=== PATIENT | female | born 1940 | race Asian ===

== ENCOUNTER 2017-05-11 10:50 | Emergency (ER) | payer MEDICARE, OTHER ==
[~2017-05-11] VITALS: Ht 160 cm; Wt 63.5 kg
[2017-05-11 15:10] LABS: Basophils # (auto) 0 uL; Basophils % (auto) 0.3 % (0.0-2.0); Eosinophils # (auto) 0.2 uL; Eosinophils % (auto) 2.1 % (0.0-7.0); Hematocrit 38.5 % (36.0-46.0); Hemoglobin 12.9 g/dL (12.2-16.2); Lymphocytes # (auto) 1.8 uL; Lymphocytes % (auto) 20.7 % (10.0-50.0); Mean Corpuscular Hemoglobin 30.9 pg (28.0-32.0); Mean Corpuscular Hgb Conc. 33.5 g/dL (32.0-36.0); Mean Corpuscular Volume 92.2 fL (80.0-100.0); Monocytes # (auto) 0.1 uL; Monocytes % (auto) 1.3 % (0.0-12.0); Neutrophils # (auto) 6.7 uL; Neutrophils % (auto) 75.6 % (37.0-80.0); Nucleated Red Blood Cells % 0.2 %; Platelet Count (auto) 165 10^3/uL (140-450); Red Blood Cells 4.18 10^6/uL (4.0-5.20); Red Cell Distribution Width 15.1 % (11.8-14.3); White Blood Cell 8.8 10^3/uL (4.4-10.8)
[2017-05-11 15:19] LABS: Potassium 4.4 mmol/L (3.5-5.1)
[2017-05-11 15:20] LABS: Albumin 3.5 g/dL (3.4-5.0); BUN/Creatinine Ratio 21.1; Bilirubin, Total 1.3 mg/dL (0.2-1.0); Calcium 8.3 mg/dL (8.5-10.1); Total Protein 7.4 g/dL (6.4-8.2)
[2017-05-11 20:53] LABS: Urine Bacteria FEW /hpf (None Seen); Urine Blood 1+ /uL (Negative); Urine Hyaline Cast FEW /lpf (0 - 2); Urine Mucus FEW (None Seen); Urine Specific Gravity 1.025 (1.001-1.035); Urine WBC 382 /hpf (0 - 5)
[2017-05-12 01:50] VITALS: BP 106/62
== END 2017-05-12 03:26 | disposition left against medical advice (07) ==
LOC: EDBD 10:50 → ER 10:50
DX: J06.9 Acute upper respiratory infection, unspecified (principal); K72.90 Hepatic failure, unspecified without coma
CPT/HCPCS: 36415; 71046; 80053; 81001; 85025; 93005

== ENCOUNTER 2018-11-11 18:37 | Inpatient (IN) | payer MEDICARE, OTHER ==
[~2018-11-11] VITALS: Ht 160 cm; Wt 73.2 kg
[2018-11-11] MEDS ORDERED: IPRATROPIUM BROM 0.5 MG/2.5ML INH SOL NEB ONE (23:15)
[2018-11-11] MEDS ORDERED: ALBUTEROL SULF 2.5 MG/0.5ML(0.5%) NEB SOLN NEB ONE (23:15)
[2018-11-11 23:27] LABS: Basophils # (auto) 0 uL; Eosinophils # (auto) 0.2 uL; Monocytes # (auto) 0.5 uL
[2018-11-11 23:29] LABS: Basophils % (auto) 0.6 % (0.0-2.0); Eosinophils % (auto) 4.1 % (0.0-7.0); Lymphocytes # (auto) 1.3 uL; Lymphocytes % (auto) 26.4 % (10.0-50.0); Mean Corpuscular Hemoglobin 24.2 pg (28.0-32.0); Mean Corpuscular Hgb Conc. 31.6 g/dL (32.0-36.0); Mean Corpuscular Volume 76.7 fL (80.0-100.0); Monocytes % (auto) 9.9 % (0.0-12.0); Platelet Count (auto) 154 10^3/uL (140-450); Red Blood Cells 4.56 10^6/uL (4.0-5.20); Red Cell Distribution Width 19.8 % (11.8-14.3); White Blood Cell 5.1 10^3/uL (4.4-10.8)
[2018-11-11 23:35] LABS: Urine Bacteria FEW /hpf (None Seen); Urine Blood Negative /uL (Negative); Urine Mucus FEW (None Seen); Urine Specific Gravity 1.024 (1.001-1.035); Urine WBC 1 /hpf (0 - 5)
[2018-11-11 23:40] LABS: Partial Thromboplastin Time 26.3 sec (23.64-32.05)
[2018-11-11 23:45] LABS: Alanine Aminotransferase 12 U/L (13-56); Anion Gap 10 (5-15); Aspartate Aminotransferase 10 U/L (15-37); BUN/Creatinine Ratio 20.2; Blood Urea Nitrogen 18 mg/dL (7-18); Carbon Dioxide 22 mmol/L (21-32); Chloride 111 mmol/L (98-107); GFR African American 79 mL/min; GFR Non-African American 65 mL/min; Glucose 98 mg/dL (74-106); Sodium 143 mmol/L (136-145)
[2018-11-11 23:47] LABS: Lactic Acid w/Reflex 2.9 mmol/L (0.4-2.0)
[2018-11-11 23:50] LABS: Alkaline Phosphatase 105 U/L (45-117); Bilirubin, Total 0.3 mg/dL (0.2-1.0); Total Protein 7.1 g/dL (6.4-8.2)
[2018-11-12] VITALS (7 sets, daily range): BP systolic 94–115; BP diastolic 49–70
[2018-11-12] MEDS ORDERED: VANCOMYCIN 1GM/250ML 250 ML IV ONE (01:15)
[2018-11-12] MEDS ORDERED: SODIUM CHLORIDE 0.9% 500 ML IV ONE (01:30)
[2018-11-12] MEDS ORDERED: ACETAMINOPHEN 325 MG TAB PO PRN (02:30)
[2018-11-12] MEDS ORDERED: TEMAZEPAM 15 MG CAP PO PRN (02:30)
[2018-11-12] MEDS ORDERED: ONDANSETRON HCL 4 MG/2 ML VIAL IV PRN (02:30)
[2018-11-12] MEDS ORDERED: ALBUTEROL SULF 2.5 MG/0.5ML(0.5%) NEB SOLN NEB PRN (02:30)
--- NOTE | 2018-11-12 03:05 | NUR ---
MS admit from ER PRAMOD MARR admitted to tele/MS after SBAR received. Patient oriented to Amanda Brewster, primary RN, unit, room, bed, and unit policies regarding patient care and visiting hours. Patient weighed by bedscale and encouraged to call if they need something. All questions and concerns addressed, patient verbalized understanding. Note:
--- NOTE | 2018-11-12 04:00 | NUR ---
PHOTOGRAPH OF BOIL ON RIGHT BUTTOCK OBTAINED.
[2018-11-12] MEDS: CLINDAMYCIN 600MG IV 50 ML IV SCH ×3 (05:27→21:36)
--- NOTE | 2018-11-12 06:31 | NUR ---
PT STATES SHE IS IN PAIN-BUT IS REFUSING TYLENOL WHICH IS WHAT THE MD HAS ORDERED FOR HER.PT STATES SHE WANTS THREE "STRESS PILLS' BUT DOES NOT KNOW THE NAME OF THE STRESS PILLS.PT AMBULATED TO THE BR WITH STANDBY ASSISTANCE;BACK IN BED. PT INFORMED THE RN IN JAPANESE VIA WEAVING LOOM OPERATOR IAP DISPLAYS ANALYST THAT THE MD DOWNSTAIRS SAID WE WERE TO GIVE HER ANYTHING SHE WANTS.
--- NOTE | 2018-11-12 06:55 | NUR ---
HOSPITALIST PAGED THROUGH PBX BECAUSE PT WANTS SIMPSON. WAITING CALL BACK.
[2018-11-12] MEDS: HYDROcodone-ACET 5/325MG TAB PO PRN ×2 (07:19→18:54)
--- NOTE | 2018-11-12 07:22 | NUR ---
Opening Shift Note Assumed care of patient, awake and alert. No S/S of distress/SOB or pain. Instructed on POC and to call for assist PRN, will continue to monitor for changes Q1hr and PRN. Bed locked in lowest position with two side rails up and call light in reach.
--- NOTE | 2018-11-12 08:34 | NUR ---
Respiratory note: ASSESSED PT FOR PRN TX PT WAS AWAKE AND ALERT NO RESP DISTRESS NOTED. HR 79, RR 16, SPO2 96% ON ROOM AIR. BS ARE CLEAR, NO INDICATION FOR TX AT THIS TIME. PT KNOWS TO HAVE RT PAGED IF TX IS NEEDED.
[2018-11-12] MEDS: ATENOLOL 25 MG TAB PO SCH ×2 (10:00→21:36)
[2018-11-12] MEDS: FAMOTIDINE 20 MG TAB PO SCH ×2 (10:00→21:36)
--- NOTE | 2018-11-12 19:20 | NUR ---
Respiratory note: ASSESSED PT FOR PRN MED NEB AT THIS TIME, NO RESP DISTRESS NOTED, NO TX INDICATED, PULSE OX 93% ON RA, HR 78, RR 22, BILATERAL BS CRACKLES.
--- NOTE | 2018-11-12 20:00 | NUR ---
OPENING SHIFT NOTE: PATIENT IS RESTING IN BED. NO COMPLAINTS OF PAIN OR SOB. SITTER IS BEDSIDE. CALL LIGHT IS WITHIN REACH. BED IS LOCKED IN LOWEST POSITION AND SIDE RAILS UP X2. WILL CONTINUE TO MONITOR.
[2018-11-13 05:51] LABS: Eosinophils # (auto) 0.3 uL; Hemoglobin 10.8 g/dL (12.2-16.2); Monocytes # (auto) 0.4 uL; Neutrophils # (auto) 2.3 uL
[2018-11-13 05:56] LABS: Basophils # (auto) 0.1 uL; Basophils % (auto) 1.9 % (0.0-2.0); Hematocrit 33.6 % (36.0-46.0); Lymphocytes % (auto) 24.3 % (10.0-50.0); Mean Corpuscular Hemoglobin 24.9 pg (28.0-32.0); Mean Corpuscular Hgb Conc. 32.1 g/dL (32.0-36.0); Mean Corpuscular Volume 77.6 fL (80.0-100.0); Monocytes % (auto) 9.7 % (0.0-12.0); Neutrophils % (auto) 56.1 % (37.0-80.0); Nucleated Red Blood Cells % 0.1 %; Platelet Count (auto) 49 10^3/uL (140-450); Red Blood Cells 4.33 10^6/uL (4.0-5.20); Red Cell Distribution Width 19.8 % (11.8-14.3); White Blood Cell 4.1 10^3/uL (4.4-10.8)
[2018-11-13 06:04] LABS: Anion Gap 8 (5-15); BUN/Creatinine Ratio 27.9; Blood Urea Nitrogen 19 mg/dL (7-18); Calcium 8.2 mg/dL (8.5-10.1); Carbon Dioxide 21 mmol/L (21-32); Chloride 113 mmol/L (98-107); GFR African American 108 mL/min; GFR Non-African American 89 mL/min; Glucose 81 mg/dL (74-106); Potassium 4.7 mmol/L (3.5-5.1); Sodium 142 mmol/L (136-145)
[2018-11-13] MEDS: HYDROcodone-ACET 5/325MG TAB PO PRN ×2 (06:29→18:38)
[2018-11-13] MEDS: CLINDAMYCIN 600MG IV 50 ML IV SCH ×3 (06:29→22:01)
[2018-11-13 08:00] VITALS: BP 101/61
--- NOTE | 2018-11-13 08:34 | NUR ---
RT NOTE: PRN BREATHING TX. NOT INDICATED AT THIS TIME. NO S/S OF RESPIRATORY DISTRESS NOTED. PT.HR 68, RR 20, POX 96% R/A. SITTER AT BEDSIDE.
--- NOTE | 2018-11-13 09:03 | NUR ---
PAGED AND RECEIVED A CALL BACK FROM ASSISTANT PROPERTY MANAGER DEPARTMENT HELPER [employer]. NOTIFIED HER OF SOCIAL SERVICE CONSULT.
--- NOTE | 2018-11-13 09:30 | NUR ---
PATIENTS ROMA MURPHY BROUGHT PATIENT HER HOME WALKER. WALKER AT BEDSIDE.
[2018-11-13] MEDS: ATENOLOL 25 MG TAB PO SCH ×2 (10:00→22:00)
[2018-11-13] MEDS: FAMOTIDINE 20 MG TAB PO SCH ×2 (10:00→22:00)
[2018-11-13 10:05] VITALS: BP 101/61
--- NOTE | 2018-11-13 10:50 | NUR ---
DR MARC FUNEZ
--- NOTE | 2018-11-13 11:55 | NUR ---
PATIENT TOOK SHOWER BACK IN BED WITHOUT INCIDENT.
--- NOTE | 2018-11-13 12:45 | NUR ---
CALLED ROMA MURPHY AT [phone] CELL NUMBER PER SON HE WORKS FROM [phone] DAILY AND WILL NOT BE ABLE TO PICK HER UP UNTIL AFTER 152911/14/18. EVEN THOUGH HE WORKS DAILY SHE DOES HAVE A HOME HEALTH AGENCY THAT COMES OUT FROM [phone] DAILY, PER SON HE DOES NOT KNOW HEALTH CARE AGENCY NAME. PER ROMA MURPHY IT IS OK TO DISCHARGE HOME TOMORROW. WILL LET DR TRAN KNOW
[2018-11-13 13:00] VITALS: BP 93/51
--- NOTE | 2018-11-13 14:45 | NUR ---
ROUNDS PATIENT SLEEPING
--- NOTE | 2018-11-13 15:36 | NUR ---
ROUNDS PATIENT TALKING WITH NEIGHBORS FAMILY. NO SIGNS AND SYMPTOMS OF DISTRESS NOTED.
[2018-11-13 17:00] VITALS: BP 93/54
--- NOTE | 2018-11-13 17:18 | NUR ---
PATIENTS BLOOD PRESSURES HAVE BEEN ON THE LOWER SIDE THE PAST TWO DAYS LAST BP FOR MY SHIFT 94/62 HEART RATE 65. ASYMPTOMATIC AMBULATORY.
--- NOTE | 2018-11-13 20:30 | NUR ---
Respiratory note: ASSESSED PT FOR PRN TX. PT IS CURRENTLY ON ROOM AIR: HR 70, RR 18, SPO2 96%. PT SHOWS NO S/S OF RESPIRATORY DISTRESS. MED NEB TX NOT INDICATED AT THIS TIME. WILL CONTINUE TO MONITOR.
[2018-11-13 22:15] VITALS: BP 126/75
[2018-11-14 05:00] VITALS: BP 105/51
[2018-11-14 08:39] VITALS: BP 146/79
[2018-11-14] MEDS: CLINDAMYCIN 600MG IV 50 ML IV SCH (08:40)
[2018-11-14] MEDS: HYDROcodone-ACET 5/325MG TAB PO PRN (08:40)
--- NOTE | 2018-11-14 09:46 | NUR ---
Respiratory note: ASSESSED PT FOR PRN MEDNEB TX. HR 71, RR 16, POX 98% ON ROOM AIR. BREATH SOUNDS CLEAR/DIMINISHED THROUGHOUT. NO S/S OF RESPIRATORY DISTRESS NOTED. MEDNEB TX NOT INDICATED AT THIS TIME. WROTE RT NAME AND PAGER NUMBER ON WHITEBOARD. WILL CONTINUE TO MONITOR.
[2018-11-14] MEDS: FAMOTIDINE 20 MG TAB PO SCH (10:00)
[2018-11-14] MEDS: ATENOLOL 25 MG TAB PO SCH (10:00)
[2018-11-14 12:39] VITALS: BP 144/70
[2018-11-14 13:59] VITALS: BP 146/79
--- NOTE | 2018-11-14 16:51 | NUR ---
assessment Patient is a 78 year old Zimbabwean speaking female who is alert and oriented. Patients caregiver Cierra is translating for us. Patients PCP is Dr Herrera. Patient has a rollator for home use. Patient has been informed that she has a ss consult for patient is unable to take care of herself. 2nd ss consult SNF placement. Patient is refusing SNF. Patient will return home with caregiver and son on discharge. Patient and her caregiver Cierra informed me that patient is never alone. Per Cierra she comes in from 8am to 3pm and patients son Mike is with patient from 3pm until 8am. Patient feels safe at home and has no post discharge needs. Addendum: 11/14/18 at 1655 by Funmilayo Brumfield Amended: Links added.
== END 2018-11-14 14:50 | disposition home or self-care (01) | DRG 602 ==
LOC: EDBD 18:37 → ER 18:43 → WEST WING 18:44
PROVIDERS: ADMIT Nurse Practitioner; ATTEND Family Medicine
DX: L02.31 Cutaneous abscess of buttock (principal); J18.9 Pneumonia, unspecified organism; R62.7 Adult failure to thrive; I50.9 Heart failure, unspecified; I11.0 Hypertensive heart disease with heart failure; K21.9 Gastro-esophageal reflux disease without esophagitis; G47.00 Insomnia, unspecified; L03.317 Cellulitis of buttock; Z95.0 Presence of cardiac pacemaker; Z88.0 Allergy status to penicillin; Z79.899 Other long term (current) drug therapy; Z88.2 Allergy status to sulfonamides; Z68.28 Body mass index [BMI] 28.0-28.9, adult
CPT/HCPCS: 36415; 71045; 80048; 80053; 81001; 83605; 83880; 84484; 85025; 85610; 85730; 87040; 93005; 94640; 96365; G0378; J3490

== ENCOUNTER 2019-10-24 08:58 | Inpatient (IN) | payer MEDICARE, OTHER ==
[~2019-10-24] VITALS: Ht 154.9 cm; Wt 79.8 kg
[2019-10-24] MEDS ORDERED: ACETAMINOPHEN 650 MG RECT SUPP PR ONE ×2 (09:44→09:48)
[2019-10-24] MEDS ORDERED: LORazepam 2MG/ML-1ML VIAL ONE ×2 (10:00→10:02)
[2019-10-24] MEDS ORDERED: LORazepam 2MG/ML-1ML VIAL IV ONE ×2 (10:00→11:45)
[2019-10-24] MEDS ORDERED: IBUPROFEN 100MG/5ML ORAL SUSP 100 MG/5 ML UD ONE (10:21)
[2019-10-24] MEDS ORDERED: ACETAMINOPHEN 650 mg PER 20 mL UD ONE (10:21)
[2019-10-24] MEDS ORDERED: ACETAMINOPHEN 650 mg PER 20 mL UD PO ONE ×2 (10:30→20:45)
[2019-10-24] MEDS ORDERED: IBUPROFEN 100MG/5ML ORAL SUSP 100 MG/5 ML UD PO ONE (10:30)
[2019-10-24 10:31] LABS: Urine Bacteria FEW /hpf (None Seen); Urine Blood Negative /uL (Negative); Urine Mucus FEW (None Seen); Urine Specific Gravity 1.029 (1.001-1.035); Urine WBC 2 /hpf (0 - 5)
[2019-10-24] MEDS ORDERED: diphenhdrAMINE HCL 50 MG/1 ML VL IV ONE (11:45)
[2019-10-24] MEDS ORDERED: HALOPERIDOL LACTATE 5 MG/ML INJ VIAL IM ONE (11:45)
[2019-10-24 12:37] LABS: Albumin 2.7 g/dL (3.4-5.0)
[2019-10-24 12:38] LABS: INR 1.23 (0.9-1.15); Lactic Acid w/Reflex 10.9 mmol/L (0.4-2.0); Partial Thromboplastin Time 29.2 sec (23.64-32.05)
[2019-10-24 12:40] LABS: Albumin 2.7 g/dL (3.4-5.0); Anion Gap 18 (5-15); Blood Urea Nitrogen 39 mg/dL (7-18); Carbon Dioxide 16 mmol/L (21-32); Chloride 113 mmol/L (98-107); Glucose 99 mg/dL (74-106); Magnesium 2.3 mg/dL (1.6-2.6); Potassium 4.6 mmol/L (3.5-5.1); Sodium 147 mmol/L (136-145)
[2019-10-24 12:42] LABS: Bilirubin, Direct 0.3 mg/dL (0-0.2); Bilirubin, Total 0.8 mg/dL (0.2-1.0); Total Protein 6.3 g/dL (6.4-8.2)
[2019-10-24 12:44] LABS: Alanine Aminotransferase 23 U/L (13-56); Alkaline Phosphatase 58 U/L (45-117); Aspartate Aminotransferase 64 U/L (15-37); BUN/Creatinine Ratio 19.4; Bilirubin, Total 0.8 mg/dL (0.2-1.0); GFR African American 31 mL/min; GFR Non-African American 25 mL/min; Lactate Dehydrogenase 396 U/L (84-246); Total Protein 6.3 g/dL (6.4-8.2)
[2019-10-24] MEDS ORDERED: LABETALOL HCL 5 MG/ML 4ML SYRINGE IV ONE ×2 (12:58→13:00)
[2019-10-24] MEDS ORDERED: ONDANSETRON HCL 4 MG/2 ML VIAL ONE (13:00)
[2019-10-24] MEDS ORDERED: HEPARIN SODIUM (PORCINE) 5000 UNITS/ML 1ML VIAL IV ONE (13:00)
[2019-10-24] MEDS ORDERED: MORPHINE SULF INJ 2 MG/ML SYRINGE 1ML ONE (13:00)
[2019-10-24 13:11] LABS: Blood Alcohol < 3.0 mg/dL (0-5)
[2019-10-24] MEDS ORDERED: NITROGLYCERIN 50MG/250ML 250 ML IV ONE (13:15)
[2019-10-24] MEDS ORDERED: HEPARIN IN NS 1000Units/500mL 0 ML ONE (13:27)
[2019-10-24] MEDS ORDERED: IODIXANOL 320MG/ML 100ML BTL IV ONE (13:27)
[2019-10-24] MEDS ORDERED: LIDOCAINE 2%HCL (LOCAL ANESTH.) INJ 20ML MDV ONE (13:27)
[2019-10-24] MEDS ORDERED: IOHEXOL 350 MG/ML 100ML IJ ONE (13:31)
[2019-10-24] MEDS ORDERED: levoFLOXacin 500MG 100 ML IV ONE (14:00)
[2019-10-24] MEDS ORDERED: MORPHINE SULF INJ 2 MG/ML SYRINGE 1ML IV PRN (14:00)
[2019-10-24] MEDS ORDERED: NITROGLYCERIN 0.4 MG SL TAB SL PRN (14:00)
[2019-10-24] MEDS ORDERED: MEROPENEM 1 GM IVP SCH (14:00)
[2019-10-24] MEDS ORDERED: PANTOPRAZOLE 40mg/50ML NS AE 50 ML IV ONE (14:00)
[2019-10-24 14:11] LABS: Eosinophils # (auto) 0 10 ^3/uL (0-0.8); Lymphocytes # (auto) 1.3 10 ^3/uL (0.4-5.4)
[2019-10-24 14:12] LABS: Basophils # (auto) 0 10 ^3/uL (0-0.2); Basophils % (auto) 0.2 % (0.0-2.0); Eosinophils % (auto) 0.1 % (0.0-7.0); Hematocrit 33.3 % (36.0-46.0); Hemoglobin 10.5 g/dL (12.2-16.2); Lymphocytes % (auto) 10.2 % (10.0-50.0); Mean Corpuscular Hemoglobin 25.4 pg (28.0-32.0); Mean Corpuscular Hgb Conc. 31.6 g/dL (32.0-36.0); Mean Corpuscular Volume 80.2 fL (80.0-100.0); Monocytes # (auto) 1.1 10 ^3/uL (0-1.3); Monocytes % (auto) 8.6 % (0.0-12.0); Neutrophils % (auto) 80.9 % (37.0-80.0); Nucleated Red Blood Cells % 0.1 %; Platelet Count (auto) 127 10^3/uL (140-450); Red Blood Cells 4.15 10^6/uL (4.0-5.20); White Blood Cell 12.4 10^3/uL (4.4-10.8)
[2019-10-24] MEDS ORDERED: MEROPENEM 1GM IVPB 100 ML IV ONE (14:15)
[2019-10-24] MEDS ORDERED: ONDANSETRON HCL 4 MG/2 ML VIAL IV ONE (14:15)
[2019-10-24] MEDS ORDERED: MORPHINE SULF INJ 2 MG/ML SYRINGE 1ML IV ONE (14:15)
[2019-10-24] MEDS ORDERED: ETOMIDATE (2MG/ML) 20ML VIAL IV ONE ×2 (14:18→15:00)
[2019-10-24] MEDS ORDERED: SUCCINYLCHOLINE CHLORIDE 20 MG/ML 10ML VIAL IV ONE (14:18)
[2019-10-24] MEDS ORDERED: MIDAZOLAM DRIP 50 mg/50mL 50 ML IV ONE (14:50)
[2019-10-24] MEDS: MIDAZOLAM DRIP 50 mg/50mL 50 ML IV SCH ×2 (14:53→17:21)
[2019-10-24] MEDS ORDERED: NOREPINEPHRINE 8 MG/250ML KIT 250 ML IV ONE (15:05)
[2019-10-24] MEDS ORDERED: DOPamine 1600MCG/ML D5W 250 ML IV ONE (15:11)
[2019-10-24] MEDS ORDERED: SODIUM BICARBONATE 8.4 % INJ 50ML VIAL IV ONE ×2 (15:15→17:45)
[2019-10-24] MEDS: NOREPINEPHRINE 8 MG/250ML KIT 250 ML IV SCH (15:17)
[2019-10-24] MEDS: DOPamine 1600MCG/ML D5W 250 ML IV SCH (15:30)
[2019-10-24] MEDS ORDERED: SODIUM CHLORIDE 0.9% 3,000 ML IV ONE (16:00)
[2019-10-24] MEDS ORDERED: OCTREOTIDE ACETATE 100 MCG in SODIUM CHL 0.9% 50 ML IV ONE (16:30)
[2019-10-24] MEDS ORDERED: PHENYLEPHRINE IV 250 ML IV ONE (16:38)
[2019-10-24] MEDS: PHENYLEPHRINE IV 250 ML IV SCH (16:55)
[2019-10-24] MEDS: D5W/SOD CHL 0.45% 1,000 ML IV SCH (17:19)
[2019-10-24] MEDS ORDERED: FUROSEMIDE 20 MG/2 ML VIAL IV ONE (18:15)
[2019-10-24 18:16] VITALS: BP 104/62
[2019-10-24] MEDS ORDERED: SODIUM BICARBONATE 50ML VIAL 50 ML in SOD CHL 0.45% 1,000 ML IV ONE (18:45)
[2019-10-24 20:34] VITALS: BP 100/62
[2019-10-24 21:56] VITALS: BP 99/62
[2019-10-24] MEDS ORDERED: MEROPENEM 1GM IVPB 100 ML IV SCH (22:00)
[2019-10-24] MEDS ORDERED: MEROPENEM 500MG IVPB 50 ML IV SCH (22:00)
[2019-10-25] VITALS (12 sets, daily range): BP systolic 76–117; BP diastolic 44–70
[2019-10-25] MEDS: D5W/SOD CHL 0.45% 1,000 ML IV SCH ×3 (01:01→20:11)
[2019-10-25] MEDS: PHENYLEPHRINE IV 250 ML IV SCH ×3 (01:01→17:43)
[2019-10-25 01:18] LABS: Hemoglobin 11.7 g/dL (12.2-16.2)
[2019-10-25 01:20] LABS: Hematocrit 36.4 % (36.0-46.0)
[2019-10-25 06:45] LABS: Basophils # (auto) 0 10 ^3/uL (0-0.2); Basophils % (auto) 0.4 % (0.0-2.0); Eosinophils # (auto) 0.1 10 ^3/uL (0-0.8); Monocytes # (auto) 0.5 10 ^3/uL (0-1.3); Neutrophils # (auto) 7.3 10 ^3/uL (1.6-8.6); White Blood Cell 9.1 10^3/uL (4.4-10.8)
[2019-10-25 06:47] LABS: Hematocrit 37.7 % (36.0-46.0); Hemoglobin 12.1 g/dL (12.2-16.2); Lymphocytes # (auto) 1.2 10 ^3/uL (0.4-5.4); Lymphocytes % (auto) 12.7 % (10.0-50.0); Mean Corpuscular Hemoglobin 26.3 pg (28.0-32.0); Mean Corpuscular Hgb Conc. 32.2 g/dL (32.0-36.0); Mean Corpuscular Volume 81.6 fL (80.0-100.0); Monocytes % (auto) 5.3 % (0.0-12.0); Neutrophils % (auto) 80.6 % (37.0-80.0); Nucleated Red Blood Cells % 0.1 %; Platelet Count (auto) 91 10^3/uL (140-450); Red Blood Cells 4.62 10^6/uL (4.0-5.20)
[2019-10-25 07:02] LABS: Potassium 3.5 mmol/L (3.5-5.1)
[2019-10-25 07:05] LABS: Albumin 1.8 g/dL (3.4-5.0); BUN/Creatinine Ratio 25.9; Calcium 6.4 mg/dL (8.5-10.1)
[2019-10-25 07:07] LABS: Bilirubin, Total 1.2 mg/dL (0.2-1.0); Total Protein 5.1 g/dL (6.4-8.2)
[2019-10-25] MEDS: DOPamine 1600MCG/ML D5W 250 ML IV SCH (07:45)
[2019-10-25] MEDS ORDERED: FUROSEMIDE 40 MG/4 ML VIAL IV ONE (09:45)
[2019-10-25] MEDS ORDERED: ACETAMINOPHEN 650 MG RECT SUPP PR PRN ×2 (10:00→10:45)
[2019-10-25] MEDS: MEROPENEM 1GM IVPB 100 ML IV SCH ×2 (10:24→22:19)
--- NOTE | 2019-10-25 11:24 | NUR ---
WOUND CARE NOTE: Added patient to wound care monitoring list due to intubation status, low Lyle score,putting patient to high risk for skin breakdown. Patient is 79 years old female with admitting diagnosis of Acute GI Bleed, AMI, Sepsis. Witnessed patient being transferred from [facility] to ICU bed in ER bed#8. No open wound, no pressure injury noted other than linear scab scratches to mclean. Patient tolerated well, repositioned for comfort. CLEM Almaguer at bedside. RECOMMENDATION: BID/PRN cleaning and application of Barrier cream to sacral, buttocks as preventative , frequent turning and repositioning schedule as condition permits, redistribute pressure points with pillows,elevate heels on pillows, continue monitoring by wound care while patient is intubated.
[2019-10-25 14:31] LABS: Hematocrit 41.5 % (36.0-46.0); Hemoglobin 12.9 g/dL (12.2-16.2)
[2019-10-25] MEDS: NOREPINEPHRINE 8 MG/250ML KIT 250 ML IV SCH (15:16)
[2019-10-25] MEDS ORDERED: VANCOMYCIN PER PHARMACY 0 MG IV SCH (18:45)
[2019-10-25] MEDS ORDERED: ACETAMINOPHEN 650 mg PER 20 mL UD GT ONE (19:00)
[2019-10-25] MEDS ORDERED: VANCOMYCIN 750mg/250ml 250 ML IV SCH (20:00)
[2019-10-25] MEDS ORDERED: IBUPROFEN 100MG/5ML ORAL SUSP 100 MG/5 ML UD GT ONE (21:15)
[2019-10-25] MEDS ORDERED: VANCOMYCIN 1GM/250ML 250 ML IV SCH (22:00)
[2019-10-25] MEDS: PANTOPRAZOLE 40 MG/10 ML VIAL INJ IV SCH (22:45)
[2019-10-25] MEDS ORDERED: SODIUM BICARBONATE 50ML VIAL 100 ML in SOD CHL 0.45% 1,000 ML IV ONE (23:45)
[2019-10-25] MEDS ORDERED: SODIUM BICARBONATE 8.4 % INJ 50ML VIAL IV ONE (23:45)
[2019-10-25] MEDS ORDERED: SODIUM BICARBONATE 8.4% INJ 50ML SYRINGE ONE (23:46)
[2019-10-26] VITALS (67 sets, daily range): BP systolic 78–118; BP diastolic 45–69
[2019-10-26] MEDS: DOPamine 1600MCG/ML D5W 250 ML IV SCH ×2 (00:01→17:07)
[2019-10-26] MEDS: PHENYLEPHRINE IV 250 ML IV SCH ×3 (01:50→17:08)
[2019-10-26 02:06] LABS: Hemoglobin 13.1 g/dL (12.2-16.2)
[2019-10-26] MEDS: D5W/SOD CHL 0.45% 1,000 ML IV SCH ×2 (06:09→17:07)
[2019-10-26 06:40] LABS: Calcium 6.7 mg/dL (8.5-10.1); Potassium 3.1 mmol/L (3.5-5.1)
[2019-10-26 06:44] LABS: BUN/Creatinine Ratio 18.4
--- NOTE | 2019-10-26 08:50 | NUR ---
ADMIT TO ICU PRAMOD MARR admitted to ICU via gurney on bleacher groundwood pulp, intubated and being bagged by Respiratory Therapist May. Patient transferred to bed 108, connected to mechanical ventilator by therapist, IAN at bedside. Patient connected to ICU monitoring, weighed by bedscale, oriented to Omaira Du primary RN, unit, ventilator and sedation (Versed). Patient on vasopressor therapy (Levophed and Dopamine). IVF fluid running into right IJ TLC, patient also has Right Femoral TLC with CVP monitoring, 5. Physical assessment completed. Partial linen change complete and patient repositioned on side. Tolerated activity fair. Patient opening eyes to stimuli. No distress noted. Temperature 100.4 rectal. Cooling measures initiated. Bed locked in lowest position, alarms in place. Will continue to monitor.
[2019-10-26 09:03] LABS: Hepatitis B Surface Antibody Negative
[2019-10-26] MEDS: VANCOMYCIN 1GM/250ML 250 ML IV SCH (09:12)
--- NOTE | 2019-10-26 10:30 | NUR ---
MD VISIT at bedside assessing patient. No new orders received at this time.
[2019-10-26] MEDS: MEROPENEM 1GM IVPB 100 ML IV SCH ×2 (10:37→22:11)
[2019-10-26] MEDS: PANTOPRAZOLE 40 MG/10 ML VIAL INJ IV SCH ×2 (10:40→22:11)
[2019-10-26 10:54] LABS: Hepatitis B Core Total AB Negative; Hepatitis B Surface Antigen Negative (Negative)
--- NOTE | 2019-10-26 11:33 | NUR ---
CONTACT Called daughters number listed to obtain medical information for admission. No answer, message left.
[2019-10-26] MEDS: MIDAZOLAM DRIP 50 mg/50mL 50 ML IV SCH ×4 (12:50→23:43)
[2019-10-26] MEDS: NOREPINEPHRINE 8 MG/250ML KIT 250 ML IV SCH ×2 (14:51→19:22)
--- NOTE | 2019-10-26 14:52 | NUR ---
ANDERSON Anderson catheter bag leaking. Small hole noted in bag. New Anderson catheter bag placed.
--- NOTE | 2019-10-26 19:00 | NUR ---
LAB Blood obtained from central line and sent to lab.
--- NOTE | 2019-10-26 19:23 | NUR ---
REPORT Report given to Deysi NJ, care endorsed.
[2019-10-26 19:28] LABS: Magnesium 1.5 mg/dL (1.6-2.6); Potassium 3.3 mmol/L (3.5-5.1)
--- NOTE | 2019-10-26 19:47 | NUR ---
DR DIALLO PAGED REGARDING K+ AND MG+ LABS. AWAIT CALL BACK.
--- NOTE | 2019-10-26 20:00 | NUR ---
OPEN ASSUMED CARE OF FEMALE PT ORALLY INTUBATED. PT SEDATED ON VERSED GTT 15 MG/HR. PT GRIMACES AND WITHDRAWS TO TACTILE STIMULI. OTHERWISE NON RESPONSIVE. SINUS TACH ON INFORMATION ASSISTANT. LEVOPHED GTT INFUSING AT 24MCG/MIN, DOPAMINE GTT INFUSING AT 10 MCG/KG/MIN. D5 0.45 NS INFUSING AT 100 ML/HR. PT WITH R. IJ TLC ALL PORTS PATENT. DRESSING CDI. TLC TO R. FEMORAL. ALL PORTS PATENT. DRESSING CDI. NGT TO L. NARE CLAMPED. PLACEMENT VERIFIED. ANDERSON TO GRAVITY DRAINING CLEAR YELLOW URINE. PALMIRA SCD'S IN PLACE. NO SKIN BREAKDOWN OBSERVED. PT WITH MALFORMED FINGERS AND THUMBS. HX OF ARTHRITIS. BED IN LOWEST LOCKED POSITION. PILLOWS USED TO OFFLOAD BONY PROMINENCES AND PALMIRA HEELS. HOB ELEVATED 30 DEGREES. ORAL CARE PROVIDED. PT IN FULL VIEW OF RN STATION. WILL CONTINUE TO MONITOR.
[2019-10-27] VITALS (104 sets, daily range): BP systolic 63–132; BP diastolic 35–80
--- NOTE | 2019-10-27 03:15 | NUR ---
Patient bathe/linen change Patient given complete bath. Skin integrity assessed for any changes. Linens changed. Patient repositioned for comfort.
[2019-10-27] MEDS: D5W/SOD CHL 0.45% 1,000 ML IV SCH ×3 (03:20→18:23)
[2019-10-27] MEDS: PHENYLEPHRINE IV 250 ML IV SCH ×4 (04:00→23:31)
[2019-10-27] MEDS: MIDAZOLAM DRIP 50 mg/50mL 50 ML IV SCH ×4 (04:15→23:34)
[2019-10-27 04:31] LABS: Basophils # (auto) 0 10 ^3/uL (0-0.2); Eosinophils # (auto) 0.2 10 ^3/uL (0-0.8); Hemoglobin 11.3 g/dL (12.2-16.2); Monocytes # (auto) 0.5 10 ^3/uL (0-1.3)
[2019-10-27 04:34] LABS: Basophils % (auto) 0.2 % (0.0-2.0); Eosinophils % (auto) 2.1 % (0.0-7.0); Hematocrit 34.4 % (36.0-46.0); Lymphocytes # (auto) 0.9 10 ^3/uL (0.4-5.4); Lymphocytes % (auto) 10.9 % (10.0-50.0); Mean Corpuscular Hemoglobin 26.1 pg (28.0-32.0); Mean Corpuscular Hgb Conc. 32.8 g/dL (32.0-36.0); Mean Corpuscular Volume 79.5 fL (80.0-100.0); Monocytes % (auto) 5.8 % (0.0-12.0); Neutrophils # (auto) 6.3 10 ^3/uL (1.6-8.6); Platelet Count (auto) 79 10^3/uL (140-450); Red Blood Cells 4.33 10^6/uL (4.0-5.20); Red Cell Distribution Width 19.8 % (11.8-14.3); White Blood Cell 7.8 10^3/uL (4.4-10.8)
[2019-10-27 04:52] LABS: Lactic Acid w/Reflex 2.5 mmol/L (0.4-2.0)
[2019-10-27 05:46] LABS: Calcium 6.8 mg/dL (8.5-10.1); Potassium 3.3 mmol/L (3.5-5.1)
[2019-10-27 05:51] LABS: BUN/Creatinine Ratio 18.3
[2019-10-27] MEDS: DOPamine 1600MCG/ML D5W 250 ML IV SCH (07:40)
[2019-10-27] MEDS: POTASSIUM CHL 20MEQ/100ML 100 ML IV SCH ×2 (07:55→09:50)
[2019-10-27] MEDS: NOREPINEPHRINE 8 MG/250ML KIT 250 ML IV SCH ×2 (08:36→18:30)
[2019-10-27] MEDS: MAGNESIUM SULFATE 1GM/100ML 100 ML IV SCH ×2 (08:44→10:38)
--- NOTE | 2019-10-27 09:26 | NUR ---
MD VISIT at bedside rounding. Orders obtained for Fentanyl drip for pain control.
[2019-10-27] MEDS: VANCOMYCIN 1GM/250ML 250 ML IV SCH (09:28)
--- NOTE | 2019-10-27 09:48 | NUR ---
SEDATION VACATION Patient awakes on current sedation when moved or any tactile stimuli applied. Patient not ready to wean at this time. aware.
--- NOTE | 2019-10-27 10:10 | NUR ---
PAGED Kelli Rivas paged regarding Microbiology results. Paging services stated he will not be available until after 1645.
[2019-10-27] MEDS: MEROPENEM 1GM IVPB 100 ML IV SCH ×2 (10:37→21:59)
[2019-10-27] MEDS: PANTOPRAZOLE 40 MG/10 ML VIAL INJ IV SCH ×2 (10:38→21:59)
--- NOTE | 2019-10-27 10:55 | NUR ---
Respiratory note: VENT RATE CHANGED FROM [address] KABA.
--- NOTE | 2019-10-27 12:09 | NUR ---
Nutrition Assessment Notes please see attached link for complete assessment Est. Energy Needs ABW 62 [id number] kcal (23-25 kcal/kg BW), Est. Protein Needs: 62-74 gms/day (1.0-1.2 gms/kg ABW r/t hypoalb).Will continue to monitor and reassess prn. Addendum: 10/27/19 at [address] Amended: Links added.
--- NOTE | 2019-10-27 13:47 | NUR ---
assessment Patient is a 79 year old female who is on a vent in ICU. Per patients daughter Alanis prior to admission patient lived home with her son and functioned with assistance of her SS caregiver. Patients son helps her at night. Patient has a fww for home use. Patients PCP is Dr Herrera Per Alanis patient was vomiting and family called 911. Patient was brought to ER and admitted. Patient has no POA or advanced directive. I informed Alanis that patients post discharge needs to be determined after extubation and prior to discharge. Alanis verbalized understanding. I Will continue to monitor and follow up as appropriate. Addendum: 10/27/19 at 1350 by Funmilayo COELLO Amended: Links added.
--- NOTE | 2019-10-27 13:51 | NUR ---
NOTIFIED Spoke with regarding MRSA nares results. Orders obtained.
[2019-10-27] MEDS: fentaNYL Drip 2500mCg/250mlNS 250 ML IV SCH (15:00)
[2019-10-27] MEDS ORDERED: FUROSEMIDE 100 MG/10ML VIAL IV ONE (18:15)
--- NOTE | 2019-10-27 18:17 | NUR ---
MD VISIT Dr.Patel johnston at bedside.
[2019-10-27 18:35] LABS: Potassium 3.9 mmol/L (3.5-5.1)
[2019-10-27 18:38] LABS: Magnesium 2.1 mg/dL (1.6-2.6)
[2019-10-27] MEDS ORDERED: POTASSIUM CHL 20MEQ/100ML 100 ML IV PRN (18:45)
[2019-10-27] MEDS ORDERED: MAGNESIUM SULFATE 1GM/100ML 100 ML IV PRN (18:45)
--- NOTE | 2019-10-27 18:46 | NUR ---
ORDERS wants to place patient on potassium and magnesium protocol. If potassium is less than 3.8, administer potassium rider 20 meq times two (40 meq total). If magnesium less than 2, administer two grams of magnesium rider. Orders placed.
--- NOTE | 2019-10-27 19:17 | NUR ---
REPORT Report given to Deysi NJ, care endorsed.
--- NOTE | 2019-10-27 20:00 | NUR ---
DECREASED BP PT BP 85/55. INCREASED PHENYLEPHRINE GTT PER PROTOCOL (SEE IV SPREADSHEET).
--- NOTE | 2019-10-27 20:00 | NUR ---
PEN ASSUMED CARE OF FEMALE PT ORALLY INTUBATED. PT SEDATED ON VERSED GTT 10 MG/HR AND FENTANYL GTT 50 MCG/HR. PT OPENS EYES DURING TURNING WITHDRAWS TO TACTILE STIMULI. OTHERWISE NON RESPONSIVE. SINUS RHYTHM ON SPA DIRECTOR. LEVOPHED GTT INFUSING AT 14MCG/MIN, PHENYLEPHRINE GTT AT 40 MCG MIN. D5 0.45 NS INFUSING AT 50ML/HR. PT WITH R. IJ TLC ALL PORTS PATENT. DRESSING CDI. TLC TO R. FEMORAL. ALL PORTS PATENT. DRESSING CDI. NGT TO L. NARE CLAMPED. PLACEMENT VERIFIED. ANDERSON TO GRAVITY DRAINING CLEAR YELLOW URINE. PALMIRA SCD'S IN PLACE. CIRCULAR SLOW TO SCOTT AREA OF REDNESS OBSERVED TO L. HEEL. PT WITH MALFORMED FINGERS AND THUMBS. HX OF ARTHRITIS. BED IN LOWEST LOCKED POSITION. PILLOWS USED TO OFFLOAD BONY PROMINENCES AND PALMIRA HEELS. HOB ELEVATED 30 DEGREES. ORAL CARE PROVIDED. PT IN FULL VIEW OF RN STATION. WILL CONTINUE TO MONITOR.
[2019-10-27] MEDS: MUPIROCIN 2% OINT 15gm or 22gm EACHNOSTRI SCH (21:59)
[2019-10-28] VITALS (97 sets, daily range): BP systolic 82–114; BP diastolic 42–60
[2019-10-28] MEDS: DOPamine 1600MCG/ML D5W 250 ML IV SCH ×2 (00:55→15:47)
[2019-10-28] MEDS: NOREPINEPHRINE 8 MG/250ML KIT 250 ML IV SCH ×2 (03:30→21:39)
[2019-10-28 04:30] LABS: Basophils # (auto) 0 10 ^3/uL (0-0.2); Basophils % (auto) 0.2 % (0.0-2.0); Eosinophils # (auto) 0.2 10 ^3/uL (0-0.8); Eosinophils % (auto) 3.7 % (0.0-7.0); Hematocrit 32.8 % (36.0-46.0); Hemoglobin 10.7 g/dL (12.2-16.2); Lymphocytes # (auto) 1.1 10 ^3/uL (0.4-5.4); Lymphocytes % (auto) 16.3 % (10.0-50.0); Mean Corpuscular Hemoglobin 25.9 pg (28.0-32.0); Mean Corpuscular Hgb Conc. 32.8 g/dL (32.0-36.0); Mean Corpuscular Volume 79.1 fL (80.0-100.0); Monocytes # (auto) 0.7 10 ^3/uL (0-1.3); Monocytes % (auto) 10.4 % (0.0-12.0); Neutrophils # (auto) 4.5 10 ^3/uL (1.6-8.6); Neutrophils % (auto) 69.4 % (37.0-80.0); Nucleated Red Blood Cells % 0.1 %; Platelet Count (auto) 79 10^3/uL (140-450); Red Blood Cells 4.14 10^6/uL (4.0-5.20); White Blood Cell 6.5 10^3/uL (4.4-10.8)
[2019-10-28 04:31] LABS: Red Cell Distribution Width 20.2 % (11.8-14.3)
[2019-10-28 04:42] LABS: Albumin 1.3 g/dL (3.4-5.0); Calcium 6.9 mg/dL (8.5-10.1); Potassium 3.4 mmol/L (3.5-5.1)
[2019-10-28 04:45] LABS: BUN/Creatinine Ratio 24.5; Bilirubin, Total 0.6 mg/dL (0.2-1.0); Total Protein 4.5 g/dL (6.4-8.2)
[2019-10-28] MEDS: PHENYLEPHRINE IV 250 ML IV SCH ×3 (04:58→23:53)
[2019-10-28] MEDS ORDERED: POTASSIUM CHL 20MEQ/100ML 200 ML IV ONE (05:41)
[2019-10-28] MEDS ORDERED: POTASSIUM CHL 20MEQ/100ML 100 ML IV PRN (05:45)
[2019-10-28] MEDS ORDERED: MAGNESIUM SULFATE 1GM/100ML 100 ML IV PRN (05:45)
[2019-10-28] MEDS: MIDAZOLAM DRIP 50 mg/50mL 50 ML IV SCH ×2 (05:57→23:55)
[2019-10-28] MEDS ORDERED: FUROSEMIDE 20 MG/2 ML VIAL IV SCH (06:00)
[2019-10-28] MEDS: D5W/SOD CHL 0.45% 1,000 ML IV SCH (06:30)
[2019-10-28] MEDS: MUPIROCIN 2% OINT 15gm or 22gm EACHNOSTRI SCH ×2 (09:54→22:10)
--- NOTE | 2019-10-28 09:59 | NUR ---
DR. Fabian DIALLO AT BEDSIDE: ORDERS MD UPDATED ON PT'S CURRENT STATUS, LABS AND POC FOR TODAY. ORDERS GIVEN AND TO BE CARRIED OUT. WILL CONTINUE TO MONITOR.
[2019-10-28] MEDS: PANTOPRAZOLE 40 MG/10 ML VIAL INJ IV SCH ×2 (10:03→22:11)
[2019-10-28] MEDS: MEROPENEM 1GM IVPB 100 ML IV SCH ×2 (10:03→22:10)
[2019-10-28] MEDS: fentaNYL Drip 2500mCg/250mlNS 250 ML IV SCH (13:31)
[2019-10-28] MEDS: VANCOMYCIN 1GM/250ML 250 ML IV SCH (13:32)
--- NOTE | 2019-10-28 13:45 | NUR ---
DR. Red WILKES CALLED: UPDATE NO SIGNS OF ACTIVE GI BLEEDING AT THIS TIME. UPDATED ON PT'S CURRENT POC. WILL CONTINUE CURRENT TX PLAN. CONTINUE CARE.
[2019-10-28] MEDS ORDERED: CLINIMIX PER PHARMACY 0 ML IV SCH (14:00)
--- NOTE | 2019-10-28 14:00 | NUR ---
DR. MACK AT BEDSIDE: UPDATE MD UPDATED ON PT'S CURRENT STATUS, LABS, CULTURES AND POC FOR TODAY. ORDERS GIVEN AND TO BE CARRIED OUT. CONTINUE CARE.
[2019-10-28 15:57] LABS: Phosphorus 2.4 mg/dL (2.5-4.90)
[2019-10-28] MEDS ORDERED: AMINO ACID INFUSION IN D5W 2,000 ML IV NR (20:00)
--- NOTE | 2019-10-28 20:00 | NUR ---
RECIEVED PT VENTILATED AND SEDATE, PT DOES GRIMACE SLIGHTLY, AFEBRILE , VS STABLE , ORAL CARE REPOSITIONED, SEE INTERVENTIONS FOR ASSESSMENT, VITAL SIGNS AND DRIPS
[2019-10-28] MEDS: InsuLIN REG 1unit/0.01ml Soln (100units/ml) SC SCH (23:59)
[2019-10-29] VITALS (102 sets, daily range): BP systolic 83–122; BP diastolic 39–66
[2019-10-29] MEDS ORDERED: DEXTROSE (50%) 50ML SYRG IV SCH
--- NOTE | 2019-10-29 03:30 | NUR ---
COMPLETE BATH AND LINEN CHANGE, OPTIFOAM APPLIED ON BUTTOCK, PT GRIMACES, EYES OPEN NOT TRACKING AT THIS TIME, REPOSITONED, AM LABS DRAWN, NO OTHER CHANGES
[2019-10-29 04:33] LABS: Albumin 1.4 g/dL (3.4-5.0); Calcium 7.1 mg/dL (8.5-10.1); Magnesium 1.9 mg/dL (1.6-2.6); Potassium 3.4 mmol/L (3.5-5.1)
[2019-10-29 04:39] LABS: BUN/Creatinine Ratio 30.8; Bilirubin, Total 0.9 mg/dL (0.2-1.0); Phosphorus 2.4 mg/dL (2.5-4.90); Pre Albumin 5.5 mg/dL (20.0-40.0); Total Protein 4.3 g/dL (6.4-8.2)
[2019-10-29] MEDS: VANCOMYCIN 1GM/250ML 250 ML IV SCH ×2 (05:00→21:03)
[2019-10-29] MEDS: InsuLIN REG 1unit/0.01ml Soln (100units/ml) SC SCH ×4 (06:00→23:50)
[2019-10-29] MEDS: ACCU-CHEK COMFORT CURVE STRIP VI SCH ×5 (06:00→23:50)
[2019-10-29] MEDS: fentaNYL Drip 2500mCg/250mlNS 250 ML IV SCH (09:26)
[2019-10-29] MEDS: DOPamine 1600MCG/ML D5W 250 ML IV SCH (09:35)
[2019-10-29] MEDS: MUPIROCIN 2% OINT 15gm or 22gm EACHNOSTRI SCH ×2 (09:48→22:20)
[2019-10-29] MEDS: MEROPENEM 1GM IVPB 100 ML IV SCH ×2 (09:49→22:19)
[2019-10-29] MEDS: PANTOPRAZOLE 40 MG/10 ML VIAL INJ IV SCH ×2 (09:52→22:20)
[2019-10-29] MEDS ORDERED: FUROSEMIDE 20 MG/2 ML VIAL IV SCH (10:00)
[2019-10-29] MEDS: D5W/SOD CHL 0.45% 1,000 ML IV SCH ×2 (10:15→19:36)
--- NOTE | 2019-10-29 11:28 | NUR ---
Nutrition Followup/consult Notes Wt: 91.3 kg Pt`s intubated sedated with no family by bedside. pt is currently NPO and will be initiated on PN support from marcio. pt with GI bleed. Est. Energy Needs ABW 62 [id number] kcal (23-25 kcal/kg BW), Est. Protein Needs: 62-74 gms/day (1.0-1.2 gms/kg ABW r/t hypoalb).Will continue to monitor and reassess prn. LABS: GLU 127 H, CA 7.1 L, ALB 1.4 L, TG 182 H, PREALB 5.5 L GI: Pt with no BM reported per RN doc. BS: 12 high risk. Please refer to wound assessment report for full details. PES: 1) Altered nutrition related lab values r.t current chronic medical condition aeb severe hypoalb hypocalcemia Impaired swallowing r.t current medical condition aeb pt`s intubated sedated with order of NPO Comments 1) advance diet as medically feasible. 2) consider PN support to meet > 75% of needs if pt continues to be npo. 3) continue current plan of care
[2019-10-29] MEDS: PHENYLEPHRINE IV 250 ML IV SCH ×2 (12:57→18:09)
[2019-10-29] MEDS ORDERED: POTASSIUM PHOSPHATE 22 MEQ in SODIUM CHL 0.9% 100 ML IV ONE (13:00)
[2019-10-29] MEDS: MAGNESIUM SULFATE 1GM/100ML 100 ML IV SCH ×2 (13:07→14:20)
[2019-10-29] MEDS: POTASSIUM CHL 20MEQ/100ML 100 ML IV SCH ×2 (13:19→14:20)
--- NOTE | 2019-10-29 15:02 | NUR ---
Resumed care at 0725, orders reviewed and ongoing assessments being done. Being treated for multiple problems and remains intubated and sedated. Remains on sedation for comfort with Versed and FentaNLY. Continues to facial grimace when rendering care and at times appears to try to open eyes when spoken to. Dr. Herrera rounded at 1004 and discussed condition and plan of care. Remains on Levophed and Phenylephrine for BP support. Continue to titrate as appropriate. Dr. Herrera stated that he tried to contact daughter Otilia and left her a message. Remains with low grade temperature. Measuring with rectal probe. Utilizing ice packs and cool compress on forehead. Temperature at this time 99.9.
[2019-10-29] MEDS: MIDAZOLAM DRIP 50 mg/50mL 50 ML IV SCH (15:10)
[2019-10-29] MEDS: NOREPINEPHRINE 8 MG/250ML KIT 250 ML IV SCH (16:40)
[2019-10-29] MEDS ORDERED: AMINO ACID INFUSION IN D5W 2,000 ML IV NR (20:00)
--- NOTE | 2019-10-29 20:00 | NUR ---
SEDATION VACATION PATIENT IS ON DEEP SEDATION. VERSED TURNED OFF TO CHECK PATIENT'S NEURO STATUS.
[2019-10-29] MEDS: FUROSEMIDE 20 MG/2 ML VIAL IV SCH (22:19)
[2019-10-30] VITALS (104 sets, daily range): BP systolic 83–128; BP diastolic 34–61
--- NOTE | 2019-10-30 | NUR ---
SEDATION PATIENT IS ON MODERATE SEDATION. FENTANYL 100MCG/HR INFUSING. VERSED DIDN'T RESTART. WILL MONITOR PATIENT'S SEDATION STATUS
[2019-10-30] MEDS: DOPamine 1600MCG/ML D5W 250 ML IV SCH ×2 (01:55→16:58)
[2019-10-30] MEDS: NOREPINEPHRINE 8 MG/250ML KIT 250 ML IV SCH ×2 (02:35→12:55)
[2019-10-30 05:34] LABS: Albumin 1.4 g/dL (3.4-5.0); Calcium 7.4 mg/dL (8.5-10.1); Potassium 3.6 mmol/L (3.5-5.1)
[2019-10-30 05:38] LABS: BUN/Creatinine Ratio 26.1; Phosphorus 2.7 mg/dL (2.5-4.90); Total Protein 4.4 g/dL (6.4-8.2)
[2019-10-30] MEDS: ACCU-CHEK COMFORT CURVE STRIP VI SCH ×3 (05:38→18:08)
[2019-10-30] MEDS: PHENYLEPHRINE IV 250 ML IV SCH ×3 (05:48→22:28)
[2019-10-30] MEDS: InsuLIN REG 1unit/0.01ml Soln (100units/ml) SC SCH ×3 (05:55→18:10)
[2019-10-30] MEDS: fentaNYL Drip 2500mCg/250mlNS 250 ML IV SCH (05:58)
--- NOTE | 2019-10-30 06:00 | NUR ---
NEURO STATUS PATIENT OPEN EYES TO TOUCH, WITHDRAWS TO PAINFUL STIMULI, AND DOESN'T FOLLOW COMMANDS. FENTANYL 100MCG/HR INFUSING. VERSED DIDN'T RESTART.
--- NOTE | 2019-10-30 07:45 | NUR ---
INITIAL CONTACT REPORT RECEIVED FROM MIC NJ, CARE ASSUMED. FEMALE PT ORALLY INTUBATED, SEDATED ON FENTANYL GTT. PT GRIMACES AND WITHDRAWS TO TACTILE STIMULI. AFEBRILE. SINUS RHYTHM 80'S ON COUNTY COMMISSIONER. PULSES PALPABLE RADIAL AND PEDAL BILATERALLY. PITTING EDEMA PRESENT ON ALL EXTREMITIES. LEVOPHED GTT INFUSING AT 12MCG/MIN. D5 0.45 NS INFUSING AT 30 ML/HR. PT WITH R. IJ TLC ALL PORTS PATENT. DRESSING CDI. TLC TO RIGHT FEMORAL. ALL PORTS PATENT. DRESSING CDI. NGT TO LEFT NARE CLAMPED. ANDERSON TO GRAVITY DRAINING CLEAR YELLOW URINE. BILATERAL SCD'S IN PLACE. SEE SKIN/WOUND ASSESSMENT. BED IN LOWEST LOCKED POSITION. PILLOWS USED TO OFFLOAD BONY PROMINENCES AND BILATERAL HEELS. HOB ELEVATED 30 DEGREES. ORAL CARE PROVIDED. ALARMS IN PLACE. WILL CONTINUE TO MONITOR.
--- NOTE | 2019-10-30 10:30 | NUR ---
MD VISIT at bedside assessing patient. Orders obtained for Cpap trial tomorrow.
[2019-10-30] MEDS: PANTOPRAZOLE 40 MG/10 ML VIAL INJ IV SCH ×2 (10:32→22:05)
[2019-10-30] MEDS: MEROPENEM 1GM IVPB 100 ML IV SCH ×2 (10:32→23:30)
[2019-10-30] MEDS: MUPIROCIN 2% OINT 15gm or 22gm EACHNOSTRI SCH ×2 (10:32→22:05)
[2019-10-30] MEDS: FUROSEMIDE 20 MG/2 ML VIAL IV SCH ×2 (10:32→22:05)
--- NOTE | 2019-10-30 10:47 | NUR ---
VENT CHANGES ORDERED BY DR KABA. PT NOW ON SETTINGS: SIMV, RR 12, VT 550, PEEP +5, PS 8, FIO2 30%. CHANGES MADE WITHOUT INCIDENT. PER MD, PLAN TO WEAN/CPAP TRIAL TOMORROW, WILL ENDORSE TO ONCOMING RT.
[2019-10-30] MEDS: VANCOMYCIN 1GM/250ML 250 ML IV SCH ×2 (12:56→21:30)
--- NOTE | 2019-10-30 16:18 | NUR ---
CARES Partial linen change complete. Skin reassessment performed. Skin intact. Oral care complete. Patient repositioned on side. Bed locked in lowest position, alarms in place. Will continue to monitor.
--- NOTE | 2019-10-30 19:18 | NUR ---
REPORT Repot given to Ariana NJ care endorsed.
--- NOTE | 2019-10-30 19:30 | NUR ---
REPORT RECEIVED AND ASSUMED CARE; SEE INTERVENTIONS FOR ASSESSMENT; SEE IV SPREADSHEET FOR GTTS; VS STABLE AT THIS TIME; WILL CONT. TO MONITOR.
[2019-10-30] MEDS ORDERED: AMINO ACID INFUSION IN D5W 2,000 ML IV NR (20:00)
[2019-10-31] VITALS (101 sets, daily range): BP systolic 93–145; BP diastolic 38–72
[2019-10-31] MEDS: InsuLIN REG 1unit/0.01ml Soln (100units/ml) SC SCH ×4 (01:30→18:00)
[2019-10-31] MEDS: ACCU-CHEK COMFORT CURVE STRIP VI SCH ×4 (01:30→18:00)
[2019-10-31 04:41] LABS: Basophils # (auto) 0 10 ^3/uL (0-0.2); Basophils % (auto) 0.2 % (0.0-2.0); Eosinophils # (auto) 0.3 10 ^3/uL (0-0.8); Lymphocytes # (auto) 0.8 10 ^3/uL (0.4-5.4); Mean Corpuscular Volume 78.9 fL (80.0-100.0); Monocytes # (auto) 0.5 10 ^3/uL (0-1.3); Monocytes % (auto) 9.3 % (0.0-12.0); Neutrophils # (auto) 3.4 10 ^3/uL (1.6-8.6)
[2019-10-31 04:45] LABS: Eosinophils % (auto) 6.8 % (0.0-7.0); Hematocrit 29.3 % (36.0-46.0); Hemoglobin 9.7 g/dL (12.2-16.2); Lymphocytes % (auto) 16.7 % (10.0-50.0); Mean Corpuscular Hemoglobin 26.2 pg (28.0-32.0); Mean Corpuscular Hgb Conc. 33.2 g/dL (32.0-36.0); Nucleated Red Blood Cells % 0.4 %; Platelet Count (auto) 144 10^3/uL (140-450); Red Blood Cells 3.71 10^6/uL (4.0-5.20); Red Cell Distribution Width 19.8 % (11.8-14.3)
[2019-10-31 04:59] LABS: Potassium 3.3 mmol/L (3.5-5.1)
[2019-10-31 05:06] LABS: Albumin 1.3 g/dL (3.4-5.0); BUN/Creatinine Ratio 27.9; Bilirubin, Total 1.1 mg/dL (0.2-1.0); Calcium 7.7 mg/dL (8.5-10.1); Magnesium 1.8 mg/dL (1.6-2.6); Phosphorus 2.4 mg/dL (2.5-4.90); Total Protein 4.2 g/dL (6.4-8.2)
--- NOTE | 2019-10-31 07:35 | NUR ---
INITIAL CONTACT REPORT RECEIVED FROM SUHAIL NJ, CARE ASSUMED. FEMALE PT ORALLY INTUBATED, SEDATED ON FENTANYL GTT. PT GRIMACES, OPENS EYES, AND WITHDRAWS TO TACTILE STIMULI. DOES NOT FOLLOW COMMANDS AT THIS TIME. AFEBRILE. SINUS RHYTHM ON INSURANCE ADJUSTER. PULSES PALPABLE RADIAL AND PEDAL BILATERALLY. PITTING EDEMA PRESENT ON ALL EXTREMITIES. LEVOPHED GTT INFUSING AT 12 MCG/MIN. D5 0.45 NS INFUSING AT 30 ML/HR. PT WITH R. IJ TLC ALL PORTS PATENT. DRESSING CDI. TLC TO RIGHT FEMORAL. ALL PORTS PATENT. DRESSING CDI. NGT TO LEFT NARE CLAMPED. ANDERSON TO GRAVITY DRAINING CLEAR YELLOW URINE. BILATERAL SCD'S IN PLACE. SEE SKIN/WOUND ASSESSMENT. BED IN LOWEST LOCKED POSITION. PILLOWS USED TO OFFLOAD BONY PROMINENCES AND BILATERAL HEELS. HOB ELEVATED 30 DEGREES. ORAL CARE PROVIDED. ALARMS IN PLACE. WILL CONTINUE TO MONITOR.
[2019-10-31] MEDS: VANCOMYCIN 1GM/250ML 250 ML IV SCH ×2 (07:46→22:08)
[2019-10-31] MEDS: PHENYLEPHRINE IV 250 ML IV SCH ×2 (09:00→11:47)
--- NOTE | 2019-10-31 09:00 | NUR ---
SEDATION FENTANYL TITRATED OFF FOR CPAP TRIAL ATTEMPT PER MD ORDER.
[2019-10-31] MEDS: fentaNYL Drip 2500mCg/250mlNS 250 ML IV SCH (09:26)
[2019-10-31] MEDS: MEROPENEM 1GM IVPB 100 ML IV SCH ×2 (09:59→22:08)
[2019-10-31] MEDS: FUROSEMIDE 20 MG/2 ML VIAL IV SCH ×2 (10:00→22:08)
[2019-10-31] MEDS: PANTOPRAZOLE 40 MG/10 ML VIAL INJ IV SCH ×2 (10:00→22:09)
--- NOTE | 2019-10-31 10:28 | NUR ---
SEDATION VACATION PATIENT TOLERATING VENTILATION. SEDATION TITRATING OFF. PATIENT TOO DROWSY. WILL ATTEMPT CPAP TRIAL WHEN PATIENT ABLE TO STAY AWAKE AND ALERT. ALL OTHER VSS AT THIS TIME.
[2019-10-31] MEDS: DOPamine 1600MCG/ML D5W 250 ML IV SCH (10:35)
--- NOTE | 2019-10-31 11:00 | NUR ---
AM ORDER REVIEWED FOR CPAP. PT OFF SEDATION AND IS AROUSABLE, FOLLOWS COMMANDS, BUT IS DROWSY. WILL CONTINUE TO MONITOR PT FOR POSSIBLE CPAP TRIAL TODAY.
[2019-10-31] MEDS: D5W/SOD CHL 0.45% 1,000 ML IV SCH ×2 (11:46→22:14)
[2019-10-31] MEDS: MUPIROCIN 2% OINT 15gm or 22gm EACHNOSTRI SCH ×2 (11:46→22:08)
[2019-10-31] MEDS ORDERED: POTASSIUM PHOSP 22MEQ(15MMOLE) in NS 100 ML IV ONE (13:00)
--- NOTE | 2019-10-31 13:00 | NUR ---
ROUNDING NOTE PATIENT OBSERVED RESTING AT THIS TIME. SEDATION OFF, PT NOT OPENING EYES OR FOLLOWING COMMANDS. CPAP TRIAL WHEN AWAKE. ALL VITAL SIGNS REMAIN STABLE AT THIS TIME. WILL CONTINUE TO MONITOR.
[2019-10-31] MEDS: MIDAZOLAM DRIP 50 mg/50mL 50 ML IV SCH (14:47)
[2019-10-31] MEDS: NOREPINEPHRINE 8 MG/250ML KIT 250 ML IV SCH ×2 (15:15→19:33)
--- NOTE | 2019-10-31 15:30 | NUR ---
CARES Partial linen change complete. Skin reassessment performed. Skin intact. Oral care complete. Patient repositioned on side. Bed locked in lowest position, alarms in place. Patient not opening eyes, but does facial grimacing with any movement. Will continue to monitor.
--- NOTE | 2019-10-31 16:06 | NUR ---
Nutrition Followup Notes Wt: 91.0 kg Pt`s intubated sedated with no family by bedside. pt is currently NPO since 10/25, with Amino Acid PN support running @ 42 ml/hr . Pt with GI bleed and hypoactive bowel sounds. Est. Energy Needs ABW 62 [id number] kcal (23-25 kcal/kg BW), Est. Protein Needs: 62-74 gms/day (1.0-1.2 gms/kg ABW r/t hypoalb).Will continue to monitor and reassess prn. LABS: GLU 125 H, CA 7.1 L, ALB 1.3 L, POT 3.3 L GI: Pt with no BM reported per RN doc. BS: 12 high risk. Please refer to wound assessment report for full details. PES: 1) Altered nutrition related lab values r.t current chronic medical condition aeb severe hypoalb hypocalcemia Impaired swallowing r.t current medical condition aeb pt`s intubated sedated with order of NPO Comments 1) advance diet as medically feasible. 2) consider PN support to meet > 75% of needs if pt continues to be npo. 3) continue current plan of care
--- NOTE | 2019-10-31 19:47 | NUR ---
REPORT REPORT GIVEN TO SUHAIL NJ, CARE ENDORSED.
[2019-10-31] MEDS ORDERED: CLINIMIX PER PHARMACY IV NR (20:00)
[2019-11-01] VITALS (100 sets, daily range): BP systolic 82–145; BP diastolic 40–85
[2019-11-01 04:48] LABS: Potassium 3.1 mmol/L (3.5-5.1)
[2019-11-01 04:55] LABS: Albumin 1.4 g/dL (3.4-5.0); BUN/Creatinine Ratio 39.5; Bilirubin, Total 0.9 mg/dL (0.2-1.0); Calcium 7.8 mg/dL (8.5-10.1); Magnesium 1.8 mg/dL (1.6-2.6); Total Protein 4.7 g/dL (6.4-8.2)
[2019-11-01 05:08] LABS: Phosphorus 2.6 mg/dL (2.5-4.90)
[2019-11-01] MEDS: ACCU-CHEK COMFORT CURVE STRIP VI SCH ×3 (06:00→18:25)
[2019-11-01] MEDS: InsuLIN REG 1unit/0.01ml Soln (100units/ml) SC SCH ×3 (06:00→18:00)
--- NOTE | 2019-11-01 07:32 | NUR ---
Opening Shift Note Assumed care of patient, sedated and intubated. ET tube is size 8 and 22 cm from lip. Patient is on SIMV. Ventilation orders match MD orders. IVs infusing per MD order. Rhythm is sinus with occasional PVCs. No S/S of distress/SOB or pain. Bed is in lowest position and locked. Call light within reach. Board updated. Instructed on POC and to call for assist PRN, will continue to monitor for changes Q1hr and PRN.
[2019-11-01] MEDS: VANCOMYCIN 1GM/250ML 250 ML IV SCH ×2 (08:56→20:30)
[2019-11-01] MEDS: PHENYLEPHRINE IV 250 ML IV SCH ×2 (09:00→16:08)
[2019-11-01] MEDS: DOPamine 1600MCG/ML D5W 250 ML IV SCH ×2 (09:00→19:15)
--- NOTE | 2019-11-01 09:00 | NUR ---
Patient is not on any sedation currently. Patient is arousable to light pain stimuli and shaking. Addendum: 11/01/19 at 1046 by JUDD MENDOZA RN Amended: Links added.
[2019-11-01] MEDS: MUPIROCIN 2% OINT 15gm or 22gm EACHNOSTRI SCH (09:07)
[2019-11-01] MEDS: FUROSEMIDE 20 MG/2 ML VIAL IV SCH ×2 (09:07→21:52)
[2019-11-01] MEDS: PANTOPRAZOLE 40 MG/10 ML VIAL INJ IV SCH ×2 (09:07→21:52)
[2019-11-01] MEDS: MEROPENEM 1GM IVPB 100 ML IV SCH ×2 (09:07→21:52)
[2019-11-01] MEDS: fentaNYL Drip 2500mCg/250mlNS 250 ML IV SCH (09:26)
--- NOTE | 2019-11-01 11:08 | NUR ---
Spoke to MD Herrera and notified him that patient's potassium has been trending downward and most current potassium level, which is currently 3.1. Previous potassium level was 3.3. Patient is receiving Lasix. Orders received: 1) BMP for tomorrow AM, 2) CBC for tomorrow AM, 3) Potassium Chloride Boom 20 mEq IV x 3 for a total of 60 mEq, 4) Communication order: "Per MD Herrera, please give Potassium Chloride Boom 20 mEq IV x 2 if potassium serum level drops below 3.6."
[2019-11-01] MEDS: POTASSIUM CHL 20MEQ/100ML 100 ML IV SCH ×3 (12:29→14:50)
--- NOTE | 2019-11-01 12:30 | NUR ---
WOUND CARE NOTE: IN TO SEE PATIENT FOR SKIN INTEGRITY AT THIS TIME. PATIENT CONTINUES TO BE INTUBATED, SEDATED. SHE IS WOUND FREE AT THIS TIME. PATIENT DOES HAVE GENERALIZED EDEMA, ESPECIALLY TO BLE. BOTH LEGS ELEVATED UP ONTO PILLOWS FOR EDEMA CONTROL. REPOSITIONED PATIENT ONTO LEFT SIDE, REDISTRIBUTING PRESSURE POINTS WITH PILLOWS. SKIN/WOUND CARE PLAN UPDATED. RECOMMEND: CONTINUATION WITH ALL WOUND CARE ORDERS PREVIOUSLY PRESCRIBED BY MD. WOUND CARE TEAM WILL CONTINUE TO MONITOR.
--- NOTE | 2019-11-01 12:30 | NUR ---
WOUND CARE Wound care nurse Zuleyka NJ at bedside to assess skin. Patient tolerated well.
--- NOTE | 2019-11-01 12:32 | NUR ---
Performed Accucheck as scheduled at 1200. Blood glucose level is 112. Medication had already been non-adminstered by another RN so I can not document it. No insulin needed. Will continue to monitor.
[2019-11-01] MEDS ORDERED: POTASSIUM CHL 20MEQ/100ML 100 ML IV SCH (13:15)
[2019-11-01] MEDS: MIDAZOLAM DRIP 50 mg/50mL 50 ML IV SCH (14:47)
--- NOTE | 2019-11-01 15:10 | NUR ---
Respiratory note: PER DR. KABA PT PLACED ON CPAP TRIAL. PT NOT FOLLOWING COMMANDS BUT ALL SEDATION IS OFF. CPAP 5, PSV 8 AND FI02 30%. WILL MONIOTR PT CLOSELY. PT TOLERATING WELL.
--- NOTE | 2019-11-01 16:37 | NUR ---
Respiratory note: PT ABG RESULTS ON CPAP TRIAL FOR [address] KABA. MESSAGE LEFT. PT COULD NOT DO NIF, VC. PT WOULD BLINK FOR ME.
--- NOTE | 2019-11-01 16:48 | NUR ---
Respiratory note: DR. KABA CALLED BACK. ORDERS TO KEEP PT ON CPAP LONG PT IS COMFORTABLE. DO WEANING PARAMETERS IN 3-4 HOURS.
--- NOTE | 2019-11-01 19:09 | NUR ---
Respiratory note: ATTEMPTED TO OBTAIN WEANING PARAMETERS, PT DOES NOT OPEN EYES OR FOLLOW COMMANDS. WAS ABLE TO OBTAIN A MIP OF -20.4 FROM PT'S SPONTANEOUS EFFORT WITHOUT FOLLOWING COACHING INSTRUCTIONS, VITAL CAPACITY OF 347mL OBTAINED IN THE SAME MANNER. PT SUCTIONED FOR LARGE THICK PRIETO/CLEAR SECRETIONS X3. GAG REFLEX NOTED, PT ABLE TO COUGH UP SECRETIONS INTO ET TUBE. WILL CALL DR. KABA WITH PARAMETERS AND PT UPDATE, RN AWARE.
--- NOTE | 2019-11-01 19:13 | NUR ---
Closing note Patient still sedated, but does not appear to be in distress. Patient is currently on CPAP. Care endorsed to Deysi.
--- NOTE | 2019-11-01 19:37 | NUR ---
Respiratory note: DR. KABA NOTIFIED OF CPAP PARAMETERS. ORDERED TO PLACE PT BACK ON SIMV SETTINGS FOR TONIGHT, REPEAT CPAP AGAIN TOMORROW. WILL NOTIFY RN AND CONTINUE TO MONITOR PT.
[2019-11-01] MEDS ORDERED: CLINIMIX PER PHARMACY IV NR (20:00)
--- NOTE | 2019-11-01 20:00 | NUR ---
OPEN ASSUMED CARE OF FEMALE PT ORALLY INTUBATED. PT GRIMACES AND WITHDRAWS TO TACTILE STIMULI. OTHERWISE NON RESPONSIVE. SINUS TACH ON DIRECTOR OF ANALYTICS. D5 0.45 NS INFUSING AT 30 ML/HR. PT WITH R. IJ TLC ALL PORTS PATENT. DRESSING CDI. TLC TO R. FEMORAL. ALL PORTS PATENT. DRESSING CDI. NGT TO L. NARE CLAMPED. PLACEMENT VERIFIED. ANDERSON TO GRAVITY DRAINING CLEAR LIGHT GERALD URINE. PALMIRA SCD'S IN PLACE. NO SKIN BREAKDOWN OBSERVED. PT WITH MALFORMED FINGERS AND THUMBS. HX OF ARTHRITIS. BED IN LOWEST LOCKED POSITION. PILLOWS USED TO OFFLOAD BONY PROMINENCES AND PALMIRA HEELS. HOB ELEVATED 30 DEGREES. ORAL CARE PROVIDED. PT IN FULL VIEW OF RN STATION. WILL CONTINUE TO MONITOR.
--- NOTE | 2019-11-01 20:25 | NUR ---
RN MADE AWARE OF SMALL SORE ON PT'S LOWER LIP, IN THE CENTER RIGHT LOCATION. ET TUBE POSITIONED TO NOT REST ON SORE, WILL CONTINUE TO MONITOR.
[2019-11-02] VITALS (47 sets, daily range): BP systolic 100–166; BP diastolic 45–88
[2019-11-02] MEDS: PHENYLEPHRINE IV 250 ML IV SCH ×3 (00:28→17:08)
[2019-11-02] MEDS: InsuLIN REG 1unit/0.01ml Soln (100units/ml) SC SCH ×4 (00:40→23:52)
[2019-11-02] MEDS: ACCU-CHEK COMFORT CURVE STRIP VI SCH ×4 (00:40→23:52)
--- NOTE | 2019-11-02 03:00 | NUR ---
Patient bathe/linen change Patient given complete bath. Skin integrity assessed for any changes. Linens changed. Patient repositioned for comfort. NEW OPTIFOAM GENTLE SACRAL DRESSING PLACED TO INTACT SKIN OF SACRUM/COCCYX PREVENTATIVE.
--- NOTE | 2019-11-02 03:30 | NUR ---
NEURO/ TEACHING LUXEMBOURGER SPEAKING RN ASSIST WITH INTERPRETING. PT OPENED EYES TO COMMAND SPOKEN IN LUXEMBOURGER. PT TRACKING RN. PT ATTEMPTING TO SPEAK AROUND ETT. ORIENTED PT REGARDING HOSPITALIZATION AND PLAN TO CPAP IN AM.
[2019-11-02] MEDS: D5W/SOD CHL 0.45% 1,000 ML IV SCH ×2 (03:52→21:07)
[2019-11-02 04:53] LABS: BUN/Creatinine Ratio 39.5; Calcium 8.3 mg/dL (8.5-10.1); Potassium 3.7 mmol/L (3.5-5.1)
[2019-11-02 04:55] LABS: Basophils # (auto) 0 10 ^3/uL (0-0.2); Basophils % (auto) 0.4 % (0.0-2.0); Eosinophils # (auto) 0.2 10 ^3/uL (0-0.8); Eosinophils % (auto) 3.8 % (0.0-7.0); Hematocrit 28.7 % (36.0-46.0); Hemoglobin 9.4 g/dL (12.2-16.2); Lymphocytes # (auto) 0.9 10 ^3/uL (0.4-5.4); Lymphocytes % (auto) 17.1 % (10.0-50.0); Mean Corpuscular Hemoglobin 26.2 pg (28.0-32.0); Mean Corpuscular Hgb Conc. 32.8 g/dL (32.0-36.0); Mean Corpuscular Volume 79.8 fL (80.0-100.0); Monocytes # (auto) 0.4 10 ^3/uL (0-1.3); Monocytes % (auto) 8.4 % (0.0-12.0); Neutrophils # (auto) 3.5 10 ^3/uL (1.6-8.6); Neutrophils % (auto) 70.3 % (37.0-80.0); Platelet Count (auto) 142 10^3/uL (140-450); Red Blood Cells 3.59 10^6/uL (4.0-5.20); Red Cell Distribution Width 19.8 % (11.8-14.3)
[2019-11-02] MEDS: VANCOMYCIN 1GM/250ML 250 ML IV SCH ×2 (08:00→20:22)
[2019-11-02] MEDS: fentaNYL Drip 2500mCg/250mlNS 250 ML IV SCH ×2 (09:26→23:13)
[2019-11-02] MEDS: FUROSEMIDE 20 MG/2 ML VIAL IV SCH ×2 (09:53→21:45)
[2019-11-02] MEDS: PANTOPRAZOLE 40 MG/10 ML VIAL INJ IV SCH ×2 (09:53→21:45)
[2019-11-02] MEDS: MEROPENEM 1GM IVPB 100 ML IV SCH ×2 (10:00→21:45)
--- NOTE | 2019-11-02 10:55 | NUR ---
PT PLACED ON CPAP TRIAL. PT AWAKE BUT NOT FOLLOWING COMMANDS.
--- NOTE | 2019-11-02 10:55 | NUR ---
RESPIRATORY RT Ana Lilia at bedside changed ventilator mode to CPAP, patient tolerating well at this time sating 100% but does not fully wake up and follow commands.
[2019-11-02] MEDS: DOPamine 1600MCG/ML D5W 250 ML IV SCH (11:35)
--- NOTE | 2019-11-02 11:44 | NUR ---
Nutrition Followup Notes Wt: 89.4 kg Pt`s intubated on CPAP when rounded this am per RN. pt is currently NPO with PN support @ 42 ml/hr proding 240 kcals and 42.5 gm proteins. pt with inadequate PN support Est. Energy Needs ABW 62 [id number] kcal (23-25 kcal/kg BW), Est. Protein Needs: 62-74 gms/day (1.0-1.2 gms/kg ABW r/t hypoalb).Will continue to monitor and reassess prn. LABS: CO2 34 H, CA 8.3 L ALB 1.4 L. GI: Pt with no BM reported per RN doc. BS: 12 high risk. Please refer to wound assessment report for full details. PES: 1) Altered nutrition related lab values r.t current chronic medical condition aeb severe hypoalb hypocalcemia Impaired swallowing r.t current medical condition aeb pt`s intubated sedated with order of NPO Comments 1) advance diet as medically feasible. 2) consider PN support to meet > 75% of needs if pt continues to be npo. 3) continue current plan of care
--- NOTE | 2019-11-02 14:17 | NUR ---
PAGED DR. KABA REGARDING PT'S ABG RESULTS ON CPAP TRIAL.
[2019-11-02] MEDS: MIDAZOLAM DRIP 50 mg/50mL 50 ML IV SCH (14:47)
--- NOTE | 2019-11-02 14:55 | NUR ---
RESPIRATORY RT Ana Lilia at bedside and placed patient on SIMV of 6, Tidal Volume of 550, FIO2 30% and peep of 5. Patient sating 100% tolerating well. Will continue to monitor patient closely.
[2019-11-02] MEDS: NOREPINEPHRINE 8 MG/250ML KIT 250 ML IV SCH (15:15)
--- NOTE | 2019-11-02 19:07 | NUR ---
RT NOTE RECEIVED PT INTUBATED AND ON VENT ADQ 0236 ON STATED SETTINGS. VENT IS PLUGGED TO RED OUTLET. ALARMS ARE ON AND AUDIBLE TO NURSING. AMBU BAG AT BEDSIDE AND CONNECTED TO O2 SOURCE. 8.0 ETT SECURED WITH ANCHORFAST AT 22 CM TO THE ORAL LEFT. BS ARE COARSE. PT WAS SUCTIONED FOR SMALL CLEAR/WHITE RETURN FROM ETT AND LARGE RETURN ORALLY. CONT ORDERED. POX 99, PT TEMP 99.3 Addendum: 11/02/19 at 1914 by Yue Guerin RT Amended: Links added.
[2019-11-02] MEDS ORDERED: CLINIMIX PER PHARMACY IV NR (20:00)
--- NOTE | 2019-11-02 20:15 | NUR ---
OPENING NOTE: INTUBATED AND OFF SEDATION. OPENS EYES. MOVES ALL EXTREMITIES BUT VERY WEAK. INTERMITTENTLY FOLLOWS COMMANDS. ATTEMPTING TO SPEAK OVER ETT. HITTING BED WITH HANDS. NSR-SINUS TACH, HR 90-110s. SBP 110-150s. 8.0 ETT, 22 AT THE LIP. SpO2>95% ON CURRENT VENT SETTINGS. LS CTA, EVEN AND UNLABORED BREATHING. MODERATE THICK ETT SECRETIONS. DOES NOT ALLOW GAME BIRD FARMER TO PERFORM ORAL CARE. ABD SOFT. HYPOACTIVE BS. UNKNOWN LBM. ANDERSON INTACT, DRAINING GERALD URINE. SKIN GROSSLY INTACT. RIGHT FEMORAL AND RIGHT IJ TLC, CDI, AND PATENT WITH BLOOD RETURN. DENIES PAIN AT THIS TIME. REINFORCED POC. MAINTAINED PATIENT SAFETY: BED LOCKED AND IN THE LOWEST POSITION, FREQUENT VISUAL CHECKS, BED ALARM ON. SOFT MITTENS ON FOR SAFETY.
--- NOTE | 2019-11-02 20:17 | NUR ---
RT NOTE ROUTINE VENT CHECK DONE. PT INTUBATED AND ON VENT ADQ 0236 ON STATED SETTINGS. VENT IS PLUGGED TO RED OUTLET. ALARMS ARE ON AND AUDIBLE TO NURSING. AMBU BAG AT BEDSIDE AND CONNECTED TO O2 SOURCE. 8.0 ETT SECURED WITH ANCHORFAST AT 22 CM TO THE ORAL LEFT. CONT ORDERED. POX 100%, PT TEMP 99.3 Addendum: 11/02/19 at 2020 by Yue Guerin RT Amended: Links added.
--- NOTE | 2019-11-02 22:01 | NUR ---
RT NOTE ROUTINE VENT CHECK DONE. PT INTUBATED AND ON VENT ADQ 0236 ON STATED SETTINGS. VENT IS PLUGGED TO RED OUTLET. ALARMS ARE ON AND AUDIBLE TO NURSING. AMBU BAG AT BEDSIDE AND CONNECTED TO O2 SOURCE. 8.0 ETT SECURED WITH ANCHORFAST AT 22 CM TO THE ORAL LEFT. BS ARE COARSE THROUGHOUT. PT WAS SUCTIONED FOR LARGE RETURN. CONT ORDERED. POX 100%, PT TEMP 99.3 Addendum: 11/02/19 at 2207 by Yue Guerin RT Amended: Links added.
--- NOTE | 2019-11-02 22:14 | NUR ---
RT NOTE ETT MOVED TO THE ORAL CENTER Addendum: 11/02/19 at 2214 by Yue Guerin RT Amended: Links added.
--- NOTE | 2019-11-02 23:13 | NUR ---
AGITATED - STARTED ON FENTANYL GTT PATIENT TACHYCARDIC, TACHYPNIC, HYPERTENSIVE, ATTEMPTING TO SPEAK OVER THE ETT, BANGING ARMS AGAINST THE BED. UNABLE TO REDIRECT. SOFT MITTENS ON FOR SAFETY.
[2019-11-03] VITALS (66 sets, daily range): BP systolic 92–172; BP diastolic 49–100
--- NOTE | 2019-11-03 | NUR ---
REMAINS AGITATED/RESTLESS
--- NOTE | 2019-11-03 00:07 | NUR ---
RT NOTE ROUTINE VENT CHECK DONE. PT INTUBATED AND ON VENT ADQ 0236 ON STATED SETTINGS. VENT IS PLUGGED TO RED OUTLET. ALARMS ARE ON AND AUDIBLE TO NURSING. AMBU BAG AT BEDSIDE AND CONNECTED TO O2 SOURCE. 8.0 ETT SECURED WITH ANCHORFAST AT 22 CM TO THE ORAL CENTER. CONT ORDERED. POX 98%, PT TEMP 99.7 Addendum: 11/03/19 at 0010 by Yue Guerin RT Amended: Links added.
--- NOTE | 2019-11-03 00:54 | NUR ---
INCREASED ECTOPY - AM LABS DRAWN AND SENT
[2019-11-03 01:26] LABS: Albumin 1.9 g/dL (3.4-5.0); BUN/Creatinine Ratio 38.3; Calcium 8.5 mg/dL (8.5-10.1); Magnesium 1.8 mg/dL (1.6-2.6); Potassium 3.1 mmol/L (3.5-5.1)
[2019-11-03 01:28] LABS: Basophils # (auto) 0 10 ^3/uL (0-0.2); Basophils % (auto) 0.3 % (0.0-2.0); Eosinophils # (auto) 0.2 10 ^3/uL (0-0.8); Monocytes # (auto) 0.6 10 ^3/uL (0-1.3); Platelet Count (auto) 147 10^3/uL (140-450)
[2019-11-03] MEDS: PHENYLEPHRINE IV 250 ML IV SCH ×3 (01:28→18:08)
[2019-11-03 01:29] LABS: Bilirubin, Total 0.9 mg/dL (0.2-1.0); Eosinophils % (auto) 3.8 % (0.0-7.0); Hematocrit 27.8 % (36.0-46.0); Hemoglobin 9.3 g/dL (12.2-16.2); Lymphocytes # (auto) 0.9 10 ^3/uL (0.4-5.4); Mean Corpuscular Hemoglobin 26.5 pg (28.0-32.0); Mean Corpuscular Hgb Conc. 33.3 g/dL (32.0-36.0); Mean Corpuscular Volume 79.4 fL (80.0-100.0); Monocytes % (auto) 9.9 % (0.0-12.0); Neutrophils # (auto) 4.1 10 ^3/uL (1.6-8.6); Red Cell Distribution Width 19.9 % (11.8-14.3); Total Protein 5.7 g/dL (6.4-8.2); White Blood Cell 5.8 10^3/uL (4.4-10.8)
--- NOTE | 2019-11-03 01:30 | NUR ---
K 3.1 - WILL GIVE 40 MEQ KCL IVPB
[2019-11-03] MEDS ORDERED: POTASSIUM CHL 20MEQ/100ML 100 ML IV ONE (01:35)
[2019-11-03] MEDS: POTASSIUM CHL 20MEQ/100ML 100 ML IV SCH ×2 (01:44→03:03)
--- NOTE | 2019-11-03 02:16 | NUR ---
RT NOTE ROUTINE VENT CHECK DONE. PT INTUBATED AND ON VENT ADQ 0236 ON STATED SETTINGS. VENT IS PLUGGED TO RED OUTLET. ALARMS ARE ON AND AUDIBLE TO NURSING. AMBU BAG AT BEDSIDE AND CONNECTED TO O2 SOURCE. 8.0 ETT SECURED WITH ANCHORFAST AT 22 CM TO THE ORAL CENTER. HME AND INLINE SUCTION CHANGED WITHOUT INCIDENT. PT WAS SUCTIONED FOR SMALL RETURN. CONT ORDERED. POX 99%, PT TEMP 99.5 ON COOLING MEASURES Addendum: 11/03/19 at 0222 by Yue Guerin RT Amended: Links added.
[2019-11-03] MEDS: DOPamine 1600MCG/ML D5W 250 ML IV SCH ×2 (03:17→20:15)
--- NOTE | 2019-11-03 04:10 | NUR ---
RT NOTE ROUTINE VENT CHECK DONE. PT INTUBATED AND ON VENT ADQ 0236 ON STATED SETTINGS. VENT IS PLUGGED TO RED OUTLET. ALARMS ARE ON AND AUDIBLE TO NURSING. AMBU BAG AT BEDSIDE AND CONNECTED TO O2 SOURCE. 8.0 ETT SECURED WITH ANCHORFAST AT 22 CM TO THE ORAL CENTER. CONT ORDERED. POX 100%, PT TEMP 99.5 ON COOLING MEASURES Addendum: 11/03/19 at 0410 by Yue Guerin RT Amended: Links added.
[2019-11-03] MEDS: InsuLIN REG 1unit/0.01ml Soln (100units/ml) SC SCH ×3 (06:00→18:00)
[2019-11-03] MEDS: ACCU-CHEK COMFORT CURVE STRIP VI SCH ×3 (06:10→18:12)
--- NOTE | 2019-11-03 06:10 | NUR ---
PARTIAL LINEN CHANGE COMPLETED
--- NOTE | 2019-11-03 07:11 | NUR ---
REPORT AND CARE GIVEN TO JOE NJ
--- NOTE | 2019-11-03 08:00 | NUR ---
ASSESSMENT Pt. resting, arousable to verbal stimuli then gets restless/agitated with physical assessment, pt. on vent-orally intubated, IVFs, Clinimix and Fentanyl gtt. via her right femoral TLC-site benign, right IJ TLC also noted with catheter out by approx. 2-3cm. with dressing holding the catheter in place-CVP readings seen up on the monitor, huerta catheter intact, SCDs on, no signs of pain/distress seen, will monitor pt.
[2019-11-03] MEDS: VANCOMYCIN 1GM/250ML 250 ML IV SCH ×2 (08:58→20:09)
--- NOTE | 2019-11-03 10:30 | NUR ---
Provider/Hospitalist at bedside Dr. Varela made rounds and saw pt. and updated MD on pt.'s status, MD made some orders.
[2019-11-03] MEDS: MEROPENEM 1GM IVPB 100 ML IV SCH ×2 (11:04→23:00)
[2019-11-03] MEDS: PANTOPRAZOLE 40 MG/10 ML VIAL INJ IV SCH ×2 (11:04→23:00)
[2019-11-03] MEDS: FUROSEMIDE 20 MG/2 ML VIAL IV SCH ×2 (11:04→23:00)
--- NOTE | 2019-11-03 12:30 | NUR ---
Provider/Hospitalist at bedside Dr. Fabian Herrera made rounds and saw pt. and updated MD on pt.'s status, orders were made.
--- NOTE | 2019-11-03 13:28 | NUR ---
EXTUBATED PT AT APPROXIMATELY [address] GONZALES'S ORDERS. RN JOE AT BEDSIDE. PLACED PT ON 8L CA AT 30% FIO2. NO STRIDOR NOTED. HR 101, RR 22, SPO2 96 WITH COARSE BS. NO DISTRESS NOTED. WILL CONTINUE TO MONITOR PT.
[2019-11-03] MEDS: MIDAZOLAM DRIP 50 mg/50mL 50 ML IV SCH (14:47)
[2019-11-03] MEDS: NOREPINEPHRINE 8 MG/250ML KIT 250 ML IV SCH (15:15)
--- NOTE | 2019-11-03 15:20 | NUR ---
PAGED Dr. Varela paged to update MD on pt's status, awaiting callback.
--- NOTE | 2019-11-03 15:22 | NUR ---
PLACED PT ON BIPAP ON SETTINGS 12/5 BUR 12, 40% FIO2 DUE TO INCREASED WOB. WAITING ON MD GONZALES FOR FURTHER ORDERS.
--- NOTE | 2019-11-03 16:00 | NUR ---
PAGE no callback from Dr. Varela, another page was made to , and paged Dr. Fabian Herrera for orders, awaiting callback.
--- NOTE | 2019-11-03 16:10 | NUR ---
PAGED Dr. Fabian Herrera paged and called back and updated MD. on pt.'s condition, phone orders were given.
[2019-11-03] MEDS ORDERED: IPRATROPIUM BROM 0.5 MG/2.5ML INH SOL NEB PRN (16:15)
[2019-11-03] MEDS ORDERED: IPRATROPIUM BROM 0.5 MG/2.5ML INH SOL ONE (16:17)
[2019-11-03] MEDS ORDERED: ALBUTEROL SULF 2.5 MG/0.5ML(0.5%) NEB SOLN ONE (16:17)
--- NOTE | 2019-11-03 16:23 | NUR ---
OVERRIDE MEDS: ALBUTEROL 2.5MG AND ATROVENT 0.5MG GIVEN INLINE DUE TO PT WHEEZING T/O. WAITING FOR DR. GONZALES TO CALL BACK FOR FURTHER ORDERS. PT ON BIPAP SETTINGS OF 14/5 BUR 12, 40% FIO2.
[2019-11-03] MEDS ORDERED: ALBUTEROL SULF 2.5 MG/0.5ML(0.5%) NEB SOLN NEB PRN (16:30)
[2019-11-03] MEDS ORDERED: methylPREDNISolone SOD SUCC 125 MG/2 ML VL ONE (16:34)
[2019-11-03] MEDS ORDERED: methylPREDNISolone SOD SUCC 125 MG/2 ML VL IV SCH (16:40)
[2019-11-03] MEDS: IPRATROPIUM BROM 0.5 MG/2.5ML INH SOL NEB SCH ×2 (18:14→22:20)
[2019-11-03] MEDS: ALBUTEROL SULF 2.5 MG/0.5ML(0.5%) NEB SOLN NEB SCH ×2 (18:15→22:20)
--- NOTE | 2019-11-03 19:45 | NUR ---
OPEN ASSUMED CARE OF FEMALE PT S/P EXTUBATION TODAY. PT ON BIPAP MASK 13/09 40%. PT WITH AUDIBLE WHEEZING AND TIGHTNESS TO LUNG ATKINSON. WILL NOTIFY R.T. PT IN NO APPARENT DISTRESS AT THIS TIME. PT ALBANIAN SPEAKING ONLY. ABLE TO FOLLOW SIMPLE COMMANDS AT THIS TIME. ABLE TO MOVE ALL EXTREMITIES. PT FATIGUED. SINUS RHYTHM ON GENERAL SERVICE OFFICER. D5 0.45 NS INFUSING AT 30 ML/HR. PT WITH R. IJ TLC WITH NON INTACT SUTURES. TLC TO R. FEMORAL. ALL PORTS PATENT. DRESSING CDI. ANDERSON TO GRAVITY DRAINING CLEAR LIGHT GERALD URINE. [place] SCD'S IN PLACE. NO SKIN BREAKDOWN OBSERVED. PT WITH MALFORMED FINGERS AND THUMBS. HX OF ARTHRITIS. GENERALIZED EDEMA TO [place]A UPPER AND LOWER EXTREMITIES. BED IN LOWEST LOCKED POSITION. PILLOWS USED TO OFFLOAD BONY PROMINENCES AND PALMIRA HEELS. HOB ELEVATED 30 DEGREES. ORAL CARE PROVIDED. PT IN FULL VIEW OF RN STATION. WILL CONTINUE TO MONITOR.
--- NOTE | 2019-11-03 19:56 | NUR ---
Respiratory note: AT BEDSIDE FOR BIPAP CHECK, PT IN NO RESPIRATORY DISTRESS. RN REQUESTED PRN MED NEB TX BE GIVEN DUE TO WHEEZES/RHONCHI. TX GIVEN IN LINE ON BIPAP. TOLERATING WELL NO ADVERSE REACTIONS NOTED. WILL CONTINUE TO MONITOR.
[2019-11-03] MEDS: AMINO ACID INFUSION IN D5W 2,000 ML IV NR (20:09)
--- NOTE | 2019-11-03 21:00 | NUR ---
REASSESS RESP PT RESTING COMFORTABLY ON BIPAP.
[2019-11-04] VITALS (24 sets, daily range): BP systolic 83–121; BP diastolic 45–68
--- NOTE | 2019-11-04 | NUR ---
Patient refused insulin administration stating she does not normally have increased blood sugars. Patient educated on risk and benefits, patient verbalized understanding. Patient refused. Addendum: 11/05/19 at 0743 by KENYETTA HUFFMAN RN RN Wrong date and time entered: date of refusal 11/05/19 time 0000.
[2019-11-04] MEDS: ACCU-CHEK COMFORT CURVE STRIP VI SCH ×4 (01:00→19:18)
--- NOTE | 2019-11-04 01:00 | NUR ---
CENTRAL LINE REMOVAL R. IJ TLC WITH NON INTACT SUTURES LAYING PART WAY OUT. PT WITH TLC TO R. GROIN INFUSING ALL MEDICATIONS. R. IJ TLC REMOVED. NO BLEEDING. STERILE 4X4 AND NON OCCLUSIVE DRESSING PLACED TO SITE.
--- NOTE | 2019-11-04 01:24 | NUR ---
NEURO/TEACHING PT MOSTLY LIBERIAN SPEAKING. WITH USE OF LIBERIAN SPEAKING RN. PT ABLE TO COMMUNICATE. ABLE TO FOLLOW COMMANDS. EDUCATED PT REGARDING BIPAP MASK. REORIENTED PT TO HOSPITALIZATION. PT VERBALIZED UNDERSTANDING. CALL MOONEY IN REACH.
[2019-11-04] MEDS: IPRATROPIUM BROM 0.5 MG/2.5ML INH SOL NEB SCH ×6 (02:13→22:48)
[2019-11-04] MEDS: ALBUTEROL SULF 2.5 MG/0.5ML(0.5%) NEB SOLN NEB SCH ×6 (02:13→22:47)
[2019-11-04] MEDS: PHENYLEPHRINE IV 250 ML IV SCH ×2 (02:28→10:43)
--- NOTE | 2019-11-04 05:00 | NUR ---
Patient bathe/linen change Patient given complete bath. Skin integrity assessed for any changes. Linens changed. Patient repositioned for comfort.
[2019-11-04] MEDS: InsuLIN REG 1unit/0.01ml Soln (100units/ml) SC SCH ×5 (06:00→19:22)
[2019-11-04] MEDS: methylPREDNISolone SOD SUCC 40 MG/ML VL IV SCH ×3 (06:00→23:17)
--- NOTE | 2019-11-04 07:12 | NUR ---
Opening Shift Note Assumed care of patient, awake and alert x 3. Spoke to patient via [place] RN transfer and line up worker CLEM Gracia. Patient currently on BiPAP mask with 30% FiO2. No S/S of distress/SOB or pain. Bed is in lowest position and locked. Call light within reach. Board updated in Swiss. Bed alarm on. Instructed on POC and to call for assist PRN, will continue to monitor for changes Q1hr and PRN.
--- NOTE | 2019-11-04 07:58 | NUR ---
PT TAKEN OFF BIPAP. PT ON 2L/MIN VIA NC, 99% O2 SATS, HR 90 BPM, RR22 BPM, BS ARE BIBASILARLY DIMINISHED TO AUSCULTATION, SKIN IS WARM AND DRY TO THE TOUCH. NO SOB OR ANY OTHER ACUTE DISTRESS NOTICED. PT IS ASKING FOR "BREAKFAST". PT TOLERATING WELL. WILL CONTINUE TO MONITOR PT.
[2019-11-04] MEDS: VANCOMYCIN 1GM/250ML 250 ML IV SCH ×2 (08:24→21:10)
[2019-11-04 08:54] LABS: Calcium 8.5 mg/dL (8.5-10.1); Magnesium 2.1 mg/dL (1.6-2.6); Potassium 3.5 mmol/L (3.5-5.1)
[2019-11-04 08:57] LABS: Bilirubin, Total 0.8 mg/dL (0.2-1.0); Phosphorus 3.2 mg/dL (2.5-4.90)
--- NOTE | 2019-11-04 09:07 | NUR ---
Placing order for Potassium chloride 40 mEq IV once per MD Herrera's communication order from 11/01/19 to order said medication at said dose if patient's potassium level is below 3.6 mEq. Patient's potassium level this morning is 3.5 mEq. Order will be placed.
[2019-11-04] MEDS: fentaNYL Drip 2500mCg/250mlNS 250 ML IV SCH (09:25)
--- NOTE | 2019-11-04 10:24 | NUR ---
MD Noe notified per pharmacy request if patient should continue Clinimix infusion today. Per MD Noe, continue one more day. Also requested dietary order. Patient able to tolerate ice chips. Order received: Clear liquid diet.
[2019-11-04] MEDS: MEROPENEM 1GM IVPB 100 ML IV SCH ×2 (10:40→23:17)
[2019-11-04] MEDS: FUROSEMIDE 20 MG/2 ML VIAL IV SCH ×2 (10:41→23:17)
[2019-11-04] MEDS: POTASSIUM CHL 20MEQ/100ML 100 ML IV SCH ×2 (10:42→12:55)
[2019-11-04] MEDS: PANTOPRAZOLE 40 MG/10 ML VIAL INJ IV SCH ×2 (10:42→23:16)
[2019-11-04] MEDS: D5W/SOD CHL 0.45% 1,000 ML IV SCH (10:43)
[2019-11-04] MEDS ORDERED: HYDROcodone-ACET 5/325MG TAB PO PRN (11:00)
--- NOTE | 2019-11-04 11:02 | NUR ---
MD Herrera in to see patient. Orders received: 1) Transfer to Telemetry, 2) [place] 5/325 mg 0.5 tablets q 6 hrs PRN moderate pain.
[2019-11-04] MEDS: HYDROcodone-ACET 5/325MG TAB PO PRN ×2 (12:13→21:11)
--- NOTE | 2019-11-04 12:25 | NUR ---
Patient refused regular insulin per sliding scale for blood glucose of 140 mg/dl. Patient states she is not diabetic and does not need insulin. I attempted to educate the patient regarding the importance of strict blood glucose control during hospitalization and illness but patient still refuses insulin.
[2019-11-04] MEDS: DOPamine 1600MCG/ML D5W 250 ML IV SCH (12:35)
--- NOTE | 2019-11-04 13:38 | NUR ---
Assisted patient with eating her lunch. Patient can barely raise her arms to lift spoon or straw to mouth. 75% of meal consumed.
[2019-11-04] MEDS: MIDAZOLAM DRIP 50 mg/50mL 50 ML IV SCH (14:45)
[2019-11-04] MEDS: NOREPINEPHRINE 8 MG/250ML KIT 250 ML IV SCH (15:02)
--- NOTE | 2019-11-04 15:08 | NUR ---
Telemetry bed now available. Patient is set to be transferred to room 223A.
--- NOTE | 2019-11-04 15:41 | NUR ---
Report given to CLEM Shah. Will be transporting patient shortly.
--- NOTE | 2019-11-04 16:01 | NUR ---
Patient arrived to floor. Patient shows no signs of distress at this time. Will continue to monitor.
--- NOTE | 2019-11-04 16:10 | NUR ---
Patient transferred to room 223a using ACLS protocol. Patient transported on 1 l/min NC. All belongings taken to room with patient. DATA PROCESSING SYSTEMS PROJECT PLANNER at bedside upon arrival. Patient alert and oriented x 4 with no signs of distress or SOB upon transfer.
--- NOTE | 2019-11-04 19:30 | NUR ---
Opening Shift Note Assumed care of patient, awake and alert. No S/S of distress/SOB or pain. Patient safety measures in place bed in lowest position, side rails up x2, call light within reach, and bed alarm on. Instructed on POC and to call for assist PRN, will continue to monitor for changes Q1hr and PRN.
[2019-11-04] MEDS: AMINO ACID INFUSION IN D5W 2,000 ML IV NR (19:49)
--- NOTE | 2019-11-04 19:51 | NUR ---
Closing Shift Report gave report to CLEM Gracia. Patient shows no signs of distress at this time.
[2019-11-04] MEDS ORDERED: AMINO ACID INFUSION IN D5W 2,000 ML IV NR (20:00)
--- NOTE | 2019-11-04 20:10 | NUR ---
Called pharmacy patient Clinimix unavailable to administer, current bag patient is running is half full. Pharmacy said continue administrating the bag that is hanging. Pharmacy will reschedule new administration time.
[2019-11-05] MEDS: InsuLIN REG 1unit/0.01ml Soln (100units/ml) SC SCH ×4 (00:49→17:38)
[2019-11-05] MEDS: ACCU-CHEK COMFORT CURVE STRIP VI SCH ×4 (00:49→17:38)
[2019-11-05] MEDS: ALBUTEROL SULF 2.5 MG/0.5ML(0.5%) NEB SOLN NEB SCH ×6 (02:45→22:27)
[2019-11-05] MEDS: IPRATROPIUM BROM 0.5 MG/2.5ML INH SOL NEB SCH ×6 (02:45→22:27)
[2019-11-05 06:38] VITALS: BP 106/49
[2019-11-05] MEDS: methylPREDNISolone SOD SUCC 40 MG/ML VL IV SCH (06:50)
--- NOTE | 2019-11-05 07:00 | NUR ---
Opening Shift Note Received report on the patient. Awake lying in bed. Patient shows no signs of distress at this time. Tried to discuss the plan of care with the patient, but there was a language barrier. Bed in lowest position, side rails up x2, and the call light is within reach.
--- NOTE | 2019-11-05 07:00 | NUR ---
Patient refused insulin administration stating she does not normally have increased blood sugars. Patient educated on risk and benefits, patient verbalized understanding. Patient refused.
[2019-11-05 07:11] LABS: Potassium 3.3 mmol/L (3.5-5.1)
[2019-11-05 07:23] LABS: Albumin 2.1 g/dL (3.4-5.0); BUN/Creatinine Ratio 59.3; Bilirubin, Total 0.7 mg/dL (0.2-1.0); Calcium 8.3 mg/dL (8.5-10.1); Magnesium 2.3 mg/dL (1.6-2.6); Phosphorus 3.1 mg/dL (2.5-4.90)
[2019-11-05 07:59] LABS: Pre Albumin 13.4 mg/dL (20.0-40.0)
[2019-11-05] MEDS: VANCOMYCIN 1GM/250ML 250 ML IV SCH ×2 (08:00→19:53)
[2019-11-05 09:00] VITALS: BP 101/43
--- NOTE | 2019-11-05 09:34 | NUR ---
Nutrition Followup Notes Wt: 80.9 kg Pt`s extubated, transferred out of ICU. Pt is currently NPO with Clinimix running @ 52 ml/hr. Pt with no distress per RN doc. Will continue to monitor PO status, skin status, pertinent labs and weight trends. Will f/u in 2-3 days. Est. Energy Needs ABW 62 [id number] kcal (23-25 kcal/kg BW), Est. Protein Needs: 62-74 gms/day (1.0-1.2 gms/kg ABW r/t hypoalb). Will continue to monitor and reassess prn. LABS: Gluc 140 H, CA 8.3 L ALB 2.9 L. GI: Pt with no BM reported today per RN doc. BS: 14 mod risk. Please refer to wound assessment report for full details. PES: 1) Altered nutrition related lab values r.t current chronic medical condition aeb severe hypoalb hypocalcemia Impaired swallowing r.t current medical condition aeb pt`s intubated sedated with order of NPO Comments 1) advance diet as medically feasible. 2) consider PN support to meet > 75% of needs if pt continues to be npo. 3) continue current plan of care
[2019-11-05] MEDS: PANTOPRAZOLE 40 MG/10 ML VIAL INJ IV SCH ×2 (10:00→22:30)
[2019-11-05] MEDS: FUROSEMIDE 20 MG/2 ML VIAL IV SCH ×2 (10:00→22:30)
--- NOTE | 2019-11-05 10:00 | NUR ---
Dr. Herrera at bedside. New orders received.
[2019-11-05] MEDS ORDERED: POTASSIUM CHL 20 Meq TABLET PO ONE (10:15)
[2019-11-05] MEDS: HYDROcodone-ACET 5/325MG TAB PO PRN ×2 (11:56→18:42)
--- NOTE | 2019-11-05 12:25 | NUR ---
Dr. Bakari Noe at bedside. new orders received.
[2019-11-05] MEDS: MEROPENEM 1GM IVPB 100 ML IV SCH ×2 (12:35→22:53)
--- NOTE | 2019-11-05 12:35 | NUR ---
Meropenem was late because I had to call pharmacy 5 times to have it sent to the unit.
[2019-11-05 13:00] VITALS: BP 101/49
[2019-11-05 17:00] VITALS: BP 104/47
[2019-11-05] MEDS: SUCRALFATE 1 GM/10 ML ORAL SUSP PO SCH ×2 (17:38→22:30)
--- NOTE | 2019-11-05 18:51 | NUR ---
RT NOTE PT WAS SEEN BY RT FOR HHN TX. PT TOLERATES WELL VIA MASK. NO ADVERSE REACTION NOTED. CONT ORDERED Addendum: 11/05/19 at 1851 by Yue Guerin RT Amended: Links added.
--- NOTE | 2019-11-05 19:42 | NUR ---
Opening Shift Note Assumed care of patient, awake and alert. No S/S of distress/SOB or pain. Safety measures in place bed in lowest position, side rails up x2, call light within reach, and fall alarm on. Instructed on POC and to call for assist PRN, will continue to monitor for changes Q1hr and PRN.
--- NOTE | 2019-11-05 19:55 | NUR ---
Chemistry called patient has critical lab value [place] 31.8, pharmacy notified. Medication held.
--- NOTE | 2019-11-05 22:29 | NUR ---
RT NOTE PT WAS SEEN BY RT FOR HHN TX. PT TOLERATES WELL VIA MASK. NO ADVERSE REACTION NOTED. NEW HHN SET UP PROVIDED. CONT ORDERED Addendum: 11/05/19 at 2230 by Yue Guerin RT Amended: Links added.
[2019-11-05 22:30] VITALS: BP 109/49
[2019-11-06] MEDS: ACCU-CHEK COMFORT CURVE STRIP VI SCH ×4 (00:16→17:57)
[2019-11-06 02:11] VITALS: BP 109/49
[2019-11-06] MEDS: ALBUTEROL SULF 2.5 MG/0.5ML(0.5%) NEB SOLN NEB SCH ×6 (02:25→22:25)
[2019-11-06] MEDS: IPRATROPIUM BROM 0.5 MG/2.5ML INH SOL NEB SCH ×6 (02:25→22:25)
--- NOTE | 2019-11-06 02:25 | NUR ---
RT NOTE PT WAS SEEN BY RT FOR HHN TX. PT IS SLEEPING BUT EASILY AWAKENED. NO SWOB OR DISTRESS NOTED. PT REFUSED HHN TX AT THIS TIME TO SLEEP. CONT ORDERED
[2019-11-06] MEDS: HYDROcodone-ACET 5/325MG TAB PO PRN ×2 (05:47→18:38)
[2019-11-06 05:58] VITALS: BP 105/52
[2019-11-06] MEDS: InsuLIN REG 1unit/0.01ml Soln (100units/ml) SC SCH ×4 (05:58→17:57)
[2019-11-06] MEDS: SUCRALFATE 1 GM/10 ML ORAL SUSP PO SCH ×4 (06:52→22:00)
[2019-11-06 09:00] VITALS: BP 125/53
[2019-11-06] MEDS: MEROPENEM 1GM IVPB 100 ML IV SCH ×2 (10:00→23:05)
[2019-11-06] MEDS: FUROSEMIDE 20 MG/2 ML VIAL IV SCH ×2 (10:00→22:35)
[2019-11-06] MEDS: PANTOPRAZOLE 40 MG/10 ML VIAL INJ IV SCH ×2 (10:00→22:36)
--- NOTE | 2019-11-06 10:24 | NUR ---
Dr. Carlton at bedside. New orders received
[2019-11-06 12:04] LABS: Basophils # (auto) 0 10 ^3/uL (0-0.2); Eosinophils # (auto) 0.1 10 ^3/uL (0-0.8); Lymphocytes # (auto) 1.1 10 ^3/uL (0.4-5.4); Monocytes # (auto) 0.8 10 ^3/uL (0-1.3)
[2019-11-06 12:06] LABS: Basophils % (auto) 0.4 % (0.0-2.0); Eosinophils % (auto) 2.7 % (0.0-7.0); Hematocrit 28.7 % (36.0-46.0); Hemoglobin 9.2 g/dL (12.2-16.2); Lymphocytes % (auto) 20.2 % (10.0-50.0); Mean Corpuscular Hemoglobin 25.8 pg (28.0-32.0); Mean Corpuscular Hgb Conc. 32.1 g/dL (32.0-36.0); Mean Corpuscular Volume 80.3 fL (80.0-100.0); Monocytes % (auto) 15.6 % (0.0-12.0); Neutrophils # (auto) 3.3 10 ^3/uL (1.6-8.6); Neutrophils % (auto) 61.1 % (37.0-80.0); Nucleated Red Blood Cells % 0.1 %; Platelet Count (auto) 201 10^3/uL (140-450); Red Blood Cells 3.58 10^6/uL (4.0-5.20); Red Cell Distribution Width 20.6 % (11.8-14.3); White Blood Cell 5.3 10^3/uL (4.4-10.8)
[2019-11-06 12:35] LABS: BUN/Creatinine Ratio 54.7; Calcium 8.2 mg/dL (8.5-10.1); Potassium 3.3 mmol/L (3.5-5.1)
[2019-11-06 13:00] VITALS: BP 139/65
[2019-11-06 17:00] VITALS: BP 126/61
[2019-11-06] MEDS ORDERED: VANCOMYCIN 1GM/250ML 250 ML IV SCH (18:00)
[2019-11-06 22:00] VITALS: BP 150/78
[2019-11-07] MEDS: ALBUTEROL SULF 2.5 MG/0.5ML(0.5%) NEB SOLN NEB SCH ×4 (02:30→14:13)
[2019-11-07] MEDS: IPRATROPIUM BROM 0.5 MG/2.5ML INH SOL NEB SCH ×4 (02:30→14:13)
[2019-11-07] MEDS: HYDROcodone-ACET 5/325MG TAB PO PRN (03:36)
[2019-11-07 05:00] VITALS: BP 134/70
[2019-11-07] MEDS: ACCU-CHEK COMFORT CURVE STRIP VI SCH ×4 (06:00→17:34)
[2019-11-07] MEDS: InsuLIN REG 1unit/0.01ml Soln (100units/ml) SC SCH ×4 (06:00→17:33)
[2019-11-07] MEDS: SUCRALFATE 1 GM/10 ML ORAL SUSP PO SCH ×3 (07:00→17:00)
[2019-11-07 07:30] LABS: Basophils # (auto) 0 10 ^3/uL (0-0.2); Eosinophils # (auto) 0.3 10 ^3/uL (0-0.8); Hemoglobin 9.5 g/dL (12.2-16.2); Lymphocytes # (auto) 1.2 10 ^3/uL (0.4-5.4); Nucleated Red Blood Cells % 0.1 %; White Blood Cell 4.4 10^3/uL (4.4-10.8)
[2019-11-07 07:32] LABS: Basophils % (auto) 0.9 % (0.0-2.0); Eosinophils % (auto) 6.2 % (0.0-7.0); Hematocrit 30.1 % (36.0-46.0); Lymphocytes % (auto) 26.8 % (10.0-50.0); Mean Corpuscular Hemoglobin 26.2 pg (28.0-32.0); Mean Corpuscular Hgb Conc. 31.6 g/dL (32.0-36.0); Mean Corpuscular Volume 83.1 fL (80.0-100.0); Monocytes # (auto) 0.7 10 ^3/uL (0-1.3); Neutrophils # (auto) 2.2 10 ^3/uL (1.6-8.6); Neutrophils % (auto) 51.1 % (37.0-80.0); Platelet Count (auto) 180 10^3/uL (140-450); Red Blood Cells 3.63 10^6/uL (4.0-5.20)
[2019-11-07 07:56] LABS: Calcium 7.9 mg/dL (8.5-10.1); Potassium 3.4 mmol/L (3.5-5.1)
--- NOTE | 2019-11-07 08:00 | NUR ---
RECEIVED PATIENT ALERT AND ORIENTED X4, LITHUANIAN SPEAKING ONLY, NOT IN DISTRESS, CLEAR LS IN BILATERAL UPPER AND DIMINISHED IN LOWER LUNG SOUNDS, RR=18 SAT=93%, DEEP BREATHING AND COUGHING WAS ENCOURAGED, DEMONSTRATED UNDERSTANDING, DENIED SOB AND CHEST PAIN AT THIS MOMENT, PACING R=90 ON TELE MONITOR, ABDOMEN SOFT WITH ACTIVE BS IN ALL FOUR QUADRANTS, LAST BM ON 11/02/19 REPORTED, ANDERSON CATH IN PLACE AND PATENT, DRAINING CLEAR YELLOW URINE, SACRUM COVERED WITH PROTECTIVE DRY AND INTACT OPTIFOAM DRESSING, RT, GROIN TRIPLE LUMEN CENTRAL LINE IN PLACE AND PATENT, COVERED WITH DRY AND INTACT DRESSING, SKIN INTACT WARM TO TOUCH, RESTING ON BED, HEAD OF BED ELEVATED, BED ON LOW POSITION, RAILS UP X2, CALL LIGHT ON REACH, PENDING PT, WILL CONTINUE MONITORING.
[2019-11-07 09:23] VITALS: BP 126/69
[2019-11-07] MEDS ORDERED: levoFLOXacin 500MG 100 ML IV SCH (10:00)
[2019-11-07] MEDS: FUROSEMIDE 20 MG/2 ML VIAL IV SCH (10:15)
[2019-11-07] MEDS: PANTOPRAZOLE 40 MG/10 ML VIAL INJ IV SCH (10:16)
[2019-11-07] MEDS: MEROPENEM 1GM IVPB 100 ML IV SCH (11:11)
--- NOTE | 2019-11-07 12:00 | NUR ---
OUT OF BED TO THE CHAIR FOR TWO HOURS, TOLERATING WELL, TOLERATED 100% OF FULL LIQUID DIET WELL, NOT IN DISTRESS SITTING ON THE CHAIR, PENDING D/C, WILL CONTINUE MONITORING.
[2019-11-07 12:22] VITALS: BP 113/69
--- NOTE | 2019-11-07 14:40 | NUR ---
D/C Planning Per consult for SNF placement. Faxed clinical information to [facility]. Per Niyah with [facility] Ph:) patient has been accepted to room 202 bed 3 accepting Md, Dr. Fabian Herrera. Transportation has been arranged with [facility] ) via gurney with oxygen, pear picker time 18:00. Informed CLEM Nvaarro.
--- NOTE | 2019-11-07 14:41 | NUR ---
Nutrition Followup Notes Wt: 79.8 kg Pt was sleeping at time of rounds. pt diet advanced to full liq on 11/03 and pt appetite is good aeb pt with adequate po intake of 85% avg per RN note since diet advanced. Est. Energy Needs ABW 62 [id number] kcal (23-25 kcal/kg BW), Est. Protein Needs: 62-74 gms/day (1.0-1.2 gms/kg ABW r/t hypoalb). Will continue to monitor and reassess prn. LABS: BUN 31H, Ca 7.9L, Alb 2.1L GI: Pt with no BM reported today per RN doc. BS: 14 mod risk. Please refer to wound assessment report for full details. PES: 1) Altered nutrition related lab values r.t current chronic medical condition aeb severe hypoalb hypocalcemia Impaired swallowing r.t current medical condition aeb pt`s intubated sedated with order of NPO Comments 1) advance diet as medically feasible 2) consider PN support to meet > 75% of needs if pt continues to be npo. 3) continue current plan of care
[2019-11-07 15:30] VITALS: BP 126/69
[2019-11-07 16:52] VITALS: BP 134/67
--- NOTE | 2019-11-07 18:00 | NUR ---
CONTACT WAS UNABLE TO REACH ON [phone] [phone], NO VOICE MAIL TO LIVE A MESSAGE, REPORT WAS GIVEN TO THE RECEIVING NURSE IN [facility] [phone] ROOM 202 BED #3, INFORMATION WAS REPEATED AND VERIFIED, VERBALIZED UNDERSTANDING, WILL CONTINUE MONITORING.
--- NOTE | 2019-11-07 19:01 | NUR ---
UNABLE TO SIGN D/C INFORMATION, TRANSFER AND BELONGING LIST, D/C INFORMATION AND EDUCATION PROVIDED, D/C ENVELOPE HANDED TO THE TRANSPORTATION PERSONAL, D/C TELE, D/C ANDERSON CATH VOIDED X1 POST D/C, D/C CENTRAL LINE FROM RT. GROIN, TOLERATED WELL, NOT IN DISTRESS, DENIED PAIN, VS T=98.2 RR=18 SAT=94% P=68 BW=770/72, D/C TO [facility], TOOL ALL BELONGINGS AND LEFT NOTHING BEHIND.
== END 2019-11-07 18:25 | DRG 870 ==
LOC: ER 08:58 → EDUNIT# 08:58 → EDBD 08:58 → OVERFLOW 08:59 → ICU WEST 10-26 08:50 → TELE-CENTR 11-04 15:47
PROVIDERS: ADMIT Specialist; ATTEND Specialist
PROC: 5A1955Z Respiratory Ventilation, Greater than 96 Consecutive Hours (ICD-10-PCS; principal; 2019-10-24)
PROC: 0BH17EZ Insertion of Endotracheal Airway into Trachea, Via Natural or Artificial Opening (ICD-10-PCS; 2019-10-24)
PROC: 06HY33Z Insertion of Infusion Device into Lower Vein, Percutaneous Approach (ICD-10-PCS; 2019-10-24)
PROC: 30233N1 Transfusion of Nonautologous Red Blood Cells into Peripheral Vein, Percutaneous Approach (ICD-10-PCS; 2019-10-24)
PROC: 02HV33Z Insertion of Infusion Device into Superior Vena Cava, Percutaneous Approach (ICD-10-PCS; 2019-10-24)
PROC: 5A09357 Assistance with Respiratory Ventilation, Less than 24 Consecutive Hours, Continuous Positive Airway Pressure (ICD-10-PCS; 2019-11-03)
DX: A41.51 Sepsis due to Escherichia coli [E. coli] (principal); G93.41 Metabolic encephalopathy; I21.3 ST elevation (STEMI) myocardial infarction of unspecified site; J15.212 Pneumonia due to Methicillin resistant Staphylococcus aureus; J96.00 Acute respiratory failure, unspecified whether with hypoxia or hypercapnia; R65.21 Severe sepsis with septic shock; I50.31 Acute diastolic (congestive) heart failure; N30.00 Acute cystitis without hematuria; K92.0 Hematemesis; N17.9 Acute kidney failure, unspecified; K92.2 Gastrointestinal hemorrhage, unspecified; E87.2 Acidosis; E46 Unspecified protein-calorie malnutrition; E86.0 Dehydration; B96.20 Unspecified Escherichia coli [E. coli] as the cause of diseases classified elsewhere; I25.10 Atherosclerotic heart disease of native coronary artery without angina pectoris; E87.6 Hypokalemia; Z88.2 Allergy status to sulfonamides; Z88.0 Allergy status to penicillin; E11.9 Type 2 diabetes mellitus without complications; I11.0 Hypertensive heart disease with heart failure; Z95.0 Presence of cardiac pacemaker; M06.9 Rheumatoid arthritis, unspecified; Z82.49 Family history of ischemic heart disease and other diseases of the circulatory system; Z20.828 Contact with and (suspected) exposure to other viral communicable diseases; Z68.32 Body mass index [BMI] 32.0-32.9, adult
CPT/HCPCS: 31500; 36415; 36556; 36600; 51702; 70450; 71045; 74176; 80048; 80053; 80076; 80202; 80320; 81001; 82040; 82728; 82805; 82962; 83605; 83615; 83735; 83880; 84100; 84132; 84478; 84484; 85014; 85018; 85025; 85610; 85730; 86703; 86704; 86706; 86803; 86850; 86900; 86901; 86920; 87040; 87070; 87077; 87081; 87086; 87088; 87186; 87205; 87340; 87804; 87880; 93005; 94002; 94003; 94640; 94660; 96365; 96372; 96375; 97110; 97163; 97530; 99291; C9113; G0378; J0330; J1815; J1956; J2185; J2250; J2405; J3480; J3490; Q9967

== ENCOUNTER 2021-01-26 11:40 | Inpatient (IN) | payer MEDICARE, OTHER ==
[~2021-01-26] VITALS: Ht 157.5 cm; Wt 74.0 kg
[2021-01-26] MEDS ORDERED: ASPirin 81 mg TAB PO ONE (12:00)
[2021-01-26 12:25] LABS: Albumin 2.9 g/dL (3.4-5.0); Anion Gap 8 (5-15); Basophils # (auto) 0 10 ^3/uL (0-0.2); Blood Urea Nitrogen 17 mg/dL (7-18); Calcium 8.5 mg/dL (8.5-10.1); Carbon Dioxide 22 mmol/L (21-32); Chloride 108 mmol/L (98-107); Eosinophils # (auto) 0.1 10 ^3/uL (0-0.8); Glucose 135 mg/dL (74-106); Lymphocytes # (auto) 1.3 10 ^3/uL (0.4-5.4); Neutrophils # (auto) 3.9 10 ^3/uL (1.6-8.6); Potassium 4.2 mmol/L (3.5-5.1); Sodium 138 mmol/L (136-145)
[2021-01-26 12:27] LABS: Basophils % (auto) 0.3 % (0.0-2.0); Eosinophils % (auto) 1.8 % (0.0-7.0); Hematocrit 33.5 % (36.0-46.0); Hemoglobin 10.8 g/dL (12.2-16.2); Lymphocytes % (auto) 22.3 % (10.0-50.0); Mean Corpuscular Hemoglobin 23.9 pg (28.0-32.0); Mean Corpuscular Hgb Conc. 32.3 g/dL (32.0-36.0); Mean Corpuscular Volume 73.9 fL (80.0-100.0); Monocytes # (auto) 0.5 10 ^3/uL (0-1.3); Monocytes % (auto) 7.9 % (0.0-12.0); Neutrophils % (auto) 67.7 % (37.0-80.0); Nucleated Red Blood Cells % 0.2 %; Red Blood Cells 4.53 10^6/uL (4.0-5.20); Red Cell Distribution Width 21.2 % (11.8-14.3); White Blood Cell 5.8 10^3/uL (4.4-10.8)
[2021-01-26 12:30] LABS: Alanine Aminotransferase 17 U/L (13-56); Alkaline Phosphatase 93 U/L (45-117); Aspartate Aminotransferase 17 U/L (15-37); BUN/Creatinine Ratio 21.3; Bilirubin, Total 0.2 mg/dL (0.2-1.0); GFR African American 89 mL/min; GFR Non-African American 73 mL/min; Total Protein 6.6 g/dL (6.4-8.2)
[2021-01-26] MEDS ORDERED: cefTRIAXone 1GM/50ML D5W 50 ML IV ONE (13:00)
[2021-01-26] MEDS ORDERED: ALPRAZolam 0.25 MG TAB PO PRN (16:45)
[2021-01-26] MEDS ORDERED: NITROGLYCERIN 0.4 MG SL TAB SL PRN (16:45)
[2021-01-26] MEDS ORDERED: MORPHINE SULFATE INJECTION 2 MG/ML SYRG IV PRN (16:45)
[2021-01-26] MEDS ORDERED: DOCUSATE SOD 100 MG CAP PO PRN (16:45)
[2021-01-26 19:00] VITALS: BP 142/74
[2021-01-26] MEDS: ALBUTEROL SULF 2.5 MG/0.5ML(0.5%) NEB SOLN NEB SCH ×2 (19:09→22:18)
[2021-01-26 20:00] VITALS: BP 142/74
[2021-01-26] MEDS: HYDROcodone-ACET 5/325MG TAB PO PRN (20:06)
[2021-01-26] MEDS: PANTOPRAZOLE 40 MG/10 ML VIAL INJ IV SCH (23:28)
[2021-01-26] MEDS: ATENOLOL 25 MG TAB PO SCH (23:28)
[2021-01-27 01:17] VITALS: BP 142/56
[2021-01-27] MEDS: ALBUTEROL SULF 2.5 MG/0.5ML(0.5%) NEB SOLN NEB SCH ×7 (02:28→22:09)
[2021-01-27] MEDS: HYDROcodone-ACET 5/325MG TAB PO PRN ×4 (03:26→20:42)
[2021-01-27 05:00] VITALS: BP 101/58
[2021-01-27 09:00] VITALS: BP 130/68
[2021-01-27] MEDS: ASPirin 81 mg TAB PO SCH (09:13)
[2021-01-27] MEDS: ENOXAPARIN SOD 40 MG/0.4 ML SYRINGE SC SCH (09:13)
[2021-01-27] MEDS: PANTOPRAZOLE 40 MG/10 ML VIAL INJ IV SCH ×2 (09:13→20:42)
[2021-01-27] MEDS: methylPREDNISolone SOD SUCC 40 MG/ML VL IV SCH (09:13)
[2021-01-27] MEDS: AZITHROMYCIN 500MG/ 250ML 250 ML IV SCH (09:50)
[2021-01-27] MEDS: ATENOLOL 25 MG TAB PO SCH ×2 (09:51→20:42)
[2021-01-27] MEDS ORDERED: ACYCLOVIR 400 MG TAB PO SCH (10:00)
[2021-01-27] MEDS: PROMETHAZINE W/CODEINE 5 ML ORAL SYRUP PO PRN (11:30)
[2021-01-27 13:00] VITALS: BP 119/53
[2021-01-27] MEDS ORDERED: ACETAMINOPHEN 325 MG TAB PO PRN (13:30)
[2021-01-27 17:00] VITALS: BP 112/62
[2021-01-27 22:00] VITALS: BP 99/46
[2021-01-28] MEDS: PROMETHAZINE W/CODEINE 5 ML ORAL SYRUP PO PRN ×4 (00:30→20:52)
[2021-01-28 05:00] VITALS: BP 95/58
[2021-01-28] MEDS: ALBUTEROL SULF 2.5 MG/0.5ML(0.5%) NEB SOLN NEB SCH ×6 (06:26→23:57)
[2021-01-28] MEDS: HYDROcodone-ACET 5/325MG TAB PO PRN ×2 (06:31→20:51)
[2021-01-28 09:00] VITALS: BP 103/48
[2021-01-28] MEDS: ASPirin 81 mg TAB PO SCH (11:08)
[2021-01-28] MEDS: methylPREDNISolone SOD SUCC 40 MG/ML VL IV SCH (11:08)
[2021-01-28] MEDS: AZITHROMYCIN 500MG/ 250ML 250 ML IV SCH (11:08)
[2021-01-28] MEDS: PANTOPRAZOLE 40 MG/10 ML VIAL INJ IV SCH ×2 (11:08→20:49)
[2021-01-28] MEDS: ATENOLOL 25 MG TAB PO SCH ×2 (11:08→20:50)
[2021-01-28] MEDS: ENOXAPARIN SOD 40 MG/0.4 ML SYRINGE SC SCH (11:09)
[2021-01-28 13:00] VITALS: BP 100/49
[2021-01-28 17:00] VITALS: BP 136/73
[2021-01-28 22:00] VITALS: BP 153/71
[2021-01-29] MEDS: PROMETHAZINE W/CODEINE 5 ML ORAL SYRUP PO PRN ×4 (01:34→19:50)
[2021-01-29 04:30] VITALS: BP 110/63
[2021-01-29 05:51] LABS: Basophils # (auto) 0 10 ^3/uL (0-0.2); Basophils % (auto) 0.1 % (0.0-2.0); Eosinophils # (auto) 0 10 ^3/uL (0-0.8); Lymphocytes # (auto) 0.9 10 ^3/uL (0.4-5.4); Mean Corpuscular Volume 73.8 fL (80.0-100.0)
[2021-01-29] MEDS: HYDROcodone-ACET 5/325MG TAB PO PRN ×3 (05:54→19:49)
[2021-01-29 05:55] LABS: Hematocrit 30.3 % (36.0-46.0); Hemoglobin 9.6 g/dL (12.2-16.2); Lymphocytes % (auto) 20.6 % (10.0-50.0); Mean Corpuscular Hemoglobin 23.4 pg (28.0-32.0); Mean Corpuscular Hgb Conc. 31.7 g/dL (32.0-36.0); Monocytes # (auto) 0.4 10 ^3/uL (0-1.3); Monocytes % (auto) 8.2 % (0.0-12.0); Neutrophils # (auto) 3.1 10 ^3/uL (1.6-8.6); Neutrophils % (auto) 71.1 % (37.0-80.0); Nucleated Red Blood Cells % 0.1 %; White Blood Cell 4.4 10^3/uL (4.4-10.8)
[2021-01-29] MEDS: ALBUTEROL SULF 2.5 MG/0.5ML(0.5%) NEB SOLN NEB SCH ×4 (06:00→23:23)
[2021-01-29 09:00] VITALS: BP 132/77
[2021-01-29] MEDS: ASPirin 81 mg TAB PO SCH (09:52)
[2021-01-29] MEDS: methylPREDNISolone SOD SUCC 40 MG/ML VL IV SCH (09:52)
[2021-01-29] MEDS: ATENOLOL 25 MG TAB PO SCH ×2 (09:52→19:55)
[2021-01-29] MEDS: PANTOPRAZOLE 40 MG/10 ML VIAL INJ IV SCH (09:52)
[2021-01-29] MEDS: ENOXAPARIN SOD 40 MG/0.4 ML SYRINGE SC SCH (09:53)
[2021-01-29] MEDS: AZITHROMYCIN 500MG/ 250ML 250 ML IV SCH (10:00)
[2021-01-29 13:00] VITALS: BP_SYST 139; BP_SYST 89; BP_DIAS 56; BP_DIAS 77
[2021-01-29 16:53] VITALS: BP 116/73
[2021-01-29 21:03] VITALS: BP 116/73
[2021-01-29 22:00] VITALS: BP 117/62
[2021-01-30] MEDS: PROMETHAZINE W/CODEINE 5 ML ORAL SYRUP PO PRN ×2 (00:11→04:30)
[2021-01-30] MEDS: ALBUTEROL SULF 2.5 MG/0.5ML(0.5%) NEB SOLN NEB SCH ×3 (02:00→10:00)
[2021-01-30 05:00] VITALS: BP 113/61
[2021-01-30 08:42] VITALS: BP 143/76
[2021-01-30] MEDS: HYDROcodone-ACET 5/325MG TAB PO PRN (08:56)
[2021-01-30] MEDS: ASPirin 81 mg TAB PO SCH (09:29)
[2021-01-30] MEDS: ATENOLOL 25 MG TAB PO SCH (09:30)
[2021-01-30] MEDS: ENOXAPARIN SOD 40 MG/0.4 ML SYRINGE SC SCH (09:30)
[2021-01-30] MEDS: methylPREDNISolone SOD SUCC 40 MG/ML VL IV SCH (09:31)
[2021-01-30] MEDS ORDERED: PANTOPRAZOLE 40 MG TAB PO SCH (10:00)
[2021-01-30] MEDS ORDERED: AZITHROMYCIN 250 MG TAB PO SCH (10:00)
[2021-01-30 13:00] VITALS: BP 130/57
== END 2021-01-30 10:33 | disposition home or self-care (01) | DRG 291 ==
LOC: EDBD 11:40 → ER 11:40 → EDUNIT# 11:40 → OVERFLOW 16:43 → WEST WING 19:17
PROVIDERS: ADMIT Specialist; ATTEND Specialist
PROC: 05HB33Z Insertion of Infusion Device into Right Basilic Vein, Percutaneous Approach (ICD-10-PCS; principal; 2021-01-27)
PROC: B54MZZA Ultrasonography of Right Upper Extremity Veins, Guidance (ICD-10-PCS; 2021-01-27)
DX: I11.0 Hypertensive heart disease with heart failure (principal); I50.31 Acute diastolic (congestive) heart failure; J44.1 Chronic obstructive pulmonary disease with (acute) exacerbation; E11.9 Type 2 diabetes mellitus without complications; Z20.822 Contact with and (suspected) exposure to COVID-19; K21.9 Gastro-esophageal reflux disease without esophagitis; J06.9 Acute upper respiratory infection, unspecified; Z88.2 Allergy status to sulfonamides; Z88.0 Allergy status to penicillin
CPT/HCPCS: 36415; 71045; 80053; 82565; 83880; 84484; 85025; 87081; 87426; 94640; C9113; G0378

== ENCOUNTER 2021-04-23 12:05 | Emergency (ER) | payer MEDICARE, OTHER ==
[~2021-04-23] VITALS: Ht 162.6 cm; Wt 77.1 kg
[2021-04-23 13:17] LABS: Basophils # (auto) 0 10 ^3/uL (0-0.2); Basophils % (auto) 0.6 % (0.0-2.0); Eosinophils # (auto) 0.2 10 ^3/uL (0-0.8); Eosinophils % (auto) 2.3 % (0.0-7.0); Hematocrit 35.4 % (36.0-46.0); Hemoglobin 11.1 g/dL (12.2-16.2); Lymphocytes # (auto) 1.8 10 ^3/uL (0.4-5.4); Lymphocytes % (auto) 23.8 % (10.0-50.0); Mean Corpuscular Hemoglobin 22.8 pg (28.0-32.0); Mean Corpuscular Hgb Conc. 31.4 g/dL (32.0-36.0); Mean Corpuscular Volume 72.5 fL (80.0-100.0); Monocytes # (auto) 0.5 10 ^3/uL (0-1.3); Monocytes % (auto) 6.3 % (0.0-12.0); Neutrophils # (auto) 5.1 10 ^3/uL (1.6-8.6); Red Blood Cells 4.88 10^6/uL (4.0-5.20); White Blood Cell 7.7 10^3/uL (4.4-10.8)
[2021-04-23] MEDS: MORPHINE SULFATE INJECTION 2 MG/ML SYRG IM ONE (13:24)
[2021-04-23 13:30] LABS: Urine Bacteria FEW /hpf (None Seen); Urine Blood Negative /uL (Negative); Urine WBC <1 /hpf (0 - 5)
[2021-04-23 13:32] LABS: Albumin 2.9 g/dL (3.4-5.0); Calcium 8.2 mg/dL (8.5-10.1); Potassium 4.6 mmol/L (3.5-5.1)
[2021-04-23 13:38] LABS: BUN/Creatinine Ratio 28.6; Bilirubin, Total 0.3 mg/dL (0.2-1.0); Total Protein 6.4 g/dL (6.4-8.2)
[2021-04-23 14:38] VITALS: BP 131/67
== END 2021-04-23 15:05 | disposition home or self-care (01) ==
LOC: EDBD 12:05 → ER 12:05
DX: M19.90 Unspecified osteoarthritis, unspecified site (principal); I11.0 Hypertensive heart disease with heart failure; I50.9 Heart failure, unspecified; J45.909 Unspecified asthma, uncomplicated; E11.9 Type 2 diabetes mellitus without complications; K21.9 Gastro-esophageal reflux disease without esophagitis; Z90.710 Acquired absence of both cervix and uterus; Z88.0 Allergy status to penicillin; Z88.2 Allergy status to sulfonamides
CPT/HCPCS: 36415; 71045; 80053; 81001; 83880; 84484; 85025; 93005; 96372; 99285; J2270

== ENCOUNTER 2021-05-28 14:34 | Emergency (ER) | payer MEDICARE, OTHER ==
[~2021-05-28] VITALS: Ht 160 cm; Wt 63.5 kg
[2021-05-28 15:59] LABS: Basophils # (auto) 0 10 ^3/uL (0-0.2); Hemoglobin 9.6 g/dL (12.2-16.2); Neutrophils # (auto) 3.4 10 ^3/uL (1.6-8.6); Nucleated Red Blood Cells % 0.1 %
[2021-05-28 16:00] LABS: Basophils % (auto) 0.1 % (0.0-2.0); Eosinophils # (auto) 0.3 10 ^3/uL (0-0.8); Eosinophils % (auto) 4.5 % (0.0-7.0); Hematocrit 30.2 % (36.0-46.0); Lymphocytes # (auto) 1.4 10 ^3/uL (0.4-5.4); Lymphocytes % (auto) 25.7 % (10.0-50.0); Mean Corpuscular Hgb Conc. 31.8 g/dL (32.0-36.0); Mean Corpuscular Volume 69.3 fL (80.0-100.0); Monocytes # (auto) 0.5 10 ^3/uL (0-1.3); Monocytes % (auto) 8.6 % (0.0-12.0); Neutrophils % (auto) 61.1 % (37.0-80.0); Red Blood Cells 4.35 10^6/uL (4.0-5.20); Red Cell Distribution Width 18.8 % (11.8-14.3); White Blood Cell 5.6 10^3/uL (4.4-10.8)
[2021-05-28 16:16] LABS: Albumin 2.8 g/dL (3.4-5.0); Calcium 8.4 mg/dL (8.5-10.1); Potassium 4.4 mmol/L (3.5-5.1)
[2021-05-28 16:19] LABS: BUN/Creatinine Ratio 24.3; Bilirubin, Total 0.2 mg/dL (0.2-1.0); Total Protein 6.5 g/dL (6.4-8.2)
[2021-05-28] MEDS ORDERED: PRED20TA2 PO (18:36)
[2021-05-28] MEDS ORDERED: AZIT1POW12 PO (18:36)
[2021-05-28] MEDS ORDERED: ALBUAER3 IN (18:36)
[2021-05-28] MEDS ORDERED: ALBUTEROL SULF 2.5 MG/0.5ML(0.5%) NEB SOLN NEB ONE (21:30)
[2021-05-28] MEDS ORDERED: DexAMETHasone SOD PHOS 10MG/1ML VIAL INJ IM ONE (21:30)
[2021-05-28] MEDS ORDERED: cefTRIAXone 1GM/50ML D5W 50 ML IV ONE (21:30)
[2021-05-28] MEDS ORDERED: AZITHROMYCIN 250 MG TAB PO ONE (21:30)
[2021-05-28] MEDS ORDERED: IPRATROPIUM BROM 0.5 MG/2.5ML INH SOL NEB ONE (21:30)
[2021-05-28] MEDS ORDERED: HYDROcodone-ACET 5/325MG TAB PO ONE (21:45)
[2021-05-28 22:15] VITALS: BP 123/84
== END 2021-05-28 22:27 | disposition home or self-care (01) ==
LOC: ER 14:34
DX: J06.9 Acute upper respiratory infection, unspecified (principal); R51.9 Headache, unspecified; J45.909 Unspecified asthma, uncomplicated; I11.0 Hypertensive heart disease with heart failure; I50.9 Heart failure, unspecified; K21.9 Gastro-esophageal reflux disease without esophagitis; Z90.710 Acquired absence of both cervix and uterus; Z88.0 Allergy status to penicillin; Z88.2 Allergy status to sulfonamides
CPT/HCPCS: 36415; 71045; 80053; 85025

== ENCOUNTER 2021-06-25 18:11 | Emergency (ER) | payer MEDICARE, OTHER ==
[~2021-06-25] VITALS: Ht 160 cm; Wt 77.1 kg
[~2021-06-25 18:11] MED LIST: ALBUAER3 IN; AZIT1POW12 PO; PRED20TA2 PO
[2021-06-25] MEDS ORDERED: SODIUM CHLORIDE 0.9% 500 ML IV ONE (19:15)
[2021-06-25] MEDS ORDERED: ACETAMINOPHEN 325 MG TAB PO ONE (20:00)
[2021-06-25 20:35] LABS: Basophils # (auto) 0 10 ^3/uL (0-0.2); Basophils % (auto) 0.2 % (0.0-2.0); Eosinophils # (auto) 0 10 ^3/uL (0-0.8); Eosinophils % (auto) 0.1 % (0.0-7.0); Hematocrit 30.5 % (36.0-46.0); Hemoglobin 9.8 g/dL (12.2-16.2); Lymphocytes # (auto) 1.1 10 ^3/uL (0.4-5.4); Lymphocytes % (auto) 10.2 % (10.0-50.0); Mean Corpuscular Hgb Conc. 32.2 g/dL (32.0-36.0); Mean Corpuscular Volume 68.2 fL (80.0-100.0); Monocytes # (auto) 0.7 10 ^3/uL (0-1.3); Monocytes % (auto) 6.7 % (0.0-12.0); Neutrophils # (auto) 8.6 10 ^3/uL (1.6-8.6); Neutrophils % (auto) 82.8 % (37.0-80.0); Red Blood Cells 4.47 10^6/uL (4.0-5.20); Red Cell Distribution Width 19.4 % (11.8-14.3); White Blood Cell 10.4 10^3/uL (4.4-10.8)
[2021-06-25 20:44] LABS: Potassium 4.1 mmol/L (3.5-5.1)
[2021-06-25 20:45] LABS: Lactic Acid w/Reflex 2.7 mmol/L (0.4-2.0)
[2021-06-25 20:56] LABS: Albumin 3.1 g/dL (3.4-5.0); BUN/Creatinine Ratio 16.7; Bilirubin, Total 0.6 mg/dL (0.2-1.0); Calcium 8.6 mg/dL (8.5-10.1); Total Protein 7.2 g/dL (6.4-8.2)
[2021-06-25] MEDS ORDERED: ALBUTEROL SULF HFA 90MCG INH 200DOSE IN SCH (22:00)
[2021-06-25] MEDS ORDERED: ALBUTEROL SULF 2.5 MG/0.5ML(0.5%) NEB SOLN NEB ONE (23:30)
[2021-06-26] MEDS ORDERED: levoFLOXacin 750MG 150 ML IV ONE (01:15)
[2021-06-26] MEDS ORDERED: SODIUM CHLORIDE 0.9% 1,000 ML IV ONE (01:15)
[2021-06-26 05:37] LABS: Urine Bacteria FEW /hpf (None Seen); Urine Blood Negative /uL (Negative); Urine Hyaline Cast FEW /lpf (0 - 2); Urine Specific Gravity 1.013 (1.001-1.035); Urine WBC 1 /hpf (0 - 5)
[2021-06-26] MEDS ORDERED: LEVO500T31 PO (06:23)
[2021-06-26] MEDS ORDERED: ALBU108A5 IN (06:23)
[2021-06-26 07:22] VITALS: BP 118/76
== END 2021-06-26 07:21 | disposition home or self-care (01) ==
LOC: EDUNIT# 18:11 → EDBD 18:11 → ER 18:14
DX: R07.2 Precordial pain (principal); R11.0 Nausea; R05.9 Cough, unspecified; I11.0 Hypertensive heart disease with heart failure; I50.9 Heart failure, unspecified; E11.9 Type 2 diabetes mellitus without complications; K21.9 Gastro-esophageal reflux disease without esophagitis; J45.909 Unspecified asthma, uncomplicated; Z90.710 Acquired absence of both cervix and uterus; Z95.0 Presence of cardiac pacemaker; Z79.2 Long term (current) use of antibiotics; Z79.899 Other long term (current) drug therapy; Z88.0 Allergy status to penicillin; Z88.2 Allergy status to sulfonamides; Z20.822 Contact with and (suspected) exposure to COVID-19
CPT/HCPCS: 36415; 71045; 80053; 81001; 83605; 84484; 85025; 87040; 87426; 93005; 96361; 96365; 99285; J7030

== ENCOUNTER 2024-04-05 13:30 | Inpatient (IN) | payer MEDICARE, OTHER ==
[~2024-04-05] VITALS: Ht 152.4 cm; Wt 69.6 kg
[~2024-04-05 13:30] MED LIST changes: +ALBU108A5 IN; +LEVO500T31 PO
--- NOTE | 2024-04-05 16:21 | ED.PDOC ---
SOB-HPI HPI Comments 83 year old female VÍCTOR presents to the ED with chief complaint of flu-like illness. EMS reports patient was at her neurologist's office when she begun to experience fatigue with associated green, productive cough and body aches. Patient relays that she has been experiencing these symptoms for about a week and requests pain medication to help with her body aches. Patient denies any SOB, chest pain, N/V/D, dizziness, fever, or chills. Chief Complaint: Body Pain Time Seen by MD: 16:17 Primary Care Provider: YOEL Reviewed notes: Nurses Notes, Lunch Cook Notes, Medications, Allergies Information Source: Patient, Emergency Med Personnel Mode of Arrival: EMS Severity: Moderate Timing: Days Duration: Since onset Context: At Rest PE Risk Factors: None History of: CHF Prehospital treatment: None Modifying Factors: Nothing Associated Signs and Symptoms: Cough, Other (Body aches, fatigue) If cough with SOB: Productive, Green Past Medical History PAST MEDICAL HISTORY: Arthritis, Asthma, CHF, DM, GERD, HTN Surgical History: , Hysterectomy, Pacemaker 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 HEEL COVERER MACHINE OPERATOR History Family History Family History: Unknown Social History Smoker: Non-Smoker Alcohol: Denies ETOH Use Drugs: Denies Drug Use Lives In: Home Constitutional: reports: fatigue, others (Body aches); denies: chills, diaphoresis, fever, malaise, sweats, weakness EENTM: denies: blurred vision, double vision, ear bleeding, ear discharge, ear drainage, ear pain, ear ringing, eye pain, eye redness, hearing loss, mouth pain, mouth swelling, nasal discharge, nose bleeding, nose congestion, nose pain, photophobia, tearing, throat pain, throat swelling, voice changes, others Respiratory: reports: cough; denies: hemoptysis, orthopnea, SOB at rest, shortness of breath, SOB with excertion, stridor, wheezing, others Cardiovascular: denies: chest pain, dizzy spells, diaphoresis, Dyspnea on exertion, edema, irregular heart beat, left arm pain, lightheadedness, palpitations, PND, syncope, others Gastrointestinal: denies: abdomen distended, abdominal pain, blood streaked bowels, constipated, diarrhea, dysphagia, difficulty swallowing, hematemesis, melena, nausea, poor appetite, poor fluid intake, rectal bleeding, rectal pain, vomiting, others Genitourinary: denies: abnormal vagina bleeding, burning, dyspareunia, dysuria, flank pain, frequency, hematuria, incontinence, pain, , vagina discharge, urgency, others Neurological: denies: dizziness, fainting, headache, left sided numbness, left sided weakness, numbness, paresthesia, pre-existing deficit, right sided numbness, right sided weakness, seizure, speech problems, tingling, tremors, weakness, others Musculoskeletal: denies: back pain, gout, joint pain, joint swelling, muscle pain, muscle stiffness, neck pain, others Integumetry: denies: bruises, change in color, change in hair/nails, dryness, laceration, lesions, lumps, rash, wounds, others Allergic/Immunocompromised: denies: Difficulty Healing, Frequent Infections, Hives, Itching, others Hematologic/Lymphatic: denies: anemia, blood clots, easy bleeding, easy bruising, swollen glands, others Endocrine: denies: excessive hunger, excessive sweating, excessive thirst, excessive urination, flushing, intolerance to cold, intolerance to heat, unexplained weight gain, unexplained weight loss, others Psychiatric: denies: anxiety, bipolar disorder, depression, hopeless, panic disorder, schizophrenia, sleepless, suicidal, others All Other Systems: Reviewed and Negative Physical Exam General Appearance: Moderate Distress, Normal HEENT: Normal ENT Inspection, PERRL/EOMI Neck: Full Range of Motion, Non-Tender, Normal, Normal Inspection Respiratory: Chest Non-Tender, Crackles, Expiration, Inspiration, No Accessory Muscle Use, No Respiratory Distress, Rhonchi Cardiovascular: No Edema, No JVD, No Murmur, No Gallop, Normal Peripheral Pulses, Regular Rate/Rhythm Breast Exam: Deferred Gastrointestinal: No Organomegaly, Non Tender, No Pulsatile Mass, Normal Bowel Sounds, Soft Genitalia: Deferred Pelvic: Deferred Rectal: Deferred Extremities: No calf tenderness, Normal capillary refill, Normal inspection, Normal range of motion, Non-tender, No pedal edema Musculoskeletal : Location: Bilateral Apperance: Normal, Other (Generalized body ache) Neurologic: Alert, 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 Was a procedure done?: No Differential Dx Differential Diagnosis: Bronchitis, CHF, Hypertension, Hyperventilation, Hyponatremia, Pneumonia, URI, Other (Flu syndrome) X-Ray, Labs, Meds, VS Vital Signs Date Time Temp Pulse Resp B/P (MAP) Pulse Ox O2 Delivery O2 Flow Rate FiO2 04/05/24 16:39 89 04/05/24 13:37 89 Lab Test 04/05/24 20:45 04/05/24 17:24 Range/Units Influenza Type A Antigen Negative Negative Influenza Type B Antigen Positive Negative SARS-CoV-2 Antigen (Rapid) Negative NEGATIVE White Blood Count 4.5 4.4-10.8 10^3/uL Red Blood Count 4.50 4.0-5.20 10^6/uL Hemoglobin 9.8 L 12.2-16.2 g/dL Hematocrit 31.4 L 36.0-46.0 % Mean Corpuscular Volume 69.7 L 80.0-100.0 fL Mean Corpuscular Hemoglobin 21.7 L 28.0-32.0 pg Mean Corpuscular Hemoglobin Concent 31.1 L 32.0-36.0 g/dL Red Cell Distribution Width 20.7 H 11.8-14.3 % Platelet Count 267 140-450 10^3/uL Mean Platelet Volume 8.9 6.9-10.8 fL Neutrophils (%) (Auto) 65.0 37.0-80.0 % Lymphocytes (%) (Auto) 21.7 10.0-50.0 % Monocytes (%) (Auto) 9.8 0.0-12.0 % Eosinophils (%) (Auto) 2.9 0.0-7.0 % Basophils (%) (Auto) 0.6 0.0-2.0 % Neutrophils # (Auto) 2.9 1.6-8.6 10 ^3/uL Lymphocytes # (Auto) 1.0 0.4-5.4 10 ^3/uL Monocytes # (Auto) 0.4 0-1.3 10 ^3/uL Eosinophils # (Auto) 0.1 0-0.8 10 ^3/uL Basophils # (Auto) 0 0-0.2 10 ^3/uL Nucleated Red Blood Cells 0.1 % Sodium Level 140 136-145 mmol/L Potassium Level 4.4 3.5-5.1 mmol/L Chloride Level 107 98-107 mmol/L Carbon Dioxide Level 20 20-31 mmol/L Anion Gap 13 5-15 Blood Urea Nitrogen 17 9-23 mg/dL Creatinine 0.73 0.550-1.02 mg/dL Glomerular Filtration Rate Calc 82 >90 mL/min BUN/Creatinine Ratio 23.3 H 10.0-20.0 Serum Glucose 100 74-106 mg/dL Calcium Level 9.4 8.7-10.4 mg/dL Magnesium Level 2.1 1.6-2.6 mg/dL Total Bilirubin 0.3 0.2-1.0 mg/dL Aspartate Amino Transferase (AST) 21 13-40 U/L Alanine Aminotransferase (ALT) 10 7-40 U/L Alkaline Phosphatase 95 46-116 U/L Troponin I High Sensitivity 7 </=34 ng/L Total Protein 6.2 5.7-8.2 g/dL Albumin 3.6 3.2-4.8 g/dL CHEST XR: FINDINGS: Lines and tubes: There is a left-sided dual lead pacemaker in place Chest: The heart size and pulmonary vasculature is within normal limits. Calcified plaque projects over the aortic arch No pleural effusion, pneumothorax, or consolidation. Linear perihilar and bibasilar opacities again noted The osseous structures are grossly intact. 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 Salvador follow Time of 1ST Reevaluation: 17:17 Reevaluation 1ST: Unchanged Time of 2ND Reevaluation: 18:00 Reevaluation 2ND: Unchanged Patient Education/Counseling: Diagnosis, Treatment, Prognosis Family Education/Counseling: Diagnosis, Treatment, Prognosis, No Family Present Departure 1 Departure Time of Disposition: 18:02 Impression: Primary Impression: Flu syndrome Additional Impressions: Body aches Lung fibrosis Hemidiaphragmatic eventration Influenza Disposition: 30 STILL A PATIENT Condition: Fair Additional Instructions: ED DISCHARGE INSTRUCTIONS Instructions: Please read all instructions provided in this packet carefully. Although you have been discharged from the Emergency Department, this does not mean that you have a "clean bill of health". Is possible that you are in the process of developing a serious illness. This is why you must return to the ED without fail if any new or worsening symptoms (especially if your symptoms include chest pain, trouble breathing, abdominal pain, fever, headache, confusion, trouble seeing, or trouble walking) It is also very important that you see a primary care doctor within the next 3-5 days to follow up. If you are unable to get an appointment, return to the ED for re-evaluation. Influenza (Flu): Care Instructions Influenza (flu) is an infection in the lungs and breathing passages. It is caused by the influenza virus. There are different strains, or types, of the flu virus from year to year. Unlike the common cold, the flu comes on suddenly and the symptoms can be more severe. These symptoms include a cough, congestion, fever, chills, fatigue, aches, and pains. These symptoms may last for a few weeks. Although the flu can make you feel very sick, it usually doesn't cause serious health problems. Home treatment is usually all you need for flu symptoms. But your doctor may prescribe antiviral medicine to prevent other health problems, such as pneumonia, from developing. The risk of other health problems from the flu is highest for young children (under 2), older adults (over 65), women, and people with long-term health conditions. Follow-up care is a castillo part of your treatment and safety. Be sure to make and go to all appointments, and call your doctor if you are having problems. It's also a good idea to know your test results and keep a list of the medicines you take. How can you care for yourself at home? Get plenty of rest. Drink plenty of fluids. If you have to limit fluids because of a health problem, talk with your doctor before you increase the amount of fluids you drink. Take an [id number] pain medicine if needed, such as acetaminophen (Tylenol), ibuprofen (Advil, Motrin), or naproxen (Aleve), to relieve fever, headache, and muscle aches. Be safe with medicines. Read and follow all instructions on the label. No one younger than 20 should take aspirin. It has been linked to Rogelio syndrome, a serious illness. Take any prescribed medicine exactly as directed. Do not smoke. Smoking can make the flu worse. If you need help quitting, talk to your doctor about stop-smoking programs and medicines. These can increase your chances of quitting for good. If the skin around your nose and lips becomes sore, put some petroleum jelly (such as Vaseline) on the area. To ease coughing: Suck on cough drops or plain, hard candy. Try an pchw-vjp-fwncrhe cough or cold medicine. Read and follow all instructions on the label. Raise your head at night with an extra pillow. This may help you rest if coughing keeps you awake. To avoid spreading the flu Wash your hands regularly, and keep your hands away from your face. Stay home from school, work, and other public places until you are feeling better and your fever has been gone for at least 24 hours. The fever needs to have gone away on its own without the help of medicine. Ask people living with you to talk to their doctors about preventing the flu. They may get antiviral medicine to keep from getting the flu from you. To prevent the flu in the future, get the flu vaccine every fall. Encourage people living with you to get the vaccine. Cover your mouth when you cough or sneeze. If you can, cough or sneeze into the bend of your elbow, not your hands. When should you call for help? Call 911 anytime you think you may need emergency care. For example, call if: You have severe trouble breathing. You have a seizure. Call your doctor now or seek immediate medical care if: You have trouble breathing. You have a fever with a stiff neck or a severe headache. You have pain or pressure in your chest or belly. You have a fever or cough that returns after getting better. You feel very sleepy, dizzy, or confused. You are not urinating. You have severe muscle pain. You have severe weakness, or you are unsteady. You have medical conditions that are getting worse. Watch closely for changes in your health, and be sure to contact your doctor if: You do not get better as expected. You are having a problem with your medicine. Critical Care Note Critical Care Time?: No Stability Stability form required: No Heart Score Heart Score: Heart Score Response (Comments) Value History Slightly Suspicious 0 EKG Normal 0 Age >65 2 Risk Factors 1 or 2 risk factors 1 Troponin N/A 0 Total 3 I personally scribed for ARNAUD BEACH MD ([email or web address]) on 04/05/24 at 16:21. Electronically submitted by Marissa Warren ([email or web address]). I personally scribed for ARNAUD BEACH MD ([email or web address]) on 04/05/24 at 17:33. Electronically submitted by Marissa Warren ([email or web address]). ARNAUD BEACH MD Apr 05, 2024 16:21 NACHO SALVADOR MD Apr 05, 2024 23:35
[2024-04-05] MEDS: SODIUM CHLORIDE 0.9% 1,000 ML IV ONE (16:30)
[2024-04-05] MEDS: KETOROLAC TROMETH 30 MG/ML 1ML VIAL IV ONE (16:30)
--- NOTE | 2024-04-05 17:24 | DVH ---
EXAM: XY CHEST TWO VIEWS ROUTINE CLINICAL HISTORY: cp coigh TECHNIQUE: Frontal and lateral views of the chest WID: COMPARISON: 06/25/2021 FINDINGS: Lines and tubes: There is a left-sided dual lead pacemaker in place Chest: The heart size and pulmonary vasculature is within normal limits. Calcified plaque projects over the aortic arch No pleural effusion, pneumothorax, or consolidation. Linear perihilar and bibasilar opacities again n oted The osseous structures are grossly intact. Multilevel thoracic spondylosis there is eventration of th e right hemidiaphragm IMPRESSION: Unchanged linear perihilar and bibasilar opacities which could reflect fibrosis / scarring
[2024-04-05 18:09] LABS: Basophils # (auto) 0 10 ^3/uL (0-0.2); Basophils % (auto) 0.6 % (0.0-2.0); Eosinophils # (auto) 0.1 10 ^3/uL (0-0.8); Mean Corpuscular Volume 69.7 fL (80.0-100.0); Monocytes # (auto) 0.4 10 ^3/uL (0-1.3); Nucleated Red Blood Cells % 0.1 %; White Blood Cell 4.5 10^3/uL (4.4-10.8)
[2024-04-05 18:12] LABS: Eosinophils % (auto) 2.9 % (0.0-7.0); Hematocrit 31.4 % (36.0-46.0); Hemoglobin 9.8 g/dL (12.2-16.2); Lymphocytes % (auto) 21.7 % (10.0-50.0); Mean Corpuscular Hemoglobin 21.7 pg (28.0-32.0); Mean Corpuscular Hgb Conc. 31.1 g/dL (32.0-36.0); Monocytes % (auto) 9.8 % (0.0-12.0); Neutrophils # (auto) 2.9 10 ^3/uL (1.6-8.6); Platelet Count (auto) 267 10^3/uL (140-450)
[2024-04-05 18:31] LABS: Alanine Aminotransferase 10 U/L (7-40); Albumin 3.6 g/dL (3.2-4.8); Alkaline Phosphatase 95 U/L (46-116); Anion Gap 13 (5-15); Aspartate Aminotransferase 21 U/L (13-40); BUN/Creatinine Ratio 23.3 (10.0-20.0); Blood Urea Nitrogen 17 mg/dL (9-23); Calcium 9.4 mg/dL (8.7-10.4); Carbon Dioxide 20 mmol/L (20-31); Glucose 100 mg/dL (74-106); Magnesium 2.1 mg/dL (1.6-2.6); Potassium 4.4 mmol/L (3.5-5.1); Sodium 140 mmol/L (136-145)
[2024-04-05 18:32] LABS: Bilirubin, Total 0.3 mg/dL (0.2-1.0); Total Protein 6.2 g/dL (5.7-8.2)
[2024-04-05 18:39] LABS: Chloride 107 mmol/L (98-107); Red Cell Distribution Width 20.7 % (11.8-14.3)
--- NOTE | 2024-04-05 18:58 | ECG ---
[facility] Test Date: 2024-04-05 Test Time: 13:34:12 Pat Name: PRAMOD MARR Department: ED Room: 1009-ER Gender: F Paper Counter: JAYLAN : [id number] Requested By: EMERGENCY EMERGENCY Order Number: [id number] Reading MD: Broderick Ley Measurements Intervals [place] Rate: 89 P: 59 WI: 160 QRS: 71 QRSD: 119 T: -84 QT: 407 QTc: 496 Interpretive Statements Sinus rhythm Atrial premature complex Incomplete left bundle branch block Electronically Signed On 04-06-2024 12:04:49 PST by Broderick Ley Please click the below link to view image of tracing.
[2024-04-05 21:19] LABS: COVID19 ANTIGEN SOFIA FIA NEGATIVE (NEGATIVE)
[2024-04-05 21:23] LABS: Rapid Influenza A Negative (Negative)
[2024-04-05 21:25] LABS: Rapid Influenza B Positive (Negative)
[2024-04-05 23:31] VITALS: PULSE 99; RESP 18; O2SAT 97
[2024-04-06] MEDS ORDERED: ALBUTEROL SULF 2.5 MG/0.5ML(0.5%) NEB SOLN NEB PRN ×2
[2024-04-06 00:30] VITALS: BP 106/58; PULSE 99; RESP 18; TEMP 98.6; O2SAT 97
[2024-04-06] MEDS: OSELTAMIVIR 75 MG CAP PO ONE (01:30)
--- NOTE | 2024-04-06 04:15 | DVHHP2 ---
History of Present Illness Reason for Visit: Flu-like symptoms History of Present Illness 83-year-old female presents for evaluation of flu-like symptoms. Patient presents with a two day history of flu-like symptoms. She reports fatigue with associated body aches and a nonproductive cough. Reports occasional chills. No fever. Denies cardiac or respiratory complaints. Past Medical History CHF, asthma, hypertension, carried Past Surgical History Hysterectomy, pacemaker and Family History Noncontributory Smoke: No ALCOHOL: none Drugs: None Review of Systems Review of Systems Review of systems are currently negative otherwise addressed in HPI. Allergies: Coded Allergies: Penicillins (Verified Allergy, Unknown, 01/26/21) Sulfa Antibiotics (Verified Allergy, Unknown, 01/26/21) Medications Current Medications Medications Dose Ordered Sig/Jerica Route Start Time Stop Time Status Last Admin Dose Admin Oseltamivir Phosphate 75 mg Q12HR PO 04/06/24 10:00 04/11/24 09:59 UNV Valsartan 160 mg DAILY PO 04/06/24 10:00 Pantoprazole Sodium 40 mg DAILY@0600 PO 04/06/24 06:00 Albuterol 2.5 mg Q6HPRN PRN NEB 04/06/24 00:00 Ondansetron HCl 4 mg Q4HP PRN IV 04/06/24 00:00 Enoxaparin Sodium 40 mg DAILY SC 04/06/24 10:00 UNV Acetaminophen 650 mg Q6HP PRN PO 04/06/24 00:00 Exam Vital Signs Vital Signs Date Time Temp Pulse Resp B/P (MAP) Pulse Ox O2 Delivery O2 Flow Rate FiO2 04/06/24 00:30 98.6 99 18 106/58 97 21 98.6 04/05/24 23:31 Room Air* 0 Exam Gen: 83-year-old female in no apparent distress. Skin: Warm, dry, normal color and texture, no rash. HEENT: Normocephalic atraumatic, mucous membranes moist and pink. Neck: Cervical and supraclavicular nodes normal without enlargement, trachea is midline, thyroid gland is normal without masses. Pulmonary: Clear to auscultation and percussion bilaterally. Cardiac: Regular rate and rhythm. No murmur Abdomen: Soft, nontender, nondistended, bowel sounds present all 4 quadrants, no guarding, no rigidity, no organomegaly. Extremities: No cyanosis, clubbing, no edema Neuro: Cranial nerves II through XII grossly intact, normal affect and speech, no focal motor deficits. Labs/Xrays ORDERING PHYSICIAN: ARNAUD BEACH MD PROCEDURE(s): CXR2 - CHEST TWO VIEWS ROUTINE REASON: rio monroy ORDER NUMBER(s): [id number], ACCESSION NUMBER(s): [id number] EXAM: XY CHEST TWO VIEWS ROUTINE CLINICAL HISTORY: [facility] TECHNIQUE: Frontal and lateral views of the chest WID: COMPARISON: 06/25/2021 FINDINGS: Lines and tubes: There is a left-sided dual lead pacemaker in place Chest: The heart size and pulmonary vasculature is within normal limits. Calcified plaque projects over the aortic arch No pleural effusion, pneumothorax, or consolidation. Linear perihilar and bibasilar opacities again noted The osseous structures are grossly intact. Multilevel thoracic spondylosis there is eventration of the right hemidiaphragm IMPRESSION: Unchanged linear perihilar and bibasilar opacities which could reflect fibrosis / scarring Labs Test 04/05/24 20:45 04/05/24 17:24 Range/Units Influenza Type A Antigen Negative Negative Influenza Type B Antigen Positive Negative SARS-CoV-2 Antigen (Rapid) Negative NEGATIVE White Blood Count 4.5 4.4-10.8 10^3/uL Red Blood Count 4.50 4.0-5.20 10^6/uL Hemoglobin 9.8 L 12.2-16.2 g/dL Hematocrit 31.4 L 36.0-46.0 % Mean Corpuscular Volume 69.7 L 80.0-100.0 fL Mean Corpuscular Hemoglobin 21.7 L 28.0-32.0 pg Mean Corpuscular Hemoglobin Concent 31.1 L 32.0-36.0 g/dL Red Cell Distribution Width 20.7 H 11.8-14.3 % Platelet Count 267 140-450 10^3/uL Mean Platelet Volume 8.9 6.9-10.8 fL Neutrophils (%) (Auto) 65.0 37.0-80.0 % Lymphocytes (%) (Auto) 21.7 10.0-50.0 % Monocytes (%) (Auto) 9.8 0.0-12.0 % Eosinophils (%) (Auto) 2.9 0.0-7.0 % Basophils (%) (Auto) 0.6 0.0-2.0 % Neutrophils # (Auto) 2.9 1.6-8.6 10 ^3/uL Lymphocytes # (Auto) 1.0 0.4-5.4 10 ^3/uL Monocytes # (Auto) 0.4 0-1.3 10 ^3/uL Eosinophils # (Auto) 0.1 0-0.8 10 ^3/uL Basophils # (Auto) 0 0-0.2 10 ^3/uL Nucleated Red Blood Cells 0.1 % Sodium Level 140 136-145 mmol/L Potassium Level 4.4 3.5-5.1 mmol/L Chloride Level 107 98-107 mmol/L Carbon Dioxide Level 20 20-31 mmol/L Anion Gap 13 5-15 Blood Urea Nitrogen 17 9-23 mg/dL Creatinine 0.73 0.550-1.02 mg/dL Glomerular Filtration Rate Calc 82 >90 mL/min BUN/Creatinine Ratio 23.3 H 10.0-20.0 Serum Glucose 100 74-106 mg/dL Calcium Level 9.4 8.7-10.4 mg/dL Magnesium Level 2.1 1.6-2.6 mg/dL Total Bilirubin 0.3 0.2-1.0 mg/dL Aspartate Amino Transferase (AST) 21 13-40 U/L Alanine Aminotransferase (ALT) 10 7-40 U/L Alkaline Phosphatase 95 46-116 U/L Troponin I High Sensitivity 7 </=34 ng/L Total Protein 6.2 5.7-8.2 g/dL Albumin 3.6 3.2-4.8 g/dL Assessment/Plan Assessment/Plan Assessment Viral syndrome Influenza Pulmonary fibrosis Plan Admit the patient to [facility] to the hospitalist [facility] Tamiflu Resume home medications Continue treatment orders. Plan discussed with: Patient My Orders Orders - ANA LILIA MARTÍNEZ Procedure Category Date Status Time Admit ADMIT 04/05/24 Transmitted 23:48 Oseltamivir 75mg PHA 04/06/24 Pending Capsule (Tamiflu 75mg 10:00 Valsartan (Diovan) PHA 04/06/24 In Process 10:00 Pantoprazole Tablet PHA 04/06/24 In Process (Protonix Tablet) 06:00 Albuterol Medneb PHA 04/06/24 In Process (Ventolin Medneb) 00:00 Basic Metabolic Panel LAB 04/06/24 Logged 04:00 Ondansetron Hcl PHA 04/06/24 In Process (Zofran) 00:00 Enoxaparin Sodium PHA 04/06/24 Pending (Lovenox) 10:00 Cardiac DIET 04/06/24 Transmitted Diet-2gna,Lofat,Lochol Breakfast Condition: Stable IVÁN 04/05/24 In Process 23:56 Acetaminophen Tablet PHA 04/06/24 In Process (Tylenol Tablet) 00:00 Bedrest With Bathroom IVÁN 04/05/24 In Process Privileg 23:56 Date of Service: Apr 05, 2024 Billing Provider: ANA LILIA MARTÍNEZ Common Visit Codes: [id number] INP/OBS CARE (HIGH) ANA LILIA MARTÍNEZ Apr 06, 2024 04:15
[2024-04-06] MEDS: PANTOPRAZOLE 40 MG TAB PO SCH (06:22)
[2024-04-06] MEDS: ACETAMINOPHEN 325 MG TAB PO PRN (06:22)
[2024-04-06] MEDS: LORazepam 2MG/ML-1ML VIAL IV ONE (07:38)
[2024-04-06 07:51] LABS: Potassium 4.2 mmol/L (3.5-5.1); Sodium 140 mmol/L (136-145)
[2024-04-06 07:52] LABS: Anion Gap 9 (5-15); Calcium 9.4 mg/dL (8.7-10.4); Carbon Dioxide 23 mmol/L (20-31)
[2024-04-06 07:53] LABS: Chloride 108 mmol/L (98-107)
[2024-04-06 07:57] LABS: BUN/Creatinine Ratio 17.8 (10.0-20.0); Blood Urea Nitrogen 13 mg/dL (9-23); Glucose 105 mg/dL (74-106)
[2024-04-06 08:00] VITALS: PULSE 87; RESP 16; O2SAT 96
[2024-04-06 09:00] VITALS: O2SAT 96
[2024-04-06] MEDS ORDERED: OSELTAMIVIR 75 MG CAP PO SCH (10:00)
[2024-04-06] MEDS: VALSARTAN 80 MG TAB PO SCH (10:44)
[2024-04-06] MEDS: ENOXAPARIN SOD 40 MG/0.4 ML SYRINGE SC SCH (10:47)
[2024-04-06] MEDS: OSELTAMIVIR 30 MG CAP PO SCH (10:51)
--- NOTE | 2024-04-06 12:34 | DVHPN2 ---
Subjective Shortness of breath Reviewed: Care Plan, H&P, Labs, Medications, Previous Orders, Radiology Changes from previous H/P or p: No Changes Objective Vitals Vital Signs Date Time Temp Pulse Resp B/P (MAP) Pulse Ox O2 Delivery O2 Flow Rate FiO2 04/06/24 10:45 89 16 96/54 (68) 96 04/06/24 09:00 Room Air 0.0 04/06/24 09:00 21 04/06/24 08:00 98.3 98.3 Medications Current Medications Medications Dose Ordered Sig/Jerica Route Start Time Stop Time Status Last Admin Dose Admin Valsartan 160 mg DAILY PO 04/06/24 10:00 Pantoprazole Sodium 40 mg DAILY@0600 PO 04/06/24 06:00 04/06/24 06:22 40 MG Albuterol 2.5 mg Q6HPRN PRN NEB 04/06/24 00:00 Ondansetron HCl 4 mg Q4HP PRN IV 04/06/24 00:00 Enoxaparin Sodium 40 mg DAILY SC 04/06/24 10:00 Acetaminophen 650 mg Q6HP PRN PO 04/06/24 00:00 04/06/24 06:22 650 MG Oseltamivir Phosphate 30 mg Q12HR PO 04/06/24 10:00 04/10/24 22:01 04/06/24 10:51 30 MG Laboratory Results Laboratory Tests 04/05/24 17:24 04/06/24 07:23 Chemistry Test 04/05/24 17:24 04/06/24 07:23 Albumin 3.6 g/dL (3.2-4.8) Calcium Level 9.4 mg/dL (8.7-10.4) 9.4 mg/dL (8.7-10.4) Magnesium Level 2.1 mg/dL (1.6-2.6) Total Protein 6.2 g/dL (5.7-8.2) LFT Test 04/05/24 17:24 Alanine Aminotransferase (ALT) 10 U/L (7-40) Alkaline Phosphatase 95 U/L (46-116) Aspartate Amino Transferase (AST) 21 U/L (13-40) Total Bilirubin 0.3 mg/dL (0.2-1.0) Labs and/or images reviewed: Labs reviewed by me, Image(s) reviewed by me Assessment/Plan Assessment/Plan Acute Hypoxic respiratory failure: Oxygen by nasal cannula Acute influenza type B: Tamiflu Pulmonary fibrosis Hypertension Acute on chronic congestive heart failure : Lasix History of asthma Presence of pacemaker Time spent 55 minutes Patient is full code Advanced care planning time 20 minutes Plan discussed with: Patient Date of Service: Apr 06, 2024 Billing Provider: MOOSE TRAN MD Common Visit Codes: [id number] INP/OBS CARE(HIGH) MOOSE TRAN MD Apr 06, 2024 12:34
--- NOTE | 2024-04-06 15:54 | DVHINCON2 ---
Date of service: Apr 05, 2024 Referring Physician Nik Reason for Consultation Medical management History of Present Illness This is an 83 year old female with a PMH of Arthritis, Asthma, CHF, DM, GERD, HTN who presents to the ED with a complaint of flu-like illness x1 week. EMS reports patient was at her neurologist's office for a follow-up appointment when she begun to experience fatigue with associated productive cough with green phlegm and body aches. Patient is requesting pain medication to help with her body aches. HGB 9.8, HCT 31.4, CL 108. Influenza A is negative. COVID is negative. Influenza B returned positive. Chest x-ray showed unchanged linear perihilar and bibasilar opacities which could reflect fibrosis / scarring. Patient was admitted to the hospital. I am asked to consult on this patient. Family History: Cardiomegaly G8 SISTER Tumor G8 FATHER Allergies: Coded Allergies: Penicillins (Verified Allergy, Unknown, 01/26/21) Sulfa Antibiotics (Verified Allergy, Unknown, 01/26/21) Home Meds Active Scripts Albuterol Sulfate (Albuterol Sulfate Hfa) 108 Mcg/Act Aer, 108 MCG IN Q6HPRN PRN, #1 AER Prov:GLORIA MYLES MD 06/26/21 Levofloxacin (Levaquin) 500 Mg Tab, 500 MG PO BID, #14 TAB Prov:GLORIA MYLES MD 06/26/21 Prednisone (Prednisone) 20 Mg Tab, 20 MG PO BID for 4 Days, #8 MG Prov:TATA JOHANSEN MD 05/28/21 Albuterol Sulfate (VENTOLIN MDI) 90 Mcg Ih, 90 MCG IN BID for 7 Days, #1 INH Prov:TATA JOHANSEN MD 05/28/21 Azithromycin (Azithromycin) 1 Gm Pow, 1 PACK PO ONCE, #1 PACK Prov:TATA JOHANSEN MD 05/28/21 Current Medications Current Medications Medications (Trade) Dose Ordered Sig/Jerica Route PRN Reason Start Time Stop Time Status Last Admin Oseltamivir Phosphate (Tamiflu 75MG Capsule) 75 mg Q12HR PO 04/06/24 10:00 04/06/24 09:20 DC Valsartan (Diovan) 160 mg DAILY PO 04/06/24 10:00 Pantoprazole Sodium (Protonix Tablet) 40 mg DAILY@0600 PO 04/06/24 06:00 04/06/24 06:22 Albuterol (Ventolin Medneb) 2.5 mg Q6HPRN PRN NEB SHORTNESS OF BREATH 04/06/24 00:00 Albuterol (Ventolin Medneb) 2.5 mg Q6HPRN PRN NEB SHORTNESS OF BREATH 04/06/24 00:00 04/06/24 00:27 DC Ondansetron HCl (Zofran) 4 mg Q4HP PRN IV NAUSEA / VOMITING 04/06/24 00:00 Enoxaparin Sodium (Lovenox) 40 mg DAILY SC 04/06/24 10:00 Acetaminophen (Tylenol Tablet) 650 mg Q6HP PRN PO PAIN SCALE 1-3 OR TEMP>100.4 04/06/24 00:00 04/06/24 06:22 Oseltamivir Phosphate (Tamiflu 30MG Capsule) 30 mg Q12HR PO 04/06/24 10:00 04/10/24 22:01 04/06/24 10:51 Review of Systems Constitutional: reports: fatigue, others (Body aches); denies: chills, diaphoresis, fever, malaise, sweats, weakness EENTM: denies: blurred vision, double vision, ear bleeding, ear discharge, ear drainage, ear pain, ear ringing, eye pain, eye redness, hearing loss, mouth pain, mouth swelling, nasal discharge, nose bleeding, nose congestion, nose pain, photophobia, tearing, throat pain, throat swelling, voice changes, others Respiratory: reports: cough; denies: hemoptysis, orthopnea, SOB at rest, shortness of breath, SOB with excertion, stridor, wheezing, others Cardiovascular: denies: chest pain, dizzy spells, diaphoresis, Dyspnea on exertion, edema, irregular heart beat, left arm pain, lightheadedness, palpitations, PND, syncope, others Gastrointestinal: denies: abdomen distended, abdominal pain, blood streaked bowels, constipated, diarrhea, dysphagia, difficulty swallowing, hematemesis, melena, nausea, poor appetite, poor fluid intake, rectal bleeding, rectal pain, vomiting, others Genitourinary: denies: abnormal vagina bleeding, burning, dyspareunia, dysuria, flank pain, frequency, hematuria, incontinence, pain, , vagina discharge, urgency, others Neurological: denies: dizziness, fainting, headache, left sided numbness, left sided weakness, numbness, paresthesia, pre-existing deficit, right sided numbness, right sided weakness, seizure, speech problems, tingling, tremors, weakness, others Musculoskeletal: denies: back pain, gout, joint pain, joint swelling, muscle pain, muscle stiffness, neck pain, others Integumetry: denies: bruises, change in color, change in hair/nails, dryness, laceration, lesions, lumps, rash, wounds, others Allergic/Immunocompromised: denies: Difficulty Healing, Frequent Infections, Hives, Itching, others Hematologic/Lymphatic: denies: anemia, blood clots, easy bleeding, easy bruising, swollen glands, others Endocrine: denies: excessive hunger, excessive sweating, excessive thirst, excessive urination, flushing, intolerance to cold, intolerance to heat, unexplained weight gain, unexplained weight loss, others Psychiatric: denies: anxiety, bipolar disorder, depression, hopeless, panic disorder, schizophrenia, sleepless, suicidal, others All Other Systems: Reviewed and Negative Vital Signs Vital Signs Date Time Temp Pulse Resp B/P (MAP) Pulse Ox O2 Delivery O2 Flow Rate FiO2 04/06/24 10:45 89 16 96/54 (68) 96 04/06/24 09:00 Room Air 0.0 04/06/24 09:00 21 04/06/24 08:00 98.3 98.3 Physical Exam GENERAL: Awake, alert, oriented. LUNGS: Clear. CARDIOVASCULAR: Heart sounds are good. ABDOMEN: Soft. Labs/Diagnostic Data Labs Test 04/06/24 07:23 04/05/24 20:45 04/05/24 17:24 Range/Units Sodium Level 140 136-145 mmol/L Potassium Level 4.2 3.5-5.1 mmol/L Chloride Level 108 H 98-107 mmol/L Carbon Dioxide Level 23 20-31 mmol/L Anion Gap 9 5-15 Blood Urea Nitrogen 13 9-23 mg/dL Creatinine 0.73 0.550-1.02 mg/dL Glomerular Filtration Rate Calc 82 >90 mL/min BUN/Creatinine Ratio 17.8 10.0-20.0 Serum Glucose 105 74-106 mg/dL Calcium Level 9.4 8.7-10.4 mg/dL Influenza Type A Antigen Negative Negative Influenza Type B Antigen Positive Negative SARS-CoV-2 Antigen (Rapid) Negative NEGATIVE White Blood Count 4.5 4.4-10.8 10^3/uL Red Blood Count 4.50 4.0-5.20 10^6/uL Hemoglobin 9.8 L 12.2-16.2 g/dL Hematocrit 31.4 L 36.0-46.0 % Mean Corpuscular Volume 69.7 L 80.0-100.0 fL Mean Corpuscular Hemoglobin 21.7 L 28.0-32.0 pg Mean Corpuscular Hemoglobin Concent 31.1 L 32.0-36.0 g/dL Red Cell Distribution Width 20.7 H 11.8-14.3 % Platelet Count 267 140-450 10^3/uL Mean Platelet Volume 8.9 6.9-10.8 fL Neutrophils (%) (Auto) 65.0 37.0-80.0 % Lymphocytes (%) (Auto) 21.7 10.0-50.0 % Monocytes (%) (Auto) 9.8 0.0-12.0 % Eosinophils (%) (Auto) 2.9 0.0-7.0 % Basophils (%) (Auto) 0.6 0.0-2.0 % Neutrophils # (Auto) 2.9 1.6-8.6 10 ^3/uL Lymphocytes # (Auto) 1.0 0.4-5.4 10 ^3/uL Monocytes # (Auto) 0.4 0-1.3 10 ^3/uL Eosinophils # (Auto) 0.1 0-0.8 10 ^3/uL Basophils # (Auto) 0 0-0.2 10 ^3/uL Nucleated Red Blood Cells 0.1 % Magnesium Level 2.1 1.6-2.6 mg/dL Total Bilirubin 0.3 0.2-1.0 mg/dL Aspartate Amino Transferase (AST) 21 13-40 U/L Alanine Aminotransferase (ALT) 10 7-40 U/L Alkaline Phosphatase 95 46-116 U/L Troponin I High Sensitivity 7 </=34 ng/L Total Protein 6.2 5.7-8.2 g/dL Albumin 3.6 3.2-4.8 g/dL Assessment Viral syndrome. Influenza. Pulmonary fibrosis. Plan/Recommendation I agree with your ongoing assessment and care of plan. DVT and GI prophylactics. Tamiflu. Additional plan as per the hospital course. A total of 45 minutes was spent reviewing the patient record, examining the patient, making a diagnostic and therapeutic plan, discussing this plan with m edical personnel, following up on diagnostic studies and following the patient for clinical stability excluding any and all procedures. At least 50% of this time was spent in direct, [id number] contact. Plan discussed with: Patient FARZAD DIALLO MD Apr 06, 2024 12:32
--- NOTE | 2024-04-06 15:57 | DVHPN2 ---
Progress Note - Dictate Date Seen: Apr 06, 2024 Medical Necessity Reason Pt with a Central, PICC or Fol: No Subjective Patient was seen and evaluated in follow up. Patient is complaining of cough. Patient receiving Tamiflu for treatment of Influenza B. Patient is afebrile. vital signs Vital Sign Date Time Temp Pulse Resp B/P (MAP) Pulse Ox O2 Delivery O2 Flow Rate FiO2 04/06/24 15:02 94 16 116/78 (91) 97 04/06/24 09:00 Room Air 0.0 04/06/24 09:00 21 04/06/24 08:00 98.3 98.3 medications Current Medications Medications Dose Ordered Sig/Jerica Route Start Time Stop Time Status Last Admin Dose Admin Valsartan 160 mg DAILY PO 04/06/24 10:00 Pantoprazole Sodium 40 mg DAILY@0600 PO 04/06/24 06:00 04/06/24 06:22 40 MG Albuterol 2.5 mg Q6HPRN PRN NEB 04/06/24 00:00 Ondansetron HCl 4 mg Q4HP PRN IV 04/06/24 00:00 Enoxaparin Sodium 40 mg DAILY SC 04/06/24 10:00 Acetaminophen 650 mg Q6HP PRN PO 04/06/24 00:00 04/06/24 06:22 650 MG Oseltamivir Phosphate 30 mg Q12HR PO 04/06/24 10:00 04/10/24 22:01 04/06/24 10:51 30 MG objective GENERAL: Awake, alert, oriented. LUNGS: Clear. CARDIOVASCULAR: Heart sounds are good. ABDOMEN: Soft. laboratory and microbiology Laboratory Tests 04/06/24 07:23 04/05/24 17:24 Test 04/06/24 07:23 Range/Units Serum Glucose 105 74-106 mg/dL Problem List Acute Hypoxic respiratory failure. Influenza type B. Pulmonary fibrosis Hypertension. Acute on chronic congestive heart failure. History of asthma. Presence of pacemaker. Assessment/Plan Continued all current supportive medical care. DVT and GI prophylactics. Tamiflu. Additional plan as per the hospital course. Plan discussed with: Patient FARZAD DIALLO MD Apr 06, 2024 15:54
[2024-04-06 19:30] VITALS: O2SAT 96
[2024-04-06 20:13] VITALS: PULSE 91; RESP 20; O2SAT 94
[2024-04-07] VITALS (9 sets, daily range): BP systolic 102–124; BP diastolic 46–70; PULSE 53–90; RESP 18–22; TEMP 97.4–98; O2SAT 91–99
--- NOTE | 2024-04-07 09:51 | DVHPN2 ---
Subjective Shortness of breath Reviewed: Care Plan, H&P, Labs, Medications, Previous Orders, Radiology Changes from previous H/P or p: No Changes Objective Vitals Vital Signs Date Time Temp Pulse Resp B/P (MAP) Pulse Ox O2 Delivery O2 Flow Rate FiO2 04/07/24 09:22 102/48 04/07/24 08:53 97.8 90 22 99 97.8 04/07/24 08:01 Room Air* 0 21 Medications Current Medications Medications Dose Ordered Sig/Jerica Route Start Time Stop Time Status Last Admin Dose Admin Valsartan 160 mg DAILY PO 04/06/24 10:00 Pantoprazole Sodium 40 mg DAILY@0600 PO 04/06/24 06:00 04/07/24 06:48 40 MG Albuterol 2.5 mg Q6HPRN PRN NEB 04/06/24 00:00 Ondansetron HCl 4 mg Q4HP PRN IV 04/06/24 00:00 Enoxaparin Sodium 40 mg DAILY SC 04/06/24 10:00 Acetaminophen 650 mg Q6HP PRN PO 04/06/24 00:00 04/06/24 06:22 650 MG Oseltamivir Phosphate 30 mg Q12HR PO 04/06/24 10:00 04/10/24 22:01 04/06/24 23:04 30 MG Laboratory Results Laboratory Tests 04/05/24 17:24 04/06/24 07:23 Labs and/or images reviewed: Labs reviewed by me, Image(s) reviewed by me Assessment/Plan Assessment/Plan Acute Hypoxic respiratory failure: Oxygen by nasal cannula Acute influenza type B: Tamiflu Pulmonary fibrosis Hypertension Acute on chronic congestive heart failure : Lasix, cardiology consult by Dr. Herrera appreciated History of asthma Presence of pacemaker Time spent 55 minutes Patient is full code Advanced care planning time 20 minutes Patient came from [facility] Plan discussed with: Patient Date of Service: Apr 07, 2024 Billing Provider: MOOSE TRAN MD Common Visit Codes: [id number] INP/OBS CARE(HIGH) MOOSE TRAN MD Apr 07, 2024 09:51
[2024-04-07] MEDS ORDERED: PANT40T PO (10:46)
[2024-04-07] MEDS ORDERED: QUET1TAB11 PO (10:46)
[2024-04-07] MEDS ORDERED: VALS1TAB58 PO (10:46)
[2024-04-07] MEDS: HYDROcodone-ACET 5/325MG TAB PO PRN (13:46)
--- NOTE | 2024-04-07 13:56 | DVHPN2 ---
Progress Note - Dictate Date Seen: Apr 07, 2024 Medical Necessity Reason Pt with a Central, PICC or Fol: No Subjective Patient was seen and evaluated in follow up. Patient is complaining of cough with SOB. Patient is diuresing with Lasix. Patient denies any cardiac symptoms. vital signs Vital Sign Date Time Temp Pulse Resp B/P (MAP) Pulse Ox O2 Delivery O2 Flow Rate FiO2 04/07/24 09:22 102/48 04/07/24 09:07 95 Room Air 0.0 04/07/24 09:07 21 04/07/24 08:53 97.8 90 22 97.8 medications Current Medications Medications Dose Ordered Sig/Jerica Route Start Time Stop Time Status Last Admin Dose Admin Valsartan 160 mg DAILY PO 04/06/24 10:00 Pantoprazole Sodium 40 mg DAILY@0600 PO 04/06/24 06:00 04/07/24 06:48 40 MG Albuterol 2.5 mg Q6HPRN PRN NEB 04/06/24 00:00 Ondansetron HCl 4 mg Q4HP PRN IV 04/06/24 00:00 Enoxaparin Sodium 40 mg DAILY SC 04/06/24 10:00 Acetaminophen 650 mg Q6HP PRN PO 04/06/24 00:00 04/06/24 06:22 650 MG Oseltamivir Phosphate 30 mg Q12HR PO 04/06/24 10:00 04/10/24 22:01 04/07/24 10:45 30 MG objective GENERAL: Awake, alert, oriented. LUNGS: Clear. CARDIOVASCULAR: Heart sounds are good. ABDOMEN: Soft. laboratory and microbiology Laboratory Tests 04/06/24 07:23 04/05/24 17:24 Test 04/06/24 07:23 Range/Units Serum Glucose 105 74-106 mg/dL Problem List Acute Hypoxic respiratory failure. Influenza type B. Pulmonary fibrosis Hypertension. Acute on chronic congestive heart failure. History of asthma. Presence of pacemaker. Assessment/Plan Continued all current supportive medical care. DVT and GI prophylactics. Tamiflu. Additional plan as per the hospital course. Plan discussed with: Patient FARZAD DIALLO MD Apr 07, 2024 11:54
[2024-04-07] MEDS: ONDANSETRON HCL 4 MG/2 ML VIAL IV PRN (17:24)
[2024-04-08] VITALS (10 sets, daily range): BP systolic 104–124; BP diastolic 49–75; PULSE 75–89; RESP 16–18; TEMP 97.9–98.6; O2SAT 94–97
--- NOTE | 2024-04-08 08:38 | DVHPN2 ---
Subjective Shortness of breath Reviewed: Care Plan, H&P, Labs, Medications, Previous Orders, Radiology Changes from previous H/P or p: No Changes Objective Vitals Vital Signs Date Time Temp Pulse Resp B/P (MAP) Pulse Ox O2 Delivery O2 Flow Rate FiO2 04/08/24 08:00 97 Room Air* 0 21 04/08/24 05:00 97.9 85 16 124/70 (88) 97.9 Intake/Output Intake and Output 04/08/24 07:00 Intake Total 815 ml Balance 815 ml Intake Oral 815 ml # Voids 7 # Bowel Movements 4 Medications Current Medications Medications Dose Ordered Sig/Jerica Route Start Time Stop Time Status Last Admin Dose Admin Valsartan 160 mg DAILY PO 04/06/24 10:00 Pantoprazole Sodium 40 mg DAILY@0600 PO 04/06/24 06:00 04/08/24 05:47 40 MG Albuterol 2.5 mg Q6HPRN PRN NEB 04/06/24 00:00 Ondansetron HCl 4 mg Q4HP PRN IV 04/06/24 00:00 04/07/24 17:24 4 MG Enoxaparin Sodium 40 mg DAILY SC 04/06/24 10:00 Acetaminophen 650 mg Q6HP PRN PO 04/06/24 00:00 04/08/24 07:57 650 MG Oseltamivir Phosphate 30 mg Q12HR PO 04/06/24 10:00 04/10/24 22:01 04/07/24 22:26 30 MG Acetaminophen/ Hydrocodone Bitart 1 tab Q6HPRN PRN PO 04/07/24 13:15 04/08/24 04:19 1 TAB Laboratory Results Laboratory Tests 04/05/24 17:24 04/06/24 07:23 Labs and/or images reviewed: Labs reviewed by me, Image(s) reviewed by me Assessment/Plan Assessment/Plan Acute Hypoxic respiratory failure: Oxygen by nasal cannula Acute influenza type B: Tamiflu Pulmonary fibrosis Hypertension Acute on chronic congestive heart failure : Lasix, cardiology consult by Dr. Herrera appreciated History of asthma Presence of pacemaker Time spent 45 minutes Patient is full code Advanced care planning time 20 minutes Patient came from [facility] Plan discussed with: Patient My Orders Orders - MOOSE TRAN MD Procedure Category Date Status Time * Wound Consult CONS 12/6/24 Transmitted Hydrocodone-Acet PHA 04/07/24 In Process 5/325mg Tab ([place] 13:15 Pt Request For Service PT 04/07/24 Logged 13:43 Date of Service: Apr 08, 2024 Billing Provider: MOOSE TRAN MD Common Visit Codes: [id number] INP/OBS CARE(HIGH) MOOSE TRAN MD Apr 08, 2024 08:38
--- NOTE | 2024-04-08 12:56 | DVHPN2 ---
Progress Note - Dictate Date Seen: Apr 08, 2024 Medical Necessity Reason Pt with a Central, PICC or Fol: No Subjective Patient was seen and evaluated in follow up. Sitter is at bedside. Patient is complaining of cough with SOB. Patient is continued on Tamiflu. Patient is refusing PT. vital signs Vital Sign Date Time Temp Pulse Resp B/P (MAP) Pulse Ox O2 Delivery O2 Flow Rate FiO2 04/08/24 09:50 112/49 04/08/24 09:02 94 Room Air 0.0 04/08/24 09:02 21 04/08/24 09:00 98.1 82 16 98.1 Total Intake and Output 04/07/24 04/07/24 04/08/24 15:00 23:00 07:00 Intake Total 440 ml 375 ml Balance 440 ml 375 ml medications Current Medications Medications Dose Ordered Sig/Jerica Route Start Time Stop Time Status Last Admin Dose Admin Valsartan 160 mg DAILY PO 04/06/24 10:00 Pantoprazole Sodium 40 mg DAILY@0600 PO 04/06/24 06:00 04/08/24 05:47 40 MG Albuterol 2.5 mg Q6HPRN PRN NEB 04/06/24 00:00 Ondansetron HCl 4 mg Q4HP PRN IV 04/06/24 00:00 04/07/24 17:24 4 MG Enoxaparin Sodium 40 mg DAILY SC 04/06/24 10:00 Acetaminophen 650 mg Q6HP PRN PO 04/06/24 00:00 04/08/24 07:57 650 MG Oseltamivir Phosphate 30 mg Q12HR PO 04/06/24 10:00 04/10/24 22:01 04/08/24 09:50 30 MG Acetaminophen/ Hydrocodone Bitart 1 tab Q6HPRN PRN PO 04/07/24 13:15 04/08/24 04:19 1 TAB objective GENERAL: Awake, alert, oriented. LUNGS: Clear. CARDIOVASCULAR: Heart sounds are good. ABDOMEN: Soft. laboratory and microbiology Laboratory Tests 04/06/24 07:23 04/05/24 17:24 Test 04/06/24 07:23 Range/Units Serum Glucose 105 74-106 mg/dL Problem List Acute hypoxic respiratory failure. Influenza type B. Pulmonary fibrosis Hypertension. Acute on chronic congestive heart failure. History of asthma. Presence of pacemaker. Assessment/Plan Continued all current supportive medical care. DVT and GI prophylactics. Tamiflu. Additional plan as per the hospital course. Plan discussed with: Patient FARZAD DIALLO MD Apr 08, 2024 12:03
[2024-04-09 05:00] VITALS: BP 117/72; PULSE 88; RESP 18; TEMP 98.2; O2SAT 94
[2024-04-09 08:00] VITALS: O2SAT 94
--- NOTE | 2024-04-09 08:39 | DVHPN2 ---
Subjective Shortness of breath Reviewed: Care Plan, H&P, Labs, Medications, Previous Orders, Radiology Changes from previous H/P or p: No Changes Objective Vitals Vital Signs Date Time Temp Pulse Resp B/P (MAP) Pulse Ox O2 Delivery O2 Flow Rate FiO2 04/09/24 05:00 98.2 88 18 117/72 (87) 94 98.2 04/08/24 23:30 Room Air 0.0 04/08/24 23:30 21 Intake/Output Intake and Output 04/09/24 07:00 Intake Total 1040 ml Balance 1040 ml Intake Oral 1040 ml # Voids 7 Medications Current Medications Medications Dose Ordered Sig/Jerica Route Start Time Stop Time Status Last Admin Dose Admin Valsartan 160 mg DAILY PO 04/06/24 10:00 Pantoprazole Sodium 40 mg DAILY@0600 PO 04/06/24 06:00 04/09/24 05:59 40 MG Albuterol 2.5 mg Q6HPRN PRN NEB 04/06/24 00:00 Ondansetron HCl 4 mg Q4HP PRN IV 04/06/24 00:00 04/07/24 17:24 4 MG Enoxaparin Sodium 40 mg DAILY SC 04/06/24 10:00 Acetaminophen 650 mg Q6HP PRN PO 04/06/24 00:00 04/08/24 07:57 650 MG Oseltamivir Phosphate 30 mg Q12HR PO 04/06/24 10:00 04/10/24 22:01 04/08/24 21:45 30 MG Acetaminophen/ Hydrocodone Bitart 1 tab Q6HPRN PRN PO 04/07/24 13:15 04/09/24 06:00 1 TAB Laboratory Results Laboratory Tests 04/05/24 17:24 04/06/24 07:23 Labs and/or images reviewed: Labs reviewed by me, Image(s) reviewed by me Assessment/Plan Assessment/Plan Acute Hypoxic respiratory failure: Oxygen by nasal cannula Acute influenza type B: Tamiflu Pulmonary fibrosis Hypertension Acute on chronic congestive heart failure : Lasix, cardiology consult by Dr. Herrera appreciated History of asthma Presence of pacemaker Time spent 45 minutes Patient is full code Advanced care planning time 20 minutes Patient came from [facility] Examined the patient in the presence of CLEM [place] Patient on room air and being discharged back to [facility] under the care of Dr. Kelli Herrera Plan discussed with: Patient Date of Service: Apr 09, 2024 Billing Provider: MOOSE TRAN MD Common Visit Codes: [id number] INP/OBS CARE(HIGH) MOOSE TRAN MD Apr 09, 2024 08:39
--- NOTE | 2024-04-09 08:46 | DVHDS2 ---
Discharge Summary Date of Admission Apr 05, 2024 at 23:54 Date of Discharge: Apr 09, 2024 Admitting Diagnosis Shortness of breaths Wounds: None Labs/Diagnostic Data: Laboratory Results Test 04/06/24 07:23 04/05/24 20:45 04/05/24 17:24 Sodium Level 140 mmol/L (136-145) Potassium Level 4.2 mmol/L (3.5-5.1) Chloride Level 108 mmol/L (98-107) Carbon Dioxide Level 23 mmol/L (20-31) Anion Gap 9 (5-15) Blood Urea Nitrogen 13 mg/dL (9-23) Creatinine 0.73 mg/dL (0.550-1.02) Glomerular Filtration Rate Calc 82 mL/min (>90) BUN/Creatinine Ratio 17.8 (10.0-20.0) Serum Glucose 105 mg/dL (74-106) Calcium Level 9.4 mg/dL (8.7-10.4) Influenza Type A Antigen Negative (Negative) Influenza Type B Antigen Positive (Negative) SARS-CoV-2 Antigen (Rapid) Negative (NEGATIVE) White Blood Count 4.5 10^3/uL (4.4-10.8) Red Blood Count 4.50 10^6/uL (4.0-5.20) Hemoglobin 9.8 g/dL (12.2-16.2) Hematocrit 31.4 % (36.0-46.0) Mean Corpuscular Volume 69.7 fL (80.0-100.0) Mean Corpuscular Hemoglobin 21.7 pg (28.0-32.0) Mean Corpuscular Hemoglobin Concent 31.1 g/dL (32.0-36.0) Red Cell Distribution Width 20.7 % (11.8-14.3) Platelet Count 267 10^3/uL (140-450) Mean Platelet Volume 8.9 fL (6.9-10.8) Neutrophils (%) (Auto) 65.0 % (37.0-80.0) Lymphocytes (%) (Auto) 21.7 % (10.0-50.0) Monocytes (%) (Auto) 9.8 % (0.0-12.0) Eosinophils (%) (Auto) 2.9 % (0.0-7.0) Basophils (%) (Auto) 0.6 % (0.0-2.0) Neutrophils # (Auto) 2.9 10 ^3/uL (1.6-8.6) Lymphocytes # (Auto) 1.0 10 ^3/uL (0.4-5.4) Monocytes # (Auto) 0.4 10 ^3/uL (0-1.3) Eosinophils # (Auto) 0.1 10 ^3/uL (0-0.8) Basophils # (Auto) 0 10 ^3/uL (0-0.2) Nucleated Red Blood Cells 0.1 % Magnesium Level 2.1 mg/dL (1.6-2.6) Total Bilirubin 0.3 mg/dL (0.2-1.0) Aspartate Amino Transferase (AST) 21 U/L (13-40) Alanine Aminotransferase (ALT) 10 U/L (7-40) Alkaline Phosphatase 95 U/L (46-116) Troponin I High Sensitivity 7 ng/L (</=34) Total Protein 6.2 g/dL (5.7-8.2) Albumin 3.6 g/dL (3.2-4.8) Other Laboratory Tests 04/06/24 07:23 04/05/24 17:24 Brief Hx & Hospital Course: 83-year-old female with a history of pulmonary fibrosis hypertension chronic congestive heart failure asthma presence of pacemaker brought in from [facility] for shortness of breaths found to have influenza type B treated with the Tamiflu. One more day of Tamiflu left patient on room air afebrile Abby test negative being discharged back to [facility] to complete the course of Tamiflu. PCP Dr. Kelli Herrera was informed Consults/Reason for consult Cardiology Dr. Kelli Herrera Operations or Procedures None Condition at Discharge: Fair Final Diagnosis/Problems List Acute Hypoxic respiratory failure: Oxygen by nasal cannula Acute influenza type B: Tamiflu Pulmonary fibrosis Hypertension Acute on chronic congestive heart failure : Lasix, cardiology consult by Dr. Herrera appreciated History of asthma Presence of pacemaker Discharge Disposition: [facility] Facility Discharge Instruct/Medications Diet: Cardiac 2g Na,low cholest Activity: Light activity Follow Up/Referral: Follow up with your long term Medications: see list 39 (Time taken for discharge summary 39 minutes) Discharge Statement: "Patient was advised to return to the ER or call 911 if any headaches, dizziness, shortness of breath, chest pain, abdominal pain, bleeding, fevers, or worsening of medical condition. Patient was counseled about treatment plan, medications, possible side effects, patientverbalized understanding. All questions were answered to the best of my ability. This discharge took greater then 30 minutes in planning, reviewing documentation, counseling the patient, and discussing with other team members." ASSESSMENT ASSESSMENT Hospital Course Improved Assessment Acute Hypoxic respiratory failure: Oxygen by nasal cannula Acute influenza type B: Tamiflu Pulmonary fibrosis Hypertension Acute on chronic congestive heart failure : Lasix, cardiology consult by Dr. Herrera appreciated History of asthma Presence of pacemaker Date of Service: Apr 09, 2024 Billing Provider: MOOSE TRAN MD Common Visit Codes: [id number] DISCH DAY >30min MOOSE TRAN MD Apr 09, 2024 08:46
[2024-04-09 09:01] VITALS: BP 109/54; PULSE 82; RESP 19; TEMP 98.7; O2SAT 96
[2024-04-09 12:46] VITALS: BP 101/69; PULSE 84; RESP 18; TEMP 98.1; O2SAT 94
--- NOTE | 2024-04-09 15:15 | DVHPN2 ---
Progress Note - Dictate Date Seen: Apr 09, 2024 Medical Necessity Reason Pt with a Central, PICC or Fol: No Subjective Patient was seen and evaluated in follow up. Sitter is at bedside. Patient is complaining of a cough. Patient remains on Tamiflu. Patient is pending transfer back to [facility]. vital signs Vital Sign Date Time Temp Pulse Resp B/P (MAP) Pulse Ox O2 Delivery O2 Flow Rate FiO2 04/09/24 12:46 98.1 84 18 101/69 (80) 94 98.1 04/09/24 08:00 Room Air* 0 21 Total Intake and Output 04/08/24 04/08/24 04/09/24 15:00 23:00 07:00 Intake Total 460 ml 580 ml Balance 460 ml 580 ml medications Current Medications Medications Dose Ordered Sig/Jerica Route Start Time Stop Time Status Last Admin Dose Admin Valsartan 160 mg DAILY PO 04/06/24 10:00 Pantoprazole Sodium 40 mg DAILY@0600 PO 04/06/24 06:00 04/09/24 05:59 40 MG Albuterol 2.5 mg Q6HPRN PRN NEB 04/06/24 00:00 Ondansetron HCl 4 mg Q4HP PRN IV 04/06/24 00:00 04/07/24 17:24 4 MG Enoxaparin Sodium 40 mg DAILY SC 04/06/24 10:00 Acetaminophen 650 mg Q6HP PRN PO 04/06/24 00:00 04/08/24 07:57 650 MG Oseltamivir Phosphate 30 mg Q12HR PO 04/06/24 10:00 04/10/24 22:01 04/09/24 11:53 30 MG Acetaminophen/ Hydrocodone Bitart 1 tab Q6HPRN PRN PO 04/07/24 13:15 04/09/24 11:54 1 TAB objective GENERAL: Awake, alert, oriented. LUNGS: Clear. CARDIOVASCULAR: Heart sounds are good. ABDOMEN: Soft. laboratory and microbiology Laboratory Tests 04/06/24 07:23 04/05/24 17:24 Test 04/06/24 07:23 Range/Units Serum Glucose 105 74-106 mg/dL Problem List Acute hypoxic respiratory failure. Influenza type B. Pulmonary fibrosis Hypertension. Acute on chronic congestive heart failure. History of asthma. Presence of pacemaker. Assessment/Plan Continued all current supportive medical care. DVT and GI prophylactics. Tamiflu. Additional plan as per the hospital course. Plan discussed with: Patient FARZAD DIALLO MD Apr 09, 2024 14:16
[2024-04-09 16:52] VITALS: BP 115/78; PULSE 80; RESP 19; TEMP 98; O2SAT 96
== END 2024-04-09 19:50 | DRG 193 ==
LOC: EDBD 13:30 → ER 13:30 → EDUNIT# 13:30 → OVERFLOW 23:54 → EAST 04-07 06:25
PROVIDERS: ADMIT Nurse Practitioner; ATTEND Family Medicine
DX: J10.1 Influenza due to other identified influenza virus with other respiratory manifestations (principal); I50.33 Acute on chronic diastolic (congestive) heart failure; J96.01 Acute respiratory failure with hypoxia; Q79.1 Other congenital malformations of diaphragm; I11.0 Hypertensive heart disease with heart failure; J84.10 Pulmonary fibrosis, unspecified; B34.9 Viral infection, unspecified; J45.909 Unspecified asthma, uncomplicated; K21.9 Gastro-esophageal reflux disease without esophagitis; Z20.822 Contact with and (suspected) exposure to COVID-19; E11.9 Type 2 diabetes mellitus without complications; Z90.710 Acquired absence of both cervix and uterus; Z95.0 Presence of cardiac pacemaker; Z88.0 Allergy status to penicillin; Z88.2 Allergy status to sulfonamides; Z79.899 Other long term (current) drug therapy
CPT/HCPCS: 36415; 71046; 80048; 80053; 83735; 84484; 85025; 87426; 87804; 93005; 97163; G0378; G9035; J2405